=== PATIENT | male | born 1950 | race Caucasian/White ===

== ENCOUNTER 2017-06-30 12:10 | Inpatient (IN) ==
[2017-07-06 06:16] VITALS: BMI 37.2
[2017-07-06] MEDS: LR 1,000 ML IV SCH ×3 (06:20→11:07)
[2017-07-06] MEDS: FLEET PHOSPHO - SODA ENEMA 133ml PR PRN ×2 (06:50→07:03)
[2017-07-06] MEDS ORDERED: FentaNYL 250 MCG/5 ML INJECTION ONE ×2 (07:12→11:00)
[2017-07-06] MEDS ORDERED: PROPOFOL 20 ML ONE ×2 (07:12→07:13)
[2017-07-06] MEDS ORDERED: LACRI-LUBE EYE OINT 3.5gm ONE (07:12)
[2017-07-06] MEDS ORDERED: ONDANSETRON 4 MG/2 ML INJECTION ONE ×2 (07:12→07:54)
[2017-07-06] MEDS ORDERED: SUCCINYLCHOLINE 20mg/mL 10mL INJECTION ONE (07:13)
[2017-07-06] MEDS ORDERED: ROCURONIUM 50 MG/5 ML INJECTION IVP ONE ×2 (07:13→11:46)
[2017-07-06] MEDS ORDERED: SCOPOLAMINE 1mg/3 days PATCH TD ONE ×2 (07:14→07:22)
[2017-07-06] MEDS: ESMOLOL IV ONE ×3 (07:45→10:43)
[2017-07-06] MEDS: KETAMINE IV ONE ×3 (07:45→10:43)
[2017-07-06] MEDS: DEXMEDETOMIDINE IV ONE ×2 (07:45→10:43)
[2017-07-06] MEDS: [UNRECOGNIZED DRUG - OTHER] IV ONE ×2 (07:45→10:43)
[2017-07-06] MEDS: LIDOCAINE 2% IV ONE (07:45)
[2017-07-06] MEDS: [UNRECOGNIZED DRUG - OTHER] IV ONE (07:45)
[2017-07-06] MEDS: PROPOFOL IV ONE ×3 (07:45→10:43)
[2017-07-06] MEDS ORDERED: METOCLOPRAMIDE 10mg/2ml INJECTION ONE (07:54)
[2017-07-06] MEDS ORDERED: DEXAMETHASONE 4 MG/ML INJECTION ONE (07:54)
[2017-07-06] MEDS ORDERED: MIDAZOLAM 2mg/2ml INJECTION ONE ×3 (08:26→12:37)
[2017-07-06] MEDS ORDERED: SALINE FLUSH *Sterile* 10 ML SYRINGE ONE (08:50)
[2017-07-06] MEDS ORDERED: PHENYLEPHRINE INJ 10 MG/ML VIAL IV ONE (08:50)
[2017-07-06] MEDS ORDERED: NS 1,000 ML IV SCH ×2 (10:14→14:17)
[2017-07-06] MEDS ORDERED: DEXMEDETOMIDINE IV ONE (10:15)
[2017-07-06] MEDS ORDERED: PROPOFOL IV ONE (10:15)
[2017-07-06] MEDS ORDERED: ESMOLOL IV ONE (10:15)
[2017-07-06] MEDS ORDERED: KETAMINE IV ONE (10:15)
[2017-07-06] MEDS ORDERED: [UNRECOGNIZED DRUG - OTHER] IV ONE (10:15)
[2017-07-06] MEDS ORDERED: FUROSEMIDE 40 MG/4 ML INJECTION ONE (10:56)
[2017-07-06] MEDS ORDERED: METOPROLOL 5mg/5ml INJECTION IVP ONE (11:01)
[2017-07-06] MEDS ORDERED: NS IV PRN ×2 (12:03→12:34)
[2017-07-06] MEDS ORDERED: PHENYLEPHRINE IV PRN (12:03)
[2017-07-06] MEDS ORDERED: VASOPRESSIN 20unit/ml INJECTION ONE (12:10)
[2017-07-06] MEDS ORDERED: NOREPINEPHRINE DRIP IV PRN (12:34)
--- NOTE | 2017-07-06 13:42 | General Surgery Procedure Note ---
Date of Procedure: 07/06/17 Surgeon: Albina Porras (Sharita) [employer] Operations Vice President: Bob Pete APRN Postoperative Diagnosis: Colon cancer at 20 cm from anal verge, Right kidney mass Procedure: 1.Open Low Anterior Resection with Primary anastomosis , 2. Partial right nephrectomy. Estimated Blood Loss: See Anesthesia Record.
[2017-07-06] MEDS ORDERED: ONDANSETRON 4 MG/2 ML INJECTION IVP PRN (14:17)
[2017-07-06] MEDS ORDERED: MORPHINE PCA 30 MG/30 ML SYRINGE IV PRN (14:17)
[2017-07-06] MEDS ORDERED: MIDAZOLAM 5mg/5ml INJECTION IV PRN (14:17)
[2017-07-06] MEDS ORDERED: METOCLOPRAMIDE 10mg/2ml INJECTION IVP PRN (14:17)
[2017-07-06] MEDS ORDERED: FentaNYL 100 MCG/2 ML INJECTION IVP PRN (14:17)
[2017-07-06] MEDS ORDERED: LIDOCAINE 1% (10mg/ml) 2mL INJ PF SDV ID ONE (14:35)
[2017-07-06] MEDS ORDERED: HEPARIN SUB-Q 5,000units/0.5ml INJECTION SQ ONE (14:44)
[2017-07-06] MEDS ORDERED: MetroNIDAZOLE PB 500 MG/100 ML BAG IV SCH (14:45)
[2017-07-06] MEDS ORDERED: LEVOFLOXACIN PB 750 MG/150 ML BAG IV SCH (14:45)
[2017-07-06] MEDS ORDERED: THROMBIN 5000 UNIT OPSITE ONE ×2 (15:30→15:33)
--- NOTE | 2017-07-06 15:38 | History & Physical Report ---
History of Present Illness Date: 07/06/17 Chief complaint: Colon Adenocarcinoma, S/P resection HPI: Shaun is a 67 yr old male who has been under the memory care as Dr. Mejia. Patient underwent a colonoscopy on 06/20/17 that unfortunately revealed invasive moderate differential colonic adenocarcinoma. Also, upon further radiologic studies. Patient was found to have a mass in the right kidney which was of high suspicion for renal cell carcinoma. CT scan also revealed no on sigmoid colon with increase in number of lymph nodes in the sigmoid mesentery and retroperitoneal adenopathy with increased concern for metastatic disease. Patient was scheduled for a open sigmoid resection and lower anterior resection along with urologic involvement by Dr. Sheriff. He presented for this planned procedure of open low anterior resection of primary asked most cysts along with partial right nephrectomy today on 07/06/17. It is reported that during this procedure patient did lose a significant amount of blood and received a total of 8 units of packed irradiated, Leuko-reduced red blood cells, Along with FFP and Cryo infusion. Patient was intubated and placed on Robbin-Synephrine Drip as well as Propofol/Ketamine drip intraoperative. He was admitted to the ICU and the hospitalist services were consulted for ongoing medical management. At time of examination he has just returned from OR and is in ICU. Robbin- Synephrine drip was weaned down in half at time of transfer to ICU and breath. Blood pressures remain 150-165 systolic. He remains in atrial fibrillation, rapid ventricular rate 120s to 130s, patient does have a known history of atrial fibrillation preoperatively. Review of Systems ROS unobtainable: due to mental status Review of systems: Able to obtain review of systems, currently on ventilator Past Medical History Patient Stated Medical History Chronic atrial fibrillation Coronary artery disease Type II diabetes Hypertension History of iron deficiency anemia Osteoarthritis Obesity Surgical History: Low anterior resection-07/06/17- [facility]. Partial right nephrectomy-07/06/17- Dr. Sheriff. Cholecystectomy 2012- [facility]. Cardiac catheterization EF 60%, diatal LAD 90% stenosis Jose J. Colonoscopy adenocarcinoma rectum 06/20/2017 Family History Updates: Mother , age 83. Diabetes. HTN ( hypertension). Heart attack. Brother. Diabetes. HTN (hypertension). Heart attack. Stroke. Sister. Diabetes. Heart attack. HTN (hypertension). Stroke - Social History Smoking status: Former smoker (, quit 44 years ago) Substance use type: does not use Alcohol intake frequency: does not drink Housing: house Household members: spouse Current occupational status: retired Current residence: Apartment/Private Home Social history: Primary care provider-Dr. Mejia Order Caller-Dr. Lux Medications Home Medications Medication Instructions Recorded Confirmed Type Aspirin [Aspirin EC] 325 mg PO DAILY #0 07/06/08 07/05/17 History Atenolol 100 mg PO DAILY #0 07/06/08 07/06/17 History lisinopril 20 mg tablet 20 mg PO DAILY 01/03/17 07/06/17 History Multivitamin [Chewable-Kamlesh] 2 tab PO DAILY 04/12/17 07/06/17 History Atorvastatin [Lipitor] 40 mg PO HS 04/27/17 07/06/17 History Glucophage (metformin) 500 mg 500 mg PO BID #2 tab 05/27/17 07/06/17 History tablet Naproxen sodium 220 mg tablet 220 mg PO Q12H PRN 06/07/17 07/06/17 History Allergies Allergy/AdvReac Type Severity Reaction Status Date / Time Penicillins Allergy Unknown unknown Verified 07/06/17 06:06 Exam Vital Signs: Temperature 97.8 F 07/06/17 06:15 Pulse Rate 117 H 07/06/17 14:10 Respiratory Rate 13 07/06/17 14:10 Blood Pressure 122/68 07/06/17 06:15 Pulse Oximetry 92 07/06/17 14:10 Telemetry Rhythm: A-fib with RVR Height/Weight/BMI: Height 1.83 m Weight 124.5 kg Body Mass Index 37.2 - Constitutional Present: no acute distress, morbidly obese, somnolent - Routine HEENT Exam ENT: Present: mucous membranes moist - Routine Respiratory Exam Present: CTA bilaterally Comments: On ventilator - Routine Cardiovascular Exam Present: RRR, S1, S2 - Routine Abdominal Exam Present: soft Comments: Large post-op dressing intact. No evidence of bleeding through Dressing - Routine Extremities Exam Present: pulses intact - Routine Skin Exam Present: intact, dry, warm - Routine Neurological Exam Present: altered mental status - Routine Psychiatric Exam Present: unable to assess Results - Labs CBC & Chem 7: 07/06/17 14:05 07/06/17 12:55 - ABG Interpretation ABG results: 07/06/17 12:55 ABG pH 7.280 L ABG pCO2 38 ABG pO2 316 H ABG HCO3 17.9 L ABG Total CO2 19.1 L ABG O2 Saturation 100.0 H ABG Base Excess -8.2 L Assessment and Plan (1) Hypotension Current visit: Yes Status: Acute (2) Adenocarcinoma Current visit: Yes Status: Acute (3) S/P colon resection Current visit: Yes Status: Acute (4) Renal mass Current visit: Yes Status: Acute Assessment and Plan: Impression Hypotension, intraoperative-RLL 07/06/17 Significant Intraoperative blood loss S/P Sigmoid Resection S/P- right partial nephrectomy related to renal mass Adenocarcinoma of the colon Coronary artery disease Atrial fibrillation-chronic Hypertension Diabetes History of iron deficiency anemia Obesity Plan Patient seen post-op in ICU. Medical consultation to hospitalist services for medical management of existing comorbidities. At this time, patient is in serious condition, however, stable on the ventilator. Artline is zeroed and blood pressures are evaluated at the bedside. Systolic blood pressures remain 150-165 systolic. Will stop norepinephrine drip and monitor carefully. He continues to be on normal saline, will finish current liter and then switched to D5 half-normal saline. He is at significant risk for fluid overload given the amount of IV fluids and blood products he received in the operating room. It does appear intraoperatively he did receive a one-time dose of 40 milligrams of IV Lasix. He may require further diuresis later on. Toradol and Lovenox are both contraindication at this time, given the need for renal preservation and recent bleeding Will continue to follow serial blood counts.CBC and Renal panel at 1800 today. Recheck ABG at this time. Check CBC, BMP, mg, ABG and Chest Xray tomorrow morning Monitor Accuchecks SCDs to bilateral lower extremity for DVT prophylaxis Will discuss further orders and plan of care with attending, Dr. Goel. Admit discharge medical care will return to primary care provider, Dr. Mejia DVT Prophylaxis: SCD's GI Prophylaxis: Protonix Resuscitation Status: Full Code - Time spent with patient Time with patient PN: 50 minutes Coordination of Care: >50% of visit spent providing counseling/coordination of care - Physician Narrative Physician: Daxa Goel MD Narrative: Date: 07/06/17 Time: 1820 I have independently evaluated and examined this patient. I reviewed the chart, the patient's history, and the LAB INSTRUCTOR/PA's documented findings as above. We discussed and formulated the assessment and plan as above with additions as below: I was called urgently to see Mr. Jones with surgical team a surgery was completed due to intraoperative hypotension and large volume blood loss. He transferred to the ICU on the ventilator and with Robbin-Synephrine infusing to maintain systolic blood pressure. He received 8 units of blood in the operating room in addition to cryo, FFP, and platelets or recent platelets. Blood pressure was about 140 systolic on arrival to ICU with Robbin-Synephrine infusing. Patient was sedated on arrival to the ICU and has subsequently had a fentanyl drip initiated for pain control. Robbin-Synephrine has been titrated off and FiO2 decreased progressively to 30% with stable oxygenation. Patient was unresponsive when evaluated earlier shortly after arrival in the ICU , breath sounds were clear anteriorly and cardiac rhythm slightly irregular. On reassessment at 1730 the patient was moving all extremities to command, gaze was conjugate, and he was nodding yes/no to indicate presence of pain and having seen his earlier. Anterior breath sounds are minimally coarse on reassessment, cardiac rhythm is irregular with low-grade tachycardia, and abdomen is distended without bowel sounds present. ABG at 4:30: 7.38/33/228/19.5 with FiO2 50%-discussed with respiratory therapy and patient subsequently titrated FiO2 30%. Discussed with Dr. Sheriff and Dr. Porras; patient breathing spontaneously when reevaluated with good tidal volumes. Plan to proceed with extubation this evening. Chest x-ray reviewed by myself demonstrating well-placed ET tube earlier today and slight increased vascular markings. Repeat chest x-ray in a.m. Patient has had significant volume replacement today with borderline urine output-may require diuresis tonight, do not believe additional fluid boluses will be needed for decreased urine output. Corrective scale insulin ordered, Accu-Cheks every 6 hours. Blood pressure has remained stable off Robbin-Synephrine for several hours. Hemoglobin 14.4 earlier this afternoon, repeat counts pending. Continue to monitor closely, at risk for complications of large volume blood transfusion. Hospital Course Summary Disclaimer: The visit summary below is not to be considered part of the above Progress Note. Hospital Course: Impression Significant Intraoperative blood loss S/P Sigmoid Resection S/P- right partial nephrectomy related to renal Mass Adenocarcinoma Coronary artery disease Atrial fibrillation-chronic Hypertension Diabetes History of iron deficiency anemia Obesity Plan Patient seen post-op in ICU. Medical consultation to hospitalist services for medical management of existing comorbidities. At this time, patient is in serious condition, however, stable on the ventilator. Artline is zeroed and blood pressures are evaluated at the bedside. Systolic blood pressures remain 150-165 systolic. Will stop norepinephrine drip and monitor carefully. He continues to be on normal saline, will finish current liter and then switched to D5 half-normal saline. He is at significant risk for fluid overload given the amount of IV fluids and blood products he received in the operating room. It does appear intraoperatively he did receive a one-time dose of 40 milligrams of IV Lasix. He may require further diuresis later on. Toradol and Lovenox are both contraindication at this time, given the need for renal preservation and recent bleeding Will continue to follow serial blood counts.CBC and Renal panel at 1800 today. Recheck ABG at this time. Check CBC, BMP, mg, ABG and Chest Xray tomorrow morning Monitor Accuchecks SCDs to bilateral lower extremity for DVT prophylaxis Will discuss further orders and plan of care with attending, Dr. Barriga. Admit discharge medical care will return to primary care provider, Dr. Mejia
--- NOTE | 2017-07-06 15:55 | XRay Report ---
Indication: post procedure PROCEDURE: XR chest post-procedure 1V: Encounter: Initial Comparison: None Findings: Endotracheal tube in place with the tip projecting 2 cm above the [place]. Nasogastric tube with the tip and side port projecting over the body of the stomach. Right PICC line with the tip projecting over the lower SVC. No pneumothorax. Left upper lobe possible atelectasis. No definite pleural effusion on this supine view. Heart size and mediastinal contours are within normal limits. Impression: Tubes and lines as above. .
[2017-07-06] MEDS: FentaNYL 1,000 MCG in NS 80 ML IV PRN (16:12)
--- NOTE | 2017-07-06 17:58 | Anesthesia Postoperative Note ---
- Date and Time Date: 07/06/17 Time: 17:57 - Status Patient Participated in Evaluation: Patient Intubated Vital Signs: Temperature 97.8 F 07/06/17 06:15 Pulse Rate 108 H 07/06/17 16:42 Respiratory Rate 18 07/06/17 16:42 Blood Pressure 122/68 07/06/17 06:15 Pulse Oximetry 100 07/06/17 16:42 Respiratory Function: Intubated Cardiovascular Function: Regular Pulse EKG: Sinus Rhythm Mental Status: Alert and Oriented (sedated on ventilator) Pain Intensity: 0 (FLACC) Unable to Assess Pain Due to: Medicated/Sleeping Hydration: IV Infusing Complications During Recover: None Apparent - Follow-Up Instructions Instructions: Per Surgeon
[2017-07-06] MEDS: D5-1/2NS with KCL 20mEq 1,000 ML IV SCH (18:51)
[2017-07-06] MEDS: PANTOPRAZOLE 40 MG INJECTION IVP SCH (19:54)
[2017-07-06] MEDS: NS FLUSH BAG 500ml IV PRN (19:57)
[2017-07-06] MEDS: INSULIN ASPART 100unit/ml INJECTION SQ PRN (23:26)
[2017-07-07] MEDS: FentaNYL 1,000 MCG in NS 80 ML IV PRN ×2 (02:45→18:51)
[2017-07-07] MEDS: D5-1/2NS with KCL 20mEq 1,000 ML IV SCH ×2 (02:45→10:25)
[2017-07-07] MEDS: INSULIN ASPART 100unit/ml INJECTION SQ PRN (04:31)
--- NOTE | 2017-07-07 08:26 | Operative Note ---
DATE OF SERVICE 07/06/2017 SURGEON Saulo Porras MD ASSISTANTS GLORIA Murphy MD PROCEDURE Low anterior resection, enterotomy with excision of apparent metastatic implant/ nodule involving terminal ileum with primary closure. ANESTHESIA General endotracheal. EBL AND FLUIDS Please see chart. BRIEF HISTORY/INDICATIONS Mr. Jones is a 69-year-old gentleman who recently was sent to my office as a result of the finding of anemia upon laboratory evaluation. The patient subsequently underwent endoscopic evaluation and, unfortunately, was found to have a near obstructing colon cancer at 20 cm from the anal verge. The patient did undergo metastatic workup preoperatively including a CT scan of the chest, abdomen and pelvis. Unfortunately, the CT scan of his abdomen did reveal an exophytic mass involving the lower pole of the right kidney. The patient was sent on to Urology who recommended the patient undergo a partial nephrectomy at the time of his colonic resection. The patient presents today to undergo these procedures. Partial nephrectomy portion of the procedure will be dictated by Dr. Tommy Sheriff. As a result of this invasive adenocarcinoma involving the sigmoid colon, it was recommended to the patient that he undergo surgical intervention. The patient presents today to undergo a sigmoid resection/low anterior resection. Again, for completeness, please refer to notes in the patient's chart. FINDINGS Upon laparotomy the liver edge was smooth without nodularities. The small bowel was run from the ligament of Treitz to the terminal ileum. Unfortunately, there was a portion of the small bowel that was adhered to the cancer within the pelvis. Although the mass was described at 20 cm from the anal verge, the mass itself was actually deep within the pelvis and was, unfortunately, adhered to the lateral pelvic abdominal wall. The ascending colon, transverse colon, descending colon otherwise was without palpable abnormalities. Stomach was without visible abnormalities. The right kidney description will be dictated by Dr. Sheriff. During mobilization of the mass from the left lateral pelvic wall one could see that it appeared that colon cancer had already perforated and had sealed itself often and was contained along the left lateral pelvic wall. One could see several enlarged lymph nodes adjacent to the mass involving the rectosigmoid junction. When the small bowel was able be freed from the mass and delivered back up into the abdominal cavity, one could see there was a whitish nodule/implant involving the terminal ileum. This apparent metastatic nodule/ implant was only about 8 cm from the ileocecal valve region. I elected therefore not to proceed with a segmental small bowel resection given its close proximity to the ileocecal valve region. A full-thickness excision of this nodule was performed with subsequent closure of the enterotomy. The tumor itself was able to be resected in its entirety and a primary anastomosis/ coloproctostomy was performed. Dissection was carried down below the peritoneal reflection. DESCRIPTION OF PROCEDURE After informed consent was obtained, the patient was brought to the operative suite and placed on the table in a supine fashion. The abdomen was then prepped and draped in sterile fashion. A formal time-out was then completed. A large midline incision was then made from the xiphoid process down to the suprapubic region. Underlying subcutaneous tissues, fascia and peritoneum was then opened to the extent of the incision. Abdominal cavity was explored. Findings were as noted above. Following a formal abdominal exploration, attention was focused to the pelvis. The small bowel that was adhered to the tumor itself was able to be dissected away sharply as well as bluntly. One could then see that there was an apparent metastatic nodule/implant involving the terminal ileum as discussed above. The apparent metastatic implant/nodule was about 8 cm from the ileocecal valve as discussed above. Attention was then focused back to the left colon. The white line of Toldt was incised upon the mid descending colon. The left colon was reflected medially. Initially dissection was carried up towards the splenic flexure. I elected to go ahead and mobilize the splenic flexure. Splenocolic and renocolic ligaments were divided under direct visualization and the splenic flexure was completely mobilized. Distal portion of the gastrocolic ligament was also divided until the splenic flexure had been completely mobilized. Attention was then focused towards the pelvis. As stated above, there was a large mass perhaps about 8 cm in diameter involving the rectosigmoid junction. The mass was densely adhered to the lateral pelvic wall. Mass was began to be dissected away from the pelvic wall and one then began to see roro stool-like material. One could see that it appeared that the colon perhaps had already perforated and walled itself off along the lateral pelvic wall. Upon palpation one could feel that the mass had extended into the lateral pelvic wall. At this time I focused my attention back towards identification of the left ureter. Left ureter was identified above the level of the iliacs. Left ureter was then carefully dissected out in a [id number] fashion. One could then see that the ureter itself was adjacent to this large mass involving the left lateral pelvic wall. The ureter itself was then continued to be carefully and meticulously dissected away from the tumor itself. Once the ureter had been completely freed away from the tumor, attention was then directed towards the portion of the tumor that had become contiguous with the left lateral pelvic wall. This portion of the left lateral pelvic wall was excised grossly in its entirety and submitted for pathologic evaluation. A point about 8-10 cm proximal to the visible mass was then obtained upon the descending colon. A small opening was then created within mesentery at this location. A GI-75 stapler was placed across the colon at this location and fired. The mesentery at this level was then sequentially divided down to the sacral promontory sequentially between right angle clamps. As one reached the root of the mesentery, one could see multiple enlarged lymph nodes. These enlarged lymph nodes were resected in continuity with the specimen. Dissection was carried out beyond the visible enlarged lymph nodes down to the origin of the vessels. Now dissection had been carried down to the sacral promontory. Presacral space was then entered and the mesorectum was then dissected off the sacrum in the presacral space under direct visualization. A lighted [employer]. Michel's retractor was utilized to provide exposure. As stated above the tumor itself was lower than I had anticipated and was within the pelvis. The lateral mesorectum was excised and dissection was carried down below the peritoneal reflection. Dissection was carried out until approximately 6-8 cm had been dissected out beyond the tumor itself. Rectum at this level was then dissected out circumferentially. A contour stapler was then placed across the rectum at this location and fired. The remaining mesorectum was then sequentially divided between right angle clamps and ligated with a combination of 0 Vicryl and 3-0 Vicryl ties. At this time the rectum, mass and distal descending colon was then passed off the table as a surgical specimen. The proximal staple line was then brought forth into the pelvis without any undue tension. Attention was then directed towards performing the anastomosis. The left ureter was again identified and remained to be intact in its entirety. Prior areas of dissection were inspected and found to be hemostatic in nature. Two Allis clamps were then placed upon the proximal staple line and the staple line itself was then transected. Three Allis clamps were then placed upon the transected end of the colon. Up to a 31 mm EEA sizer was then placed within the transected end of the colon without difficulty. A pursestring suture with 2-0 Prolene was then placed circumferentially around the transected end of the colon. A 33-mm EEA stapler was then brought forth the operative field. The anvil portion of the stapler was placed within the pursestring suture and the pursestring suture was then tied securely resulting in nice imbrication of the transected colon adjacent to the anvil portion of the stapler. Next, I had my assistant activities director then "go below." My assistant activities director performed a 3-4 finger anal dilatation. 33-mm EEA stapler was then placed into the anal verge and advanced up to the staple line upon the rectum. I then had my assistant activities director advance the trocar portion of stapler outward. Trocar portion of the stapler was allowed to exit just anterior to the staple line upon the rectum. Anvil portion of stapler was then attached to the trocar portion of the stapler and tightened to the appropriate tension and fired. Stapler was then loosened and withdrawn from the anal verge. Two complete doughnuts of tissue were obtained within the stapler. Saline was then placed within the pelvis until the anastomosis was beneath water. I then grasped the descending colon proximal to the anastomosis. I then had my assistant activities director place a rigid proctoscope into the anal verge/anal canal and insufflate the rectum and anastomosis. With the anastomosis fairly taut with air and air passing out adjacent to the rigid proctoscope at the anus, one could not see any evidence for extravasation of air bubbles coming forth through the saline, i.e., the anastomosis was airtight. Saline was then suctioned. Anastomosis was without any evidence for vascular compromise. There was no tension on the anastomosis. Left ureter was again identified and remained to be intact. Prior areas of dissection were again inspected and found to be hemostatic in nature. At this time attention focused towards the partial nephrectomy portion. This portion of the procedure will be dictated by Dr. Sheriff. I did help provide exposure to the right kidney. The white line of Toldt along the right pericolic gutter was incised. The hepatic flexure was mobilized. The patient had undergone a prior cholecystectomy and there was some omentum adhered to the gallbladder fossa which was divided with electrocautery. Hepatic flexure was completely mobilized and reflected medially and caudally. The duodenum was also Kocherized and reflected medially. Complete exposure of the right kidney and right pedicle at this time had been obtained. The remaining portion of the partial nephrectomy will be dictated by Dr. Sheriff. Following completion of the partial nephrectomy, attention was directed towards closure. Instrument, sponge and needle counts were performed and found to be correct. Fascia was closed in running fashion with #1 PDS suture. A 19-Swedish drain was placed and allowed to exit within the right upper quadrant. The drain was placed along the right pericolic gutter in case the patient would develop a postoperative urinary leak from the partial nephrectomy. Attention was then directed towards closure of the subcutaneous tissues once the fascia had been closed. Given the patient's obesity, I elected to place a 19-Swedish drain within the subcutaneous tissues. The subcutaneous tissues were irrigated with Betadine solution. A 19- Swedish drain was then placed adjacent to the fascia. The subcutaneous tissue was then closed in layers with 0 Vicryl. Skin edges were then imbricated utilizing viv. Drains were secured to the anterior abdominal wall with 2- 0 Prolene. The patient was in critical condition as a result of the blood loss that occurred during the partial nephrectomy. He was sent to the ICU in critical condition following completion of the procedure. Additionally, it should be noted that Bob Pete APRN, was present throughout the entire case and played a pivotal role in providing assistance and exposure during the course of the procedure. ANIRUDH
--- NOTE | 2017-07-07 08:30 | XRay Report ---
Indication: respiratory failure PROCEDURE: XR chest 1V: Encounter: Initial Comparison: July 06, 2017 Findings: Prior endotracheal tube has been removed. Nasogastric tube remains in place along with a right PICC line. Lungs are hypoinflated with linear atelectasis in both lungs. No focal lobar consolidation. No pneumothorax. Cardiomediastinal contours are stable. Impression: Extubation with bilateral areas of atelectasis. .
[2017-07-07] MEDS: PANTOPRAZOLE 40 MG INJECTION IVP SCH (08:49)
--- NOTE | 2017-07-07 09:17 | Operative Note ---
DATE OF THE PROCEDURE July 06, 2017 PREOPERATIVE DIAGNOSES 1. Right renal mass. 2. Colon cancer. POSTOPERATIVE DIAGNOSES 1. Right renal mass. 2. Colon cancer. PROCEDURE PERFORMED 1. Right open partial nephrectomy. 2. Intraoperative use of ultrasound. PRIMARY SURGERY Tommy Sheriff MD BLOOD LOSS 1000 mL of blood. FLUIDS 8 units of packed red blood cells. 1 PFC t. 1 cryo precipitate. INDICATION FOR THE PROCEDURE This is a 67-year-old male with a history of colon cancer who was found to have also a 4 cm right renal mass on staging. Dr. oPrras is taking the patient today for an open colectomy and after discussion of his options that patient also elects to undergo a concomitant right open partial nephrectomy in the same setting. The risks and benefits of the procedure were discussed with him and his and he agreed to proceed. DESCRIPTION OF THE PROCEDURE By the time I got to the OR the patient was already positioned in place and Dr. Porras had already started his portion of the procedure. The patient was supine on the table and he had a midline incision. Once Dr. Porras had completed his portion of the procedure, I took over to perform the right open partial nephrectomy. Please refer to Dr. Porras's dictation for the first part of the procedure. I began by reflecting the right colon off Gerota's fascia. I then kocherized the duodenum medially which exposed the IVC. I then identified the psoas muscle and the right ureter. I then marched up until I reached the renal hilum. I identified the right renal vein and it was dissected and a vessel loop was placed around it. I then dissected the renal artery and also placed a vessel loop around it. Of note, the renal artery had early bifurcation and so I placed two vessel loops, one around each branch. Once I had the hilum dissected, I turned my attention to defatting of the kidney. The Gerota's fascia was opened on top of the kidney. The kidney was defatted almost completely and I exposed the tumor which was localized in the posterior midpoint of the kidney. The posterior aspect of the kidney and upper pole * were completely mobilized in order to gain maximal mobility. I then used the drop-in ultrasound probe to visualize the tumor and carrie the margin of the tumor with a Bovie. I then clamped the renal arteries and vein and confirmed absence of flow with the Doppler. The kidney was also placed on ice during clamping. After about 10 minutes of icing, I began by performing the partial nephrectomy using Metzenbaum scissors. The tumor was excised completely with a margin of healthy tissue. During excision, I noted some significant bleeding from a major venous branch in the bed of the partial nephrectomy. I attempted to control the bleeding by [id number] 3-0 PDS; however, this was not successful. At this point I decided to apply pressure on the kidney in order to control the bleeding that was significant and allow the patient to get blood transfusion meanwhile. I then placed a larger clamp at the base of the renal artery and it seemed that that slowed down the bleeding quite a bit. Once this was done I placed renorrhaphy sutures using 0 Vicryl with Hem-o-za clips on the tail. Using the sliding clip technique, I then approximated the edge of the defect in the kidney. I also placed thrombin and Surgicel in the bed of the partial nephrectomy. At this point it appeared that the bleeding was well controlled. We had about 1000 mL of blood loss and the patient received multiple units of blood; however, he was stable. I then unclamped the renal vein and the two branches of the renal artery along with the additional clamp that I placed at the base of the renal artery next to the aorta. There was good reperfusion of the kidney and there was no significant bleeding noted from the partial nephrectomy bed. Total cold ischemia time was 54 minutes. I then observed the kidney for another 5 minutes and, again, there was no bleeding noted. A drain was then placed in the retroperitoneum behind the kidney. This was completed my portion of the case and then the care of the patient was turned back to Dr. Porras to complete his procedure. DISPOSITION The patient will be admitted to the Intensive Care Unit postoperatively. I will along with General Surgery to monitor for bleeding or any urine leak. ANIRUDH
[2017-07-07] MEDS: MAGNESIUM SULFATE 1gm PREMIX 1 GM/100 ML BAG IV SCH ×2 (10:24→11:37)
--- NOTE | 2017-07-07 15:30 | Progress Note ---
DATE OF SERVICE 07/07/2017 FINDINGS Mr. Jones, surprisingly looks quite well today despite the magnitude of surgery that he had undergone yesterday. He denied much in the way of severe abdominal pain. EXAM VITAL SIGNS: Afebrile, normotensive. Remains slightly tachycardic. CHEST: Clear to auscultation bilaterally. HEART: Regular rate and rhythm. Normal S1 and S2 without gallops, murmurs or clicks. ABDOMEN: Palpation of the abdomen reveals it to be soft with incisional tenderness present. His ANTONIO drains were serosanguineous but there was a minimal amount of a material within the drains. LABORATORY/RADIOGRAPHIC EVALUATION The patient had a CBC today and his hemoglobin is 12.1. White count is 10.7. BMP obtained and found to be without marked abnormalities. Glucose is slightly elevated to 39. ASSESSMENT 67-year-old gentleman status post low anterior resection, right partial nephrectomy, patient doing well from a clinical standpoint. PLAN Will go ahead and DC NG. The patient is on clear liquids. Will continue otherwise with current care. I appreciate hospitalists' care in this patient. ANIRUDH
[2017-07-07] MEDS: 1/2 NS with KCL 20mEq 1,000 ML IV SCH (16:41)
[2017-07-07] MEDS ORDERED: FUROSEMIDE 20 MG/2 ML INJECTION IVP ONE (18:17)
--- NOTE | 2017-07-07 18:18 | Progress Note ---
- Date 07/07/17 Subjective: Mr. Jones reports that his abdomen is uncomfortable but is having no nausea or vomiting. He denied dyspnea but has some cough and sputum production- abdominal pain increases with cough. He denied fevers or chills. He's not been out of bed but bed was repositioned into chair configuration allowing him to "sit" earlier today. He denies sore throat and is tolerating ice chips and sips of water. He is not aware of any flatus thus far. Objective Vital signs: Temperature 97.8 F 07/07/17 16:00 Pulse Rate 111 H 07/07/17 17:00 Respiratory Rate 25 H 07/07/17 17:00 Blood Pressure 123/68 07/07/17 17:00 Pulse Oximetry 95 -2 L 07/07/17 17:00 I/O 6229/1461 yesterday NAD, alert EOMI, conjunctiva clear, pupils equal, sclera anicteric, oropharynx clear Respirations nonlabored, good airflow, breast sounds clear anteriorly Regular rhythm, S1-S2 Abdomen is soft with mild generalized tenderness, no bowel sounds are appreciated Lower extremities without edema MAEW, sensation intact 4 extremities Rhythm: Atrial Fibrillation with RVR (Rate 110-120) Height/Weight/BMI: Height 1.83 m Weight 129.4 kg Body Mass Index 37.2 Results - Labs CBC & Chem 7: 07/07/17 04:16 07/07/17 04:16 Labs: S89 B6 L3 M2 Magnesium 1.4 - ABG Interpretation ABG results: 07/06/17 07/06/17 12:55 16:30 ABG pH 7.280 L 7.380 ABG pCO2 38 33 L ABG pO2 316 H 228 H ABG HCO3 17.9 L 19.5 L ABG Total CO2 19.1 L 20.5 L ABG O2 Saturation 100.0 H 100.0 H ABG Base Excess -8.2 L -4.8 L - Imaging and Cardiology Chest x-ray Status: image reviewed by me (poor inspiratory effort with basilar atelectasis, no focal infiltrate) Assessment and Plan (1) Hypotension Current visit: Yes Status: Acute Assessment and Plan: Impression Hypotension, resolved High-volume blood transfusion; intraoperative blood loss-8 u PRBC 07/06/17 S/P Sigmoid Resection for adenocarcinoma of the colon S/P- right partial nephrectomy related to renal mass, probable renal cell carcinoma Hypomagnesemia-07/07/17 Coronary artery disease Atrial fibrillation-chronic Hypertension Diabetes History of iron deficiency anemia Obesity Plan Extubated yesterday evening and has subsequently done well with oxygen titrated down to 2 L. Bumex given once due to poor urine output last night, responded well and renal function is well-preserved following partial nephrectomy yesterday. Fluid balance very positive however and will give additional Lasix tonight and assess response. Artline removed earlier today. Blood pressure has been stable following initial instability in the operating room and immediately after surgery. Robbin-Synephrine was titrated off immediately after he arrived in the ICU and there's been no further hypotension. Toradol and Lovenox are both contraindication at this time given the need for renal preservation and recent bleeding Will continue to follow serial blood counts.CBC and Renal panel at 1800 today. Blood sugars moderately elevated due to surgical stress and administration of D5 with IV fluids. Fluids modified, continue corrective insulin. Magnesium corrected IV earlier today. Calcium stable despite multiple blood transfusions yesterday. Heart rate slightly elevated, chronic atrial fibrillation. We will resume half dose atenolol with sip of water tonight, usual dose in a.m. Pathology pending for bowel resection and renal mass. Discussed with Dr. Porras and nursing. DVT Prophylaxis: SCD's GI Prophylaxis: Protonix Resuscitation Status: Full Code - Physician Narrative Narrative: Date: 07/07/17 Time: 1814 Hospital Course Summary Disclaimer: The visit summary below is not to be considered part of the above Progress Note. Hospital Course: Impression Significant Intraoperative blood loss S/P Sigmoid Resection S/P- right partial nephrectomy related to renal Mass Adenocarcinoma Coronary artery disease Atrial fibrillation-chronic Hypertension Diabetes History of iron deficiency anemia Obesity Plan-07/06/17 Patient seen post-op in ICU. Medical consultation to hospitalist services for medical management of existing comorbidities. At this time, patient is in serious condition, however, stable on the ventilator. Artline is zeroed and blood pressures are evaluated at the bedside. Systolic blood pressures remain 150-165 systolic. Will stop norepinephrine drip and monitor carefully. He continues to be on normal saline, will finish current liter and then switched to D5 half-normal saline. He is at significant risk for fluid overload given the amount of IV fluids and blood products he received in the operating room. It does appear intraoperatively he did receive a one-time dose of 40 milligrams of IV Lasix. He may require further diuresis later on. Toradol and Lovenox are both contraindication at this time, given the need for renal preservation and recent bleeding Will continue to follow serial blood counts.CBC and Renal panel at 1800 today. Recheck ABG at this time. Check CBC, BMP, mg, ABG and Chest Xray tomorrow morning Monitor Accuchecks SCDs to bilateral lower extremity for DVT prophylaxis RLL-extubated in the evening, Bumex given for poor urine output. 07/07/17 Doing well, tolerating ice chips. No further respiratory distress or hypertension. Blood sugars modestly elevated-D5 discontinued, continue 1/2NS with KCl. Magnesium replaced IV earlier today. Heart rate slightly elevated-half dose atenolol resumed tonight with plans to resume normal dose in the morning.
[2017-07-07] MEDS ORDERED: ATENOLOL 50 MG TABLET PO ONE (18:30)
[2017-07-08] MEDS: 1/2 NS with KCL 20mEq 1,000 ML IV SCH ×3 (02:41→22:55)
[2017-07-08] MEDS: NS FLUSH BAG 500ml IV PRN (04:31)
[2017-07-08] MEDS ORDERED: SALINE FLUSH 10ml SYRINGE IV PRN (04:32)
[2017-07-08] MEDS: PANTOPRAZOLE 40 MG INJECTION IVP SCH (09:09)
[2017-07-08] MEDS: ATENOLOL 100 MG TABLET PO SCH (09:09)
[2017-07-08] MEDS: FentaNYL 1,000 MCG in NS 80 ML IV PRN (10:20)
--- NOTE | 2017-07-08 16:24 | Progress Note ---
- Date 07/08/17 Subjective: Mr. Jones was resting in bed when seen. He reports ongoing pain when he coughs but otherwise denied dyspnea. He had minimal sputum production this morning but otherwise denies respiratory symptoms. He said no nausea or vomiting and has not yet had a bowel movement or flatus. He is not lightheaded when he is up and has had no fever or chills. He is tolerating ice chips and water and reports having some Jell-O earlier without difficulty. Pain control is good. Objective Vital signs: Temperature 98.3 F 07/08/17 08:05 Pulse Rate 108 H 07/08/17 12:00 Respiratory Rate 23 07/08/17 12:00 Blood Pressure 118/62 07/08/17 12:00 Pulse Oximetry 96 -1 L 07/08/17 12:00 I/O 3382/2258 NAD, alert Conjugate gaze, EOMI, conjunctiva clear, oropharynx clear Respirations nonlabored, diminished air flow throughout but breath sounds are clear Slightly irregular rhythm, S1-S2, low-grade tachycardia with seen Abdomen is soft, nontender to light palpation, no bowel sounds present Without edema, MAEW Rhythm: Atrial Fibrillation with RVR (Rate 110-120) Height/Weight/BMI: Height 1.83 m Weight 129.6 kg Body Mass Index 37.2 Results - Labs CBC & Chem 7: 07/08/17 04:17 07/08/17 04:17 Labs: S85 B4 L8 M3 - ABG Interpretation ABG results: 07/06/17 16:30 ABG pH 7.380 ABG pCO2 33 L ABG pO2 228 H ABG HCO3 19.5 L ABG Total CO2 20.5 L ABG O2 Saturation 100.0 H ABG Base Excess -4.8 L Assessment and Plan (1) Hypotension Current visit: Yes Status: Acute Assessment and Plan: Impression Hypotension, resolved High-volume blood transfusion; intraoperative blood loss-8 u PRBC 07/06/17 S/P Sigmoid Resection for adenocarcinoma of the colon S/P- right partial nephrectomy related to renal mass, probable renal cell carcinoma Hypomagnesemia-07/07/17 Coronary artery disease Atrial fibrillation-chronic Hypertension Diabetes History of iron deficiency anemia Obesity Plan Blood pressure stable, urine output good. Requiring minimal supplemental oxygen. Awaiting recovery of bowel function. Toradol and Lovenox are both contraindication at this time given the need for renal preservation and recent blood loss. Renal function doing well, creatinine 1.0. Blood sugars improved, metformin remains on hold. Magnesium replaced yesterday and level stable. Hemoglobin dropping slowly after large-volume transfusion during surgery. Heart rate slightly elevated-atenolol resumed yesterday. Pathology reported out this afternoon confirming adenocarcinoma of the colon- moderately differentiated, 08/11 lymph nodes positive; clear cell carcinoma of the right kidney. - Physician Narrative Narrative: Date: 07/08/17 Time: 1618 Hospital Course Summary Disclaimer: The visit summary below is not to be considered part of the above Progress Note. Hospital Course: Impression Significant Intraoperative blood loss S/P Sigmoid Resection S/P- right partial nephrectomy related to renal Mass Adenocarcinoma Coronary artery disease Atrial fibrillation-chronic Hypertension Diabetes History of iron deficiency anemia Obesity Plan-07/06/17 Patient seen post-op in ICU. Medical consultation to hospitalist services for medical management of existing comorbidities. At this time, patient is in serious condition, however, stable on the ventilator. Artline is zeroed and blood pressures are evaluated at the bedside. Systolic blood pressures remain 150-165 systolic. Will stop norepinephrine drip and monitor carefully. He continues to be on normal saline, will finish current liter and then switched to D5 half-normal saline. He is at significant risk for fluid overload given the amount of IV fluids and blood products he received in the operating room. It does appear intraoperatively he did receive a one-time dose of 40 milligrams of IV Lasix. He may require further diuresis later on. Toradol and Lovenox are both contraindication at this time, given the need for renal preservation and recent bleeding Will continue to follow serial blood counts.CBC and Renal panel at 1800 today. Recheck ABG at this time. Check CBC, BMP, mg, ABG and Chest Xray tomorrow morning Monitor Accuchecks SCDs to bilateral lower extremity for DVT prophylaxis RLL-extubated in the evening, Bumex given for poor urine output. 07/07/17 Doing well, tolerating ice chips. No further respiratory distress or hypertension. Blood sugars modestly elevated-D5 discontinued, continue 1/2NS with KCl. Magnesium replaced IV earlier today. Heart rate slightly elevated-half dose atenolol resumed tonight with plans to resume normal dose in the morning.
[2017-07-08] MEDS ORDERED: HYDROCODONE/APAP 5mg/325mg TABLET PO PRN (18:36)
--- NOTE | 2017-07-08 20:08 | Progress Note ---
DATE OF SERVICE 07/08/2017 FINDINGS The patient was seen earlier this evening on rounds. He was sitting upright in the bed and was without complaints. States his pain was well-controlled. Denied any nausea or vomiting. EXAM VITAL SIGNS: Afebrile, normotensive. Please refer to EMR. CHEST: Clear to auscultation bilaterally. HEART: Regular rate and rhythm. Normal S1 and S2 without gallops, murmurs or clicks. ABDOMEN: Abdomen soft. Minimal incisional tenderness. ANTONIO drains contain some minimal serosanguineous material. LABORATORY/RADIOGRAPHIC EVALUATION Hemoglobin has drifted down slightly to 10.3. This is not unexpected. BMP was obtained and found to be essentially within normal limits. Creatinine was 1.0. BUN 14.0. ASSESSMENT 67-year-old gentleman status post low anterior resection secondary to invasive adenocarcinoma and partial nephrectomy. Overall, patient doing well. PLAN Will go ahead advance to a full liquid diet. Will continue to keep in the ICU to monitor closely. I have spoken with have spoken with Dr. Stauffer who will be assuming care of this patient during my absence. Overall pleased with the patient's progress. I did review pathology report today that did reveal adenocarcinoma involving the colon. Tumor was 4.5 cm. Margins were free. There was a component of perforation noted intraoperatively. The patient was found to have 3 out of 22 lymph nodes positive. Nodule on bowel which was resected returned revealing metastatic mildly differentiated adenocarcinoma. The kidney lesion returned as that of a clear cell renal cell carcinoma. Margins were free. [facility]
[2017-07-08] MEDS: MORPHINE PCA 30 MG/30 ML SYRINGE IV PRN (21:50)
[2017-07-09] MEDS: ATENOLOL 100 MG TABLET PO SCH ×2 (07:56→15:30)
[2017-07-09] MEDS: PANTOPRAZOLE 40 MG INJECTION IVP SCH (08:05)
[2017-07-09] MEDS: 1/2 NS with KCL 20mEq 1,000 ML IV SCH ×2 (09:40→19:53)
--- NOTE | 2017-07-09 13:12 | Progress Note ---
DATE 07/09/2017 POSTOP DAY #3 HISTORY The patient is in the intensive care unit at this time. The patient has been ambulating in the intensive care unit. The patient is tolerating a full liquid diet. He has no nausea or vomiting. He has not passed any flatus or had a bowel movement yet. The patient has good pain control. PHYSICAL EXAMINATION VITAL SIGNS: Pulse is 103. Respiratory rate is 16. Blood pressure is 135/68. Oxygen saturation is 93%. ABDOMEN: The abdomen is soft. Dressings are in place over the abdominal incision. The patient has a couple of Peyman-Baum closed-suction drains in place. There is serosanguineous fluid in each of the Peyman-Baum drain bulbs. LABORATORY DATA White blood cell count is 8300 with no bands. Hemoglobin is 9.9. Hematocrit is 30.6. Serum electrolytes are normal. Serum creatinine is 0.9. IMPRESSION Doing well following low anterior colon resection and partial nephrectomy on . PLAN 1. Continue a full liquid diet for now. 2. Discontinue Wesley catheter. 3. Consider transferring patient from the intensive care unit out to the floor. 4. Continue sequential compression devices for deep venous thrombosis prophylaxis. [facility]
--- NOTE | 2017-07-09 13:26 | Progress Note ---
- Date 07/09/17 Subjective: Mr. Jones reports they generally feels well this morning. He denied dyspnea, nausea, fever, or chest pain. He's been ambulating. He continues to have abdominal pain and has not yet passed any gas or had a bowel movement. Barnett catheter remains in, hematuria has cleared, and urine output is good. Objective Vital signs: Temperature 98.9 F 07/09/17 13:12 Pulse Rate 103 H 07/09/17 12:15 Respiratory Rate 43 H 07/09/17 12:15 Blood Pressure 135/68 07/09/17 12:00 Pulse Oximetry 92 -1 L 07/09/17 12:15 I/O 3009/2605 NAD, alert, fluent speech EOMI, conjunctiva clear, sclera anicteric, oropharynx clear Respirations nonlabored, decreased airflow throughout sounds clear, splints with deep inspiration irreg rhythm, S1-S2 Abdomen soft, sparse bowel sounds present, multiple dressings over the abdomen, drain right flank with bloody drainage Extremities without edema, ambulates without difficulty MAEW, calm, cooperative Rhythm: Atrial Fibrillation with RVR (Rate 110-120) Height/Weight/BMI: Height 1.83 m Weight 130.6 kg Body Mass Index 37.2 Results - Labs CBC & Chem 7: 07/09/17 04:04 07/09/17 04:04 Assessment and Plan (1) Hypotension Current visit: Yes Status: Acute Assessment and Plan: Impression Hypotension, resolved High-volume blood transfusion; intraoperative blood loss-8 u PRBC 07/06/17 S/P Sigmoid Resection for adenocarcinoma of the colon S/P- right partial nephrectomy related to renal mass, probable renal cell carcinoma Hypomagnesemia-07/07/17 Coronary artery disease Atrial fibrillation-chronic Hypertension Diabetes History of iron deficiency anemia Obesity Plan Blood pressure stable, urine output good. Requiring minimal supplemental oxygen. Awaiting recovery of bowel function. Toradol and Lovenox are both contraindication at this time given the need for renal preservation and recent blood loss. Renal function doing well, creatinine 0.9. Blood sugars improved, metformin remains on hold. Magnesium stable. Hemoglobin dropping slowly after large-volume transfusion during surgery. PPI changed to po administration, resume statin. Pathology confirmed adenocarcinoma of the colon-moderately differentiated, / lymph nodes positive; clear cell carcinoma of the right kidney. d/c barnett, transfer to surgical unit. d/w Dr. Stauffer. DVT Prophylaxis: SCD's GI Prophylaxis: Protonix Resuscitation Status: Full Code - Physician Narrative Narrative: Date: 07/09/17 Time: 1322 Hospital Course Summary Disclaimer: The visit summary below is not to be considered part of the above Progress Note. Hospital Course: Impression Significant Intraoperative blood loss S/P Sigmoid Resection S/P- right partial nephrectomy related to renal Mass Adenocarcinoma Coronary artery disease Atrial fibrillation-chronic Hypertension Diabetes History of iron deficiency anemia Obesity Plan-07/06/17 Patient seen post-op in ICU. Medical consultation to hospitalist services for medical management of existing comorbidities. At this time, patient is in serious condition, however, stable on the ventilator. Artline is zeroed and blood pressures are evaluated at the bedside. Systolic blood pressures remain 150-165 systolic. Will stop norepinephrine drip and monitor carefully. He continues to be on normal saline, will finish current liter and then switched to D5 half-normal saline. He is at significant risk for fluid overload given the amount of IV fluids and blood products he received in the operating room. It does appear intraoperatively he did receive a one-time dose of 40 milligrams of IV Lasix. He may require further diuresis later on. Toradol and Lovenox are both contraindication at this time, given the need for renal preservation and recent bleeding Will continue to follow serial blood counts.CBC and Renal panel at 1800 today. Recheck ABG at this time. Check CBC, BMP, mg, ABG and Chest Xray tomorrow morning Monitor Accuchecks SCDs to bilateral lower extremity for DVT prophylaxis RLL-extubated in the evening, Bumex given for poor urine output. 07/07/17 Doing well, tolerating ice chips. No further respiratory distress or hypertension. Blood sugars modestly elevated-D5 discontinued, continue 1/2NS with KCl. Magnesium replaced IV earlier today. Heart rate slightly elevated-half dose atenolol resumed tonight with plans to resume normal dose in the morning.
[2017-07-09] MEDS: KETAMINE IV ONE (15:31)
[2017-07-09] MEDS: LIDOCAINE 2% IV ONE (15:31)
[2017-07-09] MEDS: ESMOLOL IV ONE (15:31)
[2017-07-09] MEDS: [UNRECOGNIZED DRUG - OTHER] IV ONE (15:31)
[2017-07-09] MEDS: PROPOFOL IV ONE (15:31)
[2017-07-09] MEDS: ATORVASTATIN 40 MG TABLET PO SCH (22:28)
[2017-07-10] MEDS: PANTOPRAZOLE 40 MG TABLET PO SCH (06:11)
[2017-07-10] MEDS: 1/2 NS with KCL 20mEq 1,000 ML IV SCH ×2 (06:11→17:12)
[2017-07-10] MEDS: MORPHINE PCA 30 MG/30 ML SYRINGE IV PRN (07:06)
[2017-07-10] MEDS: ATENOLOL 100 MG TABLET PO SCH (08:09)
--- NOTE | 2017-07-10 12:43 | Progress Note ---
- Date 07/10/17 Subjective: Shaun is seen today in follow up. Reports feeling fairly well. States pain is controlled. Not passing gas yet. Has been up walking in the halls. Chart is reviewed. Objective Vital signs: Temperature 97.1 F 07/10/17 12:00 Pulse Rate 112 H 07/10/17 12:00 Respiratory Rate 16 07/10/17 12:00 Blood Pressure 113/65 07/10/17 12:00 Pulse Oximetry 93 07/10/17 12:00 Rhythm: Atrial Fibrillation with RVR (Rate 110-120) Height/Weight/BMI: Height 1.83 m Weight 132.5 kg Body Mass Index 37.2 - Constitutional Present: no acute distress, obese, cooperative - Routine HEENT Exam Head: Present: normocephalic, atraumatic Eye: Present: EOMI, PERRL ENT: Present: mucous membranes moist. Absent: dentition normal (Patient demonstrates repetative jaw and mouth movements. ) - Routine Respiratory Exam Present: decreased breath sounds, CTA bilaterally. Absent: dyspnea, rales, rhonchi, crackles - Routine Cardiovascular Exam Present: S1, S2, irregular rhythm - Routine Abdominal Exam Present: soft, tenderness, distended (Tympanic). Absent: normoactive bowel sounds (Minimal BS. Abd is soft, but distended. ) - Routine Extremities Exam Present: no edema, non tender Comments: Rash c/w fungal infection to posterior heels and to feet. No open areas or areas of blanching or changes c/w pressure wound. - Routine Musculoskeletal Exam Musculoskeletal: Present: limited range of motion - Routine Skin Exam Present: intact, dry, warm, rash - Routine Neurological Exam Present: alert, oriented X3, moving all extremities - Routine Psychiatric Exam Present: cooperative. Absent: depressed, anxious Results - Labs CBC & Chem 7: 07/10/17 03:52 07/10/17 09:38 Assessment and Plan (1) Hypotension Current visit: Yes Status: Acute Assessment and Plan: Impression Hypotension, resolved High-volume blood transfusion; intraoperative blood loss-8 u PRBC 07/06/17 S/P Sigmoid Resection for adenocarcinoma of the colon S/P- right partial nephrectomy related to renal mass, probable renal cell carcinoma Hypomagnesemia-07/07/17 Coronary artery disease Atrial fibrillation-chronic Hypertension Diabetes History of iron deficiency anemia Obesity Fungal dermatitis Plan 07/10/17 Blood pressure stable, urine output trending down. Weight is up 3kg. He is a bit tachycardic. Will give one low-dose round of Lasix. Requiring minimal supplemental oxygen. Encourage activity. Check CXR in AM for stability. Awaiting recovery of bowel function. May need KUB for assessment. Toradol and Lovenox are both contraindication at this time given the need for renal preservation and recent blood loss. Renal function doing well, creatinine 0.9. Blood sugars improved, metformin remains on hold. Magnesium stable- repeat in am Hemoglobin dropping slowly after large-volume transfusion during surgery. Likely some hemodilution as well. Gentle diuresis today, repeat labs in AM. PPI changed to po administration, resume statin. Pathology confirmed adenocarcinoma of the colon-moderately differentiated, 08/11 lymph nodes positive; clear cell carcinoma of the right kidney. Wesley out. Voiding adequately. He does have repetitive mouth movements- unclear if this is baseline. I am going to DC the PRN reglan, though I don't see that he has gotten any of it. No other psychoactive meds on board that I appreciate. Monitor. Quite a few areas of fungal skin changes. Continue nystatin. DVT Prophylaxis: SCD's GI Prophylaxis: Protonix Resuscitation Status: Full Code - Physician Narrative Physician: Daxa Goel MD Narrative: Date: 07/10/17 Time: 1529 I have independently evaluated and examined this patient. I reviewed the chart, the patient's history, and the ENDBANDER/PA's documented findings as above. We discussed and formulated the assessment and plan as above with additions as below: Mr. Jones was seen with his at bedside. He reports that he is breathing more comfortably today and denies nausea, abdominal pain/cramping, or return of bowel function. He denies flatus however nursing reports that he passes gas every time he stands up or moves about. He is tolerating full liquid diet and has taken over 1000 mL in orally today. NAD, alert Respirations nonlabored, improved air flow and taking deeper breaths than he did prior days, breath sounds clear Slightly irregular rhythm with borderline tachycardia Abdomen moderately distended but soft, midline incision clean and dry with viv intact Fungal skin changes abdominal pannus with superficial excoriations, fungal skin changes medial thighs. Given good oral intake will decrease rate of IV fluid administration, nursing reports bowel function improving although patient does not recognize it. Continue ambulation. Pathology briefly reviewed with patient and his at their request and we discussed anticipated referral to oncology but I advised them that nothing will happen until his abdominal incision is well-healed so there is no caba to see oncology and this can be discussed with Dr. Porras when he returns. Coffee filters will be added to dry skin folds. Discussed with Dr. Stauffer earlier today. Hospital Course Summary Disclaimer: The visit summary below is not to be considered part of the above Progress Note. Hospital Course: Impression Significant Intraoperative blood loss S/P Sigmoid Resection S/P- right partial nephrectomy related to renal Mass Adenocarcinoma Coronary artery disease Atrial fibrillation-chronic Hypertension Diabetes History of iron deficiency anemia Obesity Plan-07/06/17 Patient seen post-op in ICU. Medical consultation to hospitalist services for medical management of existing comorbidities. At this time, patient is in serious condition, however, stable on the ventilator. Artline is zeroed and blood pressures are evaluated at the bedside. Systolic blood pressures remain 150-165 systolic. Will stop norepinephrine drip and monitor carefully. He continues to be on normal saline, will finish current liter and then switched to D5 half-normal saline. He is at significant risk for fluid overload given the amount of IV fluids and blood products he received in the operating room. It does appear intraoperatively he did receive a one-time dose of 40 milligrams of IV Lasix. He may require further diuresis later on. Toradol and Lovenox are both contraindication at this time, given the need for renal preservation and recent bleeding Will continue to follow serial blood counts.CBC and Renal panel at 1800 today. Recheck ABG at this time. Check CBC, BMP, mg, ABG and Chest Xray tomorrow morning Monitor Accuchecks SCDs to bilateral lower extremity for DVT prophylaxis RLL-extubated in the evening, Bumex given for poor urine output. 07/07/17 Doing well, tolerating ice chips. No further respiratory distress or hypertension. Blood sugars modestly elevated-D5 discontinued, continue 1/2NS with KCl. Magnesium replaced IV earlier today. Heart rate slightly elevated-half dose atenolol resumed tonight with plans to resume normal dose in the morning. 07/10/17 Blood pressure stable, urine output trending down. Weight is up 3kg. He is a bit tachycardic. Will give one low-dose round of Lasix. Requiring minimal supplemental oxygen. Encourage activity. Check CXR in AM for stability. Awaiting recovery of bowel function. May need KUB for assessment. Toradol and Lovenox are both contraindication at this time given the need for renal preservation and recent blood loss. Renal function doing well, creatinine 0.9. Blood sugars improved, metformin remains on hold. Magnesium stable- repeat in am Hemoglobin dropping slowly after large-volume transfusion during surgery. Likely some hemodilution as well. Gentle diuresis today, repeat labs in AM. PPI changed to po administration, resume statin. Pathology confirmed adenocarcinoma of the colon-moderately differentiated, 08/11 lymph nodes positive; clear cell carcinoma of the right kidney. Wesley out. Voiding adequately. He does have repetitive mouth movements- unclear if this is baseline. I am going to DC the PRN reglan, though I don't see that he has gotten any of it. No other psychoactive meds on board that I appreciate. Monitor. Quite a few areas of fungal skin changes. Continue nystatin.
[2017-07-10] MEDS ORDERED: FUROSEMIDE 20 MG/2 ML INJECTION IVP ONE (12:48)
[2017-07-10] MEDS: Oxycodone *IR* 5 MG TABLET PO PRN ×3 (13:06→21:16)
[2017-07-10] MEDS ORDERED: DiphenhydrAMINE 25 MG CAPSULE PO PRN (15:30)
[2017-07-10] MEDS: ATORVASTATIN 40 MG TABLET PO SCH (21:17)
--- NOTE | 2017-07-11 07:30 | XRay Report ---
EXAM: XR chest 1V LOCATION OF DICTATION: [facility] HISTORY: Atelectasis COMPARISON: July 07, 2017 FINDINGS: The heart size is normal. The mediastinal configuration is within normal limits. There are no consolidating opacities or pleural effusions. There is no pneumothorax. The osseous structures are within normal limits for the patient's age. IMPRESSION: No acute cardiopulmonary abnormalities demonstrated. .
[2017-07-11] MEDS: PANTOPRAZOLE 40 MG TABLET PO SCH (07:41)
[2017-07-11] MEDS: ATENOLOL 100 MG TABLET PO SCH (07:59)
--- NOTE | 2017-07-11 08:47 | Progress Note ---
DATE: 07/10/2017 POSTOP DAY #4 HISTORY The patient was transferred from the intensive care unit out to the surgical unit yesterday. The patient is ambulating in the halls. The patient is urinating without difficulty after removal of the Wesley catheter yesterday. The patient is tolerating a full liquid diet. He has no nausea or vomiting. He states he has not passed any flatus yet since the operation or had a bowel movement. PHYSICAL EXAMINATION VITAL SIGNS: Temperature is 96.8 degrees Fahrenheit temporal. Pulse is 100. Respiratory rate is 16. Blood pressure is 124/66. Oxygen saturation is 95% on room air. ABDOMEN: The abdominal incision looks good. The Peyman-Baum drain sites look good. There is serous fluid in the Peyman-Baum drain bulbs. LABORATORY DATA White blood cell count is 6700 with no bands. Hemoglobin is 9.5. Hematocrit is 29.4. Electrolytes are normal. Serum creatinine is 0.8. IMPRESSION Doing well following low anterior colon resection and partial nephrectomy on . PLAN 1. Continue full liquid diet for now. 2. Continue to advance activity as tolerated. 3. Continue sequential compression devices for deep venous thrombosis prophylaxis. [facility]
--- NOTE | 2017-07-11 09:56 | General Surgery Progress Note ---
Subjective Patient reports: feels better (has not used [facility] for about 24 hours, pain will controlled with oxycodone), tolerating liquids well (fulls, will advance to regular), voiding w/o difficulty, bowel movement, afebrile - Vital Signs Last Vital Signs Temp 96.0 F L 07/11/17 03:55 Pulse 104 H 07/11/17 03:55 Resp 18 07/11/17 03:55 BP 127/72 07/11/17 03:55 Pulse Ox 94 07/11/17 03:55 - Laboratory Result Diagrams: 07/11/17 04:19 07/11/17 04:19 - Abnormal Exam Skin: Yeasty rash in Panus area - Normal Exam General: awake, alert, oriented, no acute distress Cardiovascular: regular rhythm, regular rate Respiratory: equal bilaterally, no labored breathing Abdominal: soft, appropriately tender (midline), incision(s) (CDE, viv in tact, no erythema along incision but yeasty rash in panus area) Psychiatric: normal affect Assessment and Plan (1) Adenocarcinoma of sigmoid colon Current Visit: Yes Status: Acute (2) Renal cell carcinoma Current Visit: Yes Status: Acute (3) H/O partial nephrectomy Current Visit: Yes Status: Acute (4) S/P colon resection Current Visit: Yes Status: Acute (5) Hypertension Current Visit: No Status: Acute (6) Obesity, morbid, BMI 40.0-49.9 Current Visit: No Status: Acute (7) Primary osteoarthritis of right hip Current Visit: No Status: Acute Plan: He is doing well, had a 2 BM's and tolerating full liquids, will advance to regular diet. Pathology discussed with and she is requesting appointment with Dr. Richardson , appointment made for 07/14 at 12:30 (there was a cancellation which made this time available, otherwise the next available would be mid July.) Will DC IVF, [facility] [employer]IST, Binder. Advance to regular diet. If he does well today, anticipate discharge tomorrow. Hospital Course Summary Disclaimer: The visit summary below is not to be considered part of the above Progress Note. Hospital Course: Impression Significant Intraoperative blood loss S/P Sigmoid Resection S/P- right partial nephrectomy related to renal Mass Adenocarcinoma Coronary artery disease Atrial fibrillation-chronic Hypertension Diabetes History of iron deficiency anemia Obesity Plan-07/06/17 Patient seen post-op in ICU. Medical consultation to hospitalist services for medical management of existing comorbidities. At this time, patient is in serious condition, however, stable on the ventilator. Artline is zeroed and blood pressures are evaluated at the bedside. Systolic blood pressures remain 150-165 systolic. Will stop norepinephrine drip and monitor carefully. He continues to be on normal saline, will finish current liter and then switched to D5 half-normal saline. He is at significant risk for fluid overload given the amount of IV fluids and blood products he received in the operating room. It does appear intraoperatively he did receive a one-time dose of 40 milligrams of IV Lasix. He may require further diuresis later on. Toradol and Lovenox are both contraindication at this time, given the need for renal preservation and recent bleeding Will continue to follow serial blood counts.CBC and Renal panel at 1800 today. Recheck ABG at this time. Check CBC, BMP, mg, ABG and Chest Xray tomorrow morning Monitor Accuchecks SCDs to bilateral lower extremity for DVT prophylaxis RLL-extubated in the evening, Bumex given for poor urine output. 07/07/17 Doing well, tolerating ice chips. No further respiratory distress or hypertension. Blood sugars modestly elevated-D5 discontinued, continue 1/2NS with KCl. Magnesium replaced IV earlier today. Heart rate slightly elevated-half dose atenolol resumed tonight with plans to resume normal dose in the morning. 07/10/17 Blood pressure stable, urine output trending down. Weight is up 3kg. He is a bit tachycardic. Will give one low-dose round of Lasix. Requiring minimal supplemental oxygen. Encourage activity. Check CXR in AM for stability. Awaiting recovery of bowel function. May need KUB for assessment. Toradol and Lovenox are both contraindication at this time given the need for renal preservation and recent blood loss. Renal function doing well, creatinine 0.9. Blood sugars improved, metformin remains on hold. Magnesium stable- repeat in am Hemoglobin dropping slowly after large-volume transfusion during surgery. Likely some hemodilution as well. Gentle diuresis today, repeat labs in AM. PPI changed to po administration, resume statin. Pathology confirmed adenocarcinoma of the colon-moderately differentiated, 08/11 lymph nodes positive; clear cell carcinoma of the right kidney. Wesley out. Voiding adequately. He does have repetitive mouth movements- unclear if this is baseline. I am going to DC the PRN reglan, though I don't see that he has gotten any of it. No other psychoactive meds on board that I appreciate. Monitor. Quite a few areas of fungal skin changes. Continue nystatin.
[2017-07-11] MEDS ORDERED: NEOMYCIN/POLYMYXIN/BACITRACIN OINT PACKET TP ONE (10:11)
[2017-07-11] MEDS: MAGNESIUM SULFATE 1gm PREMIX 1 GM/100 ML BAG IV SCH ×2 (11:55→13:04)
[2017-07-11] MEDS: NS FLUSH BAG 500ml IV PRN (11:56)
[2017-07-11] MEDS: 1/2 NS with KCL 20mEq 1,000 ML IV SCH (13:04)
--- NOTE | 2017-07-11 16:08 | Progress Note ---
- Date 07/11/17 Subjective: Mr. Jones had 2 bowel movements overnight. Diet was advanced and he tolerated regular food without nausea at lunchtime. He denies dyspnea and reports he's taking deeper breaths with less discomfort. He is ambulating without lightheadedness. He denied palpitations. He is voiding without difficulty and reports pain control is good. His advised me that they've tentatively been set up for follow-up appointment with Dr. Richardson later this week. Objective Vital signs: Temperature 96.2 F L 07/11/17 09:00 Pulse Rate 107 H 07/11/17 09:00 Respiratory Rate 16 07/11/17 09:00 Blood Pressure 118/67 07/11/17 09:00 Pulse Oximetry 95 07/11/17 09:00 NAD, alert Respirations nonlabored, good airflow, breath sounds clear anteriorly/ posteriorly Irregular rhythm, S1-S2, low-grade tachycardia Abdomen soft, nontender to light palpation, active bowel sounds Extremities without edema Rhythm: Atrial Fibrillation with RVR (Rate 100-110) Height/Weight/BMI: Height 1.83 m Weight 132.5 kg Body Mass Index 37.2 Results - Labs CBC & Chem 7: 07/11/17 04:19 07/11/17 04:19 Labs: Magnesium 1.5 Assessment and Plan (1) Hypotension Current visit: Yes Status: Acute Assessment and Plan: Impression Hypotension, resolved High-volume blood transfusion; intraoperative blood loss-8 u PRBC 07/06/17 S/P Sigmoid Resection for adenocarcinoma of the colon S/P- right partial nephrectomy related to renal mass, probable renal cell carcinoma Hypomagnesemia-07/07/17 Coronary artery disease Atrial fibrillation-chronic Hypertension Diabetes History of iron deficiency anemia Obesity Fungal dermatitis Plan Blood pressure stable, low-grade tachycardia on home dose atenolol area discussed briefly with Dr. Lux-will not adjust at this time but have patient follow-up as an outpatient. Urine output improved after single dose Lasix yesterday. Continue to monitor. IV fluids discontinued and diet advanced earlier today. Magnesium 1.5-supplemented IV earlier today. Do not anticipate ongoing problems with magnesium following discontinuation of fluids and diuretics. Microcytic anemia, reassess iron stores on blood in lab-anticipate discharging on oral iron supplement. Metformin remains on hold, blood sugars consistently under 200. Toradol and Lovenox are both contraindication at this time given the need for renal preservation and recent blood loss. Discussed with surgery-hope to discharge tomorrow. DVT Prophylaxis: SCD's GI Prophylaxis: Protonix Resuscitation Status: Full Code - Physician Narrative Narrative: Date: 07/11/17 Time: 1605 Hospital Course Summary Disclaimer: The visit summary below is not to be considered part of the above Progress Note. Hospital Course: Impression Significant Intraoperative blood loss S/P Sigmoid Resection S/P- right partial nephrectomy related to renal Mass Adenocarcinoma Coronary artery disease Atrial fibrillation-chronic Hypertension Diabetes History of iron deficiency anemia Obesity Plan-07/06/17 Patient seen post-op in ICU. Medical consultation to hospitalist services for medical management of existing comorbidities. At this time, patient is in serious condition, however, stable on the ventilator. Artline is zeroed and blood pressures are evaluated at the bedside. Systolic blood pressures remain 150-165 systolic. Will stop norepinephrine drip and monitor carefully. He continues to be on normal saline, will finish current liter and then switched to D5 half-normal saline. He is at significant risk for fluid overload given the amount of IV fluids and blood products he received in the operating room. It does appear intraoperatively he did receive a one-time dose of 40 milligrams of IV Lasix. He may require further diuresis later on. Toradol and Lovenox are both contraindication at this time, given the need for renal preservation and recent bleeding Will continue to follow serial blood counts.CBC and Renal panel at 1800 today. Recheck ABG at this time. Check CBC, BMP, mg, ABG and Chest Xray tomorrow morning Monitor Accuchecks SCDs to bilateral lower extremity for DVT prophylaxis RLL-extubated in the evening, Bumex given for poor urine output. 07/07/17 Doing well, tolerating ice chips. No further respiratory distress or hypertension. Blood sugars modestly elevated-D5 discontinued, continue 1/2NS with KCl. Magnesium replaced IV earlier today. Heart rate slightly elevated-half dose atenolol resumed tonight with plans to resume normal dose in the morning. 07/10/17 Blood pressure stable, urine output trending down. Weight is up 3kg. He is a bit tachycardic. Will give one low-dose round of Lasix. Requiring minimal supplemental oxygen. Encourage activity. Check CXR in AM for stability. Awaiting recovery of bowel function. May need KUB for assessment. Toradol and Lovenox are both contraindication at this time given the need for renal preservation and recent blood loss. Renal function doing well, creatinine 0.9. Blood sugars improved, metformin remains on hold. Magnesium stable- repeat in am Hemoglobin dropping slowly after large-volume transfusion during surgery. Likely some hemodilution as well. Gentle diuresis today, repeat labs in AM. PPI changed to po administration, resume statin. Pathology confirmed adenocarcinoma of the colon-moderately differentiated, 08/11 lymph nodes positive; clear cell carcinoma of the right kidney. Wesley out. Voiding adequately. He does have repetitive mouth movements- unclear if this is baseline. I am going to DC the PRN reglan, though I don't see that he has gotten any of it. No other psychoactive meds on board that I appreciate. Monitor. Quite a few areas of fungal skin changes. Continue nystatin.
[2017-07-11] MEDS: ATORVASTATIN 40 MG TABLET PO SCH (20:46)
[2017-07-12] MEDS: Oxycodone *IR* 5 MG TABLET PO PRN (00:32)
[2017-07-12] MEDS: PANTOPRAZOLE 40 MG TABLET PO SCH (05:38)
--- NOTE | 2017-07-12 07:08 | Progress Note ---
DATE 07/11/2017 POSTOP DAY #5 HISTORY The patient is out on the surgical unit. The patient is ambulating in the halls. The patient is tolerating a full liquid diet. The patient began having bowel movements in the last 24 hours. Diet has now been advanced up to a regular diet. PHYSICAL EXAMINATION VITAL SIGNS: Temperature is 96.2 degrees Fahrenheit oral. Pulse is 107. Respiratory rate is 16. Blood pressure is 118/67. Oxygen saturation is 95% on room air. ABDOMEN: The abdominal incision looks good. The Peyman-Baum drain sites at the abdomen look good. LABORATORY DATA White blood cell count is 7,700 with no bands. Hemoglobin is 10.9. Hematocrit is 33.2. Serum electrolytes are normal. Serum magnesium is 1.5 which is low. A creatinine level has been ordered for drainage from the Peyman-Baum drain from the peritoneal cavity, but results are still pending at this time. IMPRESSION Doing well following low anterior colon resection and partial nephrectomy on . PLAN 1. I agree with advancement of the diet to a regular diet at this time. 2. Continue to advance activity as tolerated. 3. Continue sequential compression devices for deep venous thrombosis prophylaxis. 4. Await creatinine level on output from Peyman-Baum drain to peritoneal cavity to help determine when it is safe to remove this Peyman-Baum drain to the peritoneal cavity. [facility]
[2017-07-12] MEDS: ATENOLOL 100 MG TABLET PO SCH (08:31)
[2017-07-12] MEDS ORDERED: METFORMIN 500 MG TABLET PO SCH (09:00)
--- NOTE | 2017-07-12 09:11 | General Surgery Progress Note ---
Subjective Patient reports: feels better, pain is less (minmal discomfort, ), tolerating a regular diet, voiding w/o difficulty, flatus, bowel movement, other (ambulating with walker and states he has a walker at home.) Narrative: He feels that he would do ok at home, but would like to wait for discharge till the roads clear a little more. 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 He is aware of the Jul [address] Richardson, a niece will accompany them to that appointment. Creatinine from abdominal ANTONIO was normal at 0.8. - Vital Signs Last Vital Signs Temp 97.9 F 07/12/17 08:00 Pulse 103 H 07/12/17 08:00 Resp 16 07/12/17 08:00 BP 129/66 07/12/17 08:00 Pulse Ox 96 07/12/17 08:00 - Laboratory Result Diagrams: 07/12/17 04:02 07/12/17 04:02 Laboratory Tests 07/08/17 07/09/17 07/10/17 04:17 04:04 03:52 Hgb 10.3 L D 9.9 L 9.5 L 07/11/17 07/12/17 04:19 04:02 Hgb 10.9 L D 10.6 L Laboratory Tests 07/11/17 12:13 Fluid Creatinine 0.8 - Pathology Sigmoid colon: Grade 2 moderately differentiated adenocarcinoma, with 3 of 22 positive regional lymph nodes. Small bowel nodule:metastatic modeately differentiated adenocarcinoma with features consistent with colon origin. 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 Staging : pT1a - Normal Exam General: awake, alert, oriented, no acute distress Cardiovascular: regular rhythm, regular rate Respiratory: clear bilaterally, no labored breathing Abdominal: soft, appropriately tender (midline), non-tender (with lateral palpation), incision(s) (CDI< viv in tact, still has dry eczema type rash on panus which is chronic), other (JPs with serosanginous fluid, the abdominal ANTONIO DC'd today, the ANTONIO in the subQ will remain till next week follow up appointment.) Psychiatric: normal affect Assessment and Plan (1) Adenocarcinoma of sigmoid colon Current Visit: Yes Status: Acute (2) Renal cell carcinoma Current Visit: Yes Status: Acute (3) H/O partial nephrectomy Current Visit: Yes Status: Acute (4) S/P colon resection Current Visit: Yes Status: Acute (5) Hypertension Current Visit: No Status: Acute (6) Obesity, morbid, BMI 40.0-49.9 Current Visit: No Status: Acute (7) Primary osteoarthritis of right hip Current Visit: No Status: Acute Plan: Pathology: Sigmoid colon: Grade 2 moderately differentiated adenocarcinoma, with 3 of 22 positive regional lymph nodes. Small bowel nodule:metastatic modeately differentiated adenocarcinoma with features consistent with colon origin. 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 Staging : pT1a Appointment set for Jul 14 with Dylan. He is eating regular diet, voiding without difficulty, Having small BM's, denies abd pain. Ambulating and getting in and out of bed without assistance. BGM's remain below 200 Metformin has not been restarted. VS and labs stable. Abdominal ANTONIO with normal level of creatinine, and DC'd this morning. SubQ Jlp remains in place to prevent seroma and plan on "pulling" that at next weeks follow up appointment. Plan on leaving viv in about 3 weeks due to morbid obesity. I visited with Dr. Lux this afternoon, he will see him 1-2 weeks post discharge for cardiac management and will coordinate with Dr. Sheriff if/when he can placed on anticoagulant therapy. Also visited with Dr. Mendoza and we both agree it would not hurt to have one more day of regular diet, and if no problems arise discharged tomorrow. Hospital Course Summary Disclaimer: The visit summary below is not to be considered part of the above Progress Note. Hospital Course: Impression Significant Intraoperative blood loss S/P Sigmoid Resection S/P- right partial nephrectomy related to renal Mass Adenocarcinoma Coronary artery disease Atrial fibrillation-chronic Hypertension Diabetes History of iron deficiency anemia Obesity Plan-07/06/17 Patient seen post-op in ICU. Medical consultation to hospitalist services for medical management of existing comorbidities. At this time, patient is in serious condition, however, stable on the ventilator. Artline is zeroed and blood pressures are evaluated at the bedside. Systolic blood pressures remain 150-165 systolic. Will stop norepinephrine drip and monitor carefully. He continues to be on normal saline, will finish current liter and then switched to D5 half-normal saline. He is at significant risk for fluid overload given the amount of IV fluids and blood products he received in the operating room. It does appear intraoperatively he did receive a one-time dose of 40 milligrams of IV Lasix. He may require further diuresis later on. Toradol and Lovenox are both contraindication at this time, given the need for renal preservation and recent bleeding Will continue to follow serial blood counts.CBC and Renal panel at 1800 today. Recheck ABG at this time. Check CBC, BMP, mg, ABG and Chest Xray tomorrow morning Monitor Accuchecks SCDs to bilateral lower extremity for DVT prophylaxis RLL-extubated in the evening, Bumex given for poor urine output. 07/07/17 Doing well, tolerating ice chips. No further respiratory distress or hypertension. Blood sugars modestly elevated-D5 discontinued, continue 1/2NS with KCl. Magnesium replaced IV earlier today. Heart rate slightly elevated-half dose atenolol resumed tonight with plans to resume normal dose in the morning. 07/10/17 Blood pressure stable, urine output trending down. Weight is up 3kg. He is a bit tachycardic. Will give one low-dose round of Lasix. Requiring minimal supplemental oxygen. Encourage activity. Check CXR in AM for stability. Awaiting recovery of bowel function. May need KUB for assessment. Toradol and Lovenox are both contraindication at this time given the need for renal preservation and recent blood loss. Renal function doing well, creatinine 0.9. Blood sugars improved, metformin remains on hold. Magnesium stable- repeat in am Hemoglobin dropping slowly after large-volume transfusion during surgery. Likely some hemodilution as well. Gentle diuresis today, repeat labs in AM. PPI changed to po administration, resume statin. Pathology confirmed adenocarcinoma of the colon-moderately differentiated, 08/11 lymph nodes positive; clear cell carcinoma of the right kidney. Wesley out. Voiding adequately. He does have repetitive mouth movements- unclear if this is baseline. I am going to DC the PRN reglan, though I don't see that he has gotten any of it. No other psychoactive meds on board that I appreciate. Monitor. Quite a few areas of fungal skin changes. Continue nystatin. 07/11 Hospitalist note: Blood pressure stable, low-grade tachycardia on home dose atenolol area discussed briefly with Dr. Lux-will not adjust at this time but have patient follow-up as an outpatient. Urine output improved after single dose Lasix yesterday. Continue to monitor. IV fluids discontinued and diet advanced earlier today. Magnesium 1.5-supplemented IV earlier today. Do not anticipate ongoing problems with magnesium following discontinuation of fluids and diuretics. Microcytic anemia, reassess iron stores on blood in lab-anticipate discharging on oral iron supplement. Metformin remains on hold, blood sugars consistently under 200. Toradol and Lovenox are both contraindication at this time given the need for renal preservation and recent blood loss. Discussed with surgery-hope to discharge tomorrow. Pathology: Sigmoid colon: Grade 2 moderately differentiated adenocarcinoma, with 3 of 22 positive regional lymph nodes. Small bowel nodule:metastatic modeately differentiated adenocarcinoma with features consistent with colon origin. 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 Staging : pT1a 07/12 Appointment set for Jul 14 with Dylan. He is eating regular diet, voiding without difficulty, Having small BM's, denies abd pain. Ambulating and getting in and out of bed without assistance. BGM's remain below 200 Metformin has not been restarted. VS and labs stable. Abdominal ANTONIO with normal level of creatinine, and DC'd this morning. SubQ Jlp remains in place to prevent seroma and plan on "pulling" that at next weeks follow up appointment. Plan on leaving [facility] in about 3 weeks due to morbid obesity. I visited with Dr. Lux this afternoon, he will see him 1-2 weeks post discharge for cardiac management and will coordinate with Dr. Sheriff if/when he can placed on anticoagulant therapy. Also visited with Dr. Mendoza and we both agree it would not hurt to have one more day of regular diet, and if no problems arise discharged tomorrow.
--- NOTE | 2017-07-12 10:58 | Progress Note ---
- Date 07/12/17 Subjective: Patient is seen today sitting up in his room. He reports he feels well. He is eating a regular diet and has had a bowel movement and is passing flatus. He has been up walking. He feels ready to go home today. Minimal pain. Objective Vital signs: Temperature 97.9 F 07/12/17 08:00 Pulse Rate 103 H 07/12/17 08:00 Respiratory Rate 16 07/12/17 08:00 Blood Pressure 129/66 07/12/17 08:00 Pulse Oximetry 96 07/12/17 08:00 Rhythm: Atrial Fibrillation with RVR (Rate 100-110) Height/Weight/BMI: Height 1.83 m Weight 129.2 kg Body Mass Index 37.2 - Constitutional Present: no acute distress, well nourished, well developed - Routine HEENT Exam Head: Present: normocephalic, atraumatic - Routine Respiratory Exam Present: CTA bilaterally. Absent: wheezes - Routine Cardiovascular Exam Present: RRR, irregularly irregular - Routine Abdominal Exam Present: soft, non distended. Absent: guarding, firm Comments: 2 drains intact, draining slightly bloody, serosanguineous fluid. [place] intact with no sign of infection incision. - Routine Extremities Exam Present: no edema, normal capillary refill - Routine Skin Exam Present: dry, warm - Routine Neurological Exam Present: alert, oriented X3 - Routine Lymphatic Exam Lymphatic: Absent: adenopathy - Routine Psychiatric Exam Present: normal affect, cooperative Results - Labs CBC & Chem 7: 07/12/17 04:02 07/12/17 04:02 Assessment and Plan (1) Hypotension Current visit: Yes Status: Acute Assessment and Plan: Impression Hypotension, resolved High-volume blood transfusion; intraoperative blood loss-8 u PRBC 07/06/17 S/P Sigmoid Resection for adenocarcinoma of the colon S/P- right partial nephrectomy related to renal mass, probable renal cell carcinoma Hypomagnesemia-07/07/17 Coronary artery disease Atrial fibrillation-chronic Hypertension Diabetes History of iron deficiency anemia Obesity Fungal dermatitis Plan Blood pressure stable, low-grade tachycardia on home dose atenolol. Dr. Goel discussed with Dr. Lux-will not adjust at this time but have patient follow-up as an outpatient. Microcytic anemia, iron studies are pending. This can be followed up on an outpatient basis with PCP. Metformin remains on hold, blood sugars consistently under 200. He may resume this on discharge assuming he returns to his normal diet at home. Stable for discharge from a medical standpoint. - Physician Narrative Physician: other (Dr. Jones) Narrative: Date: 07/12/17 Time: 11:20 I have independently evaluated and examined this patient. I reviewed the chart, the patient's history, and the GUT DROPPER/PA's documented findings as above. We discussed and formulated the assessment and plan as above with additions as below: Patient is feeling well today. No significant events overnight. He would like to go home today but is concerned about his driving in the ice. He has been up walking, using the restroom without difficulty. Denies any complaints. GEN-NAD, pleasant ABD-soft, +BS EXT- no edema, moves all Plan: Patient is planning on discharge today pending the weather and his 's ability to pick him up. Iron studies to be run 07/13. Plans for follow up with Dr. Richardson at the end of the week. Hospital Course Summary Disclaimer: The visit summary below is not to be considered part of the above Progress Note. Hospital Course: Impression Significant Intraoperative blood loss S/P Sigmoid Resection S/P- right partial nephrectomy related to renal Mass Adenocarcinoma Coronary artery disease Atrial fibrillation-chronic Hypertension Diabetes History of iron deficiency anemia Obesity Plan-07/06/17 Patient seen post-op in ICU. Medical consultation to hospitalist services for medical management of existing comorbidities. At this time, patient is in serious condition, however, stable on the ventilator. Artline is zeroed and blood pressures are evaluated at the bedside. Systolic blood pressures remain 150-165 systolic. Will stop norepinephrine drip and monitor carefully. He continues to be on normal saline, will finish current liter and then switched to D5 half-normal saline. He is at significant risk for fluid overload given the amount of IV fluids and blood products he received in the operating room. It does appear intraoperatively he did receive a one-time dose of 40 milligrams of IV Lasix. He may require further diuresis later on. Toradol and Lovenox are both contraindication at this time, given the need for renal preservation and recent bleeding Will continue to follow serial blood counts.CBC and Renal panel at 1800 today. Recheck ABG at this time. Check CBC, BMP, mg, ABG and Chest Xray tomorrow morning Monitor Accuchecks SCDs to bilateral lower extremity for DVT prophylaxis RLL-extubated in the evening, Bumex given for poor urine output. 07/07/17 Doing well, tolerating ice chips. No further respiratory distress or hypertension. Blood sugars modestly elevated-D5 discontinued, continue 1/2NS with KCl. Magnesium replaced IV earlier today. Heart rate slightly elevated-half dose atenolol resumed tonight with plans to resume normal dose in the morning. 07/10/17 Blood pressure stable, urine output trending down. Weight is up 3kg. He is a bit tachycardic. Will give one low-dose round of Lasix. Requiring minimal supplemental oxygen. Encourage activity. Check CXR in AM for stability. Awaiting recovery of bowel function. May need KUB for assessment. Toradol and Lovenox are both contraindication at this time given the need for renal preservation and recent blood loss. Renal function doing well, creatinine 0.9. Blood sugars improved, metformin remains on hold. Magnesium stable- repeat in am Hemoglobin dropping slowly after large-volume transfusion during surgery. Likely some hemodilution as well. Gentle diuresis today, repeat labs in AM. PPI changed to po administration, resume statin. Pathology confirmed adenocarcinoma of the colon-moderately differentiated, 08/11 lymph nodes positive; clear cell carcinoma of the right kidney. Wesley out. Voiding adequately. He does have repetitive mouth movements- unclear if this is baseline. I am going to DC the PRN reglan, though I don't see that he has gotten any of it. No other psychoactive meds on board that I appreciate. Monitor. Quite a few areas of fungal skin changes. Continue nystatin. 07/11 Hospitalist note: Blood pressure stable, low-grade tachycardia on home dose atenolol area discussed briefly with Dr. Lux-will not adjust at this time but have patient follow-up as an outpatient. Urine output improved after single dose Lasix yesterday. Continue to monitor. IV fluids discontinued and diet advanced earlier today. Magnesium 1.5-supplemented IV earlier today. Do not anticipate ongoing problems with magnesium following discontinuation of fluids and diuretics. Microcytic anemia, reassess iron stores on blood in lab-anticipate discharging on oral iron supplement. Metformin remains on hold, blood sugars consistently under 200. Toradol and Lovenox are both contraindication at this time given the need for renal preservation and recent blood loss. Discussed with surgery-hope to discharge tomorrow. Pathology: Sigmoid colon: Grade 2 moderately differentiated adenocarcinoma, with 3 of 22 positive regional lymph nodes. Small bowel nodule:metastatic modeately differentiated adenocarcinoma with features consistent with colon origin. 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 Staging : pT1a 07/12 surgical note Appointment set for Jul 14 with Dylan. He is eating regular diet, voiding without difficulty, Having small BM's, denies abd pain. Ambulating and getting in and out of bed without assistance. BGM's remain below 200 Metformin has not been restarted. VS and labs stable. Abdominal ANTONIO with normal level of creatinine, and DC'd this morning. SubQ Jlp remains in place to prevent seroma and plan on "pulling" that at next weeks follow up appointment. Plan on leaving [facility] in about 3 weeks due to morbid obesity. 07/12/17-hospitalist note: Blood pressure stable, low-grade tachycardia on home dose atenolol. Dr. Goel discussed with Dr. Lux-will not adjust at this time but have patient follow-up as an outpatient. Microcytic anemia, iron studies are pending. This can be followed up on an outpatient basis with PCP. Metformin remains on hold, blood sugars consistently under 200. He may resume this on discharge assuming he returns to his normal diet at home. Stable for discharge from a medical standpoint.
--- NOTE | 2017-07-12 14:41 | Progress Note ---
DATE: 07/12/2017 POSTOP DAY #6 HISTORY The patient is tolerating a regular diet. The patient had two bowel movements so far today. He is ambulating in the halls. The fluid creatinine level on fluid in the Peyman-Baum drain to the peritoneal cavity was 0.8 yesterday. Bob Pete APRN, did remove the Peyman-Baum drain to the peritoneal cavity today. PHYSICAL EXAMINATION VITAL SIGNS: Temperature is 98 degrees Fahrenheit oral. Pulse is 101. Respiratory rate is 20. Blood pressure is 110/67. Oxygen saturation is 95% on room air. ABDOMEN: The abdominal incision looks good. The remaining Peyman-Baum drain site looks good.. LABORATORY DATA White blood cell count is 6700 with no bands. Hemoglobin is 10.6. Hematocrit is 32.1. Serum sodium is 140. Serum potassium is 4.2. Serum creatinine is 0.9. IMPRESSION Doing well following low anterior colon resection and partial nephrectomy on . PLAN 1. Continue to advance activity as tolerated. 2. Continue sequential compression devices for deep venous thrombosis prophylaxis. [facility]
[2017-07-12 19:46] VITALS: RESP 18
[2017-07-12] MEDS: ATORVASTATIN 40 MG TABLET PO SCH (21:08)
[2017-07-13] MEDS: PANTOPRAZOLE 40 MG TABLET PO SCH (06:28)
--- NOTE | 2017-07-13 09:13 | General Surgery Progress Note ---
Subjective Patient reports: no new complaints, tolerating a regular diet, voiding w/o difficulty, bowel movement, afebrile Narrative: ambulating without difficulty. Denies chest pain, SOA. He would like to get home this morning. Appointments with Dr. Sheriff and Dr. Lux and Dr. Anderson are pending, nursing will call for those dates and times. He has appointment with Dr. Richardson tomorrow at 12:30 and nh on July 22 for drain removal, and July [address] Porras for post op cancer visit. Discharge instructions and care discussed with patient and , questions answered. He will continue all his home meds for now, except 1/2 the Metformin dose since fasting glucose has been in the 120's. He has a glucometer at home and does take his BGM and will increase to his pre surgery dose if BGM's go up. Rx for oxidocone IR written, although he has not been needing much of this. Miralax for constipation. - Vital Signs Last Vital Signs Temp 97.6 F 07/13/17 07:26 Pulse 104 H 07/13/17 07:26 Resp 18 07/13/17 07:26 BP 118/69 07/13/17 07:26 Pulse Ox 96 07/13/17 07:26 - Laboratory Result Diagrams: 07/13/17 04:16 07/13/17 04:16 - Normal Exam General: awake, alert, oriented, no acute distress Cardiovascular: regular rhythm, regular rate Respiratory: clear bilaterally, no labored breathing Abdominal: soft, non-tender, incision(s) (CDI, the chronic dry rash on the panus is unchanged) Assessment and Plan (1) Adenocarcinoma of sigmoid colon Current Visit: Yes Status: Acute (2) Renal cell carcinoma Current Visit: Yes Status: Acute (3) H/O partial nephrectomy Current Visit: Yes Status: Acute (4) S/P colon resection Current Visit: Yes Status: Acute (5) Hypertension Current Visit: No Status: Acute (6) Obesity, morbid, BMI 40.0-49.9 Current Visit: No Status: Acute (7) Primary osteoarthritis of right hip Current Visit: No Status: Acute Plan: He is doing well surgically, eating, having BMs', ambulating and voiding without difficulty. We discussed appointments and discharge activity. DC to home today. See discharge orders Hospital Course Summary Disclaimer: The visit summary below is not to be considered part of the above Progress Note. Hospital Course: Impression Significant Intraoperative blood loss S/P Sigmoid Resection S/P- right partial nephrectomy related to renal Mass Adenocarcinoma Coronary artery disease Atrial fibrillation-chronic Hypertension Diabetes History of iron deficiency anemia Obesity Plan-07/06/17 Patient seen post-op in ICU. Medical consultation to hospitalist services for medical management of existing comorbidities. At this time, patient is in serious condition, however, stable on the ventilator. Artline is zeroed and blood pressures are evaluated at the bedside. Systolic blood pressures remain 150-165 systolic. Will stop norepinephrine drip and monitor carefully. He continues to be on normal saline, will finish current liter and then switched to D5 half-normal saline. He is at significant risk for fluid overload given the amount of IV fluids and blood products he received in the operating room. It does appear intraoperatively he did receive a one-time dose of 40 milligrams of IV Lasix. He may require further diuresis later on. Toradol and Lovenox are both contraindication at this time, given the need for renal preservation and recent bleeding Will continue to follow serial blood counts.CBC and Renal panel at 1800 today. Recheck ABG at this time. Check CBC, BMP, mg, ABG and Chest Xray tomorrow morning Monitor Accuchecks SCDs to bilateral lower extremity for DVT prophylaxis RLL-extubated in the evening, Bumex given for poor urine output. 07/07/17 Doing well, tolerating ice chips. No further respiratory distress or hypertension. Blood sugars modestly elevated-D5 discontinued, continue 1/2NS with KCl. Magnesium replaced IV earlier today. Heart rate slightly elevated-half dose atenolol resumed tonight with plans to resume normal dose in the morning. 07/10/17 Blood pressure stable, urine output trending down. Weight is up 3kg. He is a bit tachycardic. Will give one low-dose round of Lasix. Requiring minimal supplemental oxygen. Encourage activity. Check CXR in AM for stability. Awaiting recovery of bowel function. May need KUB for assessment. Toradol and Lovenox are both contraindication at this time given the need for renal preservation and recent blood loss. Renal function doing well, creatinine 0.9. Blood sugars improved, metformin remains on hold. Magnesium stable- repeat in am Hemoglobin dropping slowly after large-volume transfusion during surgery. Likely some hemodilution as well. Gentle diuresis today, repeat labs in AM. PPI changed to po administration, resume statin. Pathology confirmed adenocarcinoma of the colon-moderately differentiated, 3/22 lymph nodes positive; clear cell carcinoma of the right kidney. Wesley out. Voiding adequately. He does have repetitive mouth movements- unclear if this is baseline. I am going to DC the PRN reglan, though I don't see that he has gotten any of it. No other psychoactive meds on board that I appreciate. Monitor. Quite a few areas of fungal skin changes. Continue nystatin. 07/11 Hospitalist note: Blood pressure stable, low-grade tachycardia on home dose atenolol area discussed briefly with Dr. Lux-will not adjust at this time but have patient follow-up as an outpatient. Urine output improved after single dose Lasix yesterday. Continue to monitor. IV fluids discontinued and diet advanced earlier today. Magnesium 1.5-supplemented IV earlier today. Do not anticipate ongoing problems with magnesium following discontinuation of fluids and diuretics. Microcytic anemia, reassess iron stores on blood in lab-anticipate discharging on oral iron supplement. Metformin remains on hold, blood sugars consistently under 200. Toradol and Lovenox are both contraindication at this time given the need for renal preservation and recent blood loss. Discussed with surgery-hope to discharge tomorrow. Pathology: Sigmoid colon: Grade 2 moderately differentiated adenocarcinoma, with 3 of 22 positive regional lymph nodes. Small bowel nodule:metastatic modeately differentiated adenocarcinoma with features consistent with colon origin. 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 Staging : pT1a 07/12 Appointment set for Jul 14 with Dylan. He is eating regular diet, voiding without difficulty, Having small BM's, denies abd pain. Ambulating and getting in and out of bed without assistance. BGM's remain below 200 Metformin has not been restarted. VS and labs stable. Abdominal ANTONIO with normal level of creatinine, and DC'd this morning. SubQ Jlp remains in place to prevent seroma and plan on "pulling" that at next weeks follow up appointment. Plan on leaving [facility] in about 3 weeks due to morbid obesity. I visited with Dr. Lux this afternoon, he will see him 1-2 weeks post discharge for cardiac management and will coordinate with Dr. Sheriff if/when he can placed on anticoagulant therapy. Also visited with Dr. Mendoza and we both agree it would not hurt to have one more day of regular diet, and if no problems arise discharged tomorrow. 07/13 He is doing well surgically, eating, having BMs', ambulating and voiding without difficulty. We discussed appointments and discharge activity. DC to home today. See discharge orders
[2017-07-13] MEDS: ATENOLOL 100 MG TABLET PO SCH (09:42)
[2017-07-13 12:24] VITALS: BP 123/66; PULSE 94; TEMP 96.9; O2SAT 98
== END 2017-07-13 13:32 | disposition home or self-care (01) | DRG 330 ==
LOC: NMC.PERIOP 07-06 05:52 → CCU 07-06 13:49 → SRG 07-09 15:28
PROVIDERS: ADMIT Surgery; ATTEND Surgery

== ENCOUNTER 2017-09-08 08:52 | Observation (INO) ==
[2017-09-08] MEDS: SALINE FLUSH 10ml SYRINGE IVF PRN ×2 (09:46→11:42)
--- NOTE | 2017-09-08 10:10 | Emergency Department Report ---
Skin/Abscess/FB HPI - General Chief complaint: Skin/Abscess/Foreign Body Stated complaint: sores on both feet Time Seen by Provider: 09/08/17 09:23 - History of Present Illness HPI narrative: 67-year-old male presents with blistering on right first toe. He is currently undergoing chemotherapy for colon cancer. Is on his second cycle of Folfox. He was started on both clindamycin and a Medrol Dosepak on 09/06 due to a rash and lateral feet and lower back. He feels like the rash has progressed. He does have mild pain in the foot with blistering. Contacted his oncologist and was told to come to ED for evaluation. Denies any fever this time. No nausea or vomiting. No shortness of breath. - Related Data Home Medications Medication Instructions Recorded Confirmed Atorvastatin [Lipitor] 40 mg PO HS 04/27/17 09/08/17 Aspirin 325 mg PO DAILY 08/10/17 09/08/17 Atenolol [Tenormin] 100 mg PO DAILY 08/10/17 09/08/17 Acetaminophen [Tylenol] 500 mg PO Q5H PRN 09/08/17 09/08/17 Clindamycin [Cleocin] 300 mg PO TID 09/08/17 09/08/17 Doxycycline [Vibramycin] 100 mg PO BID 09/08/17 09/08/17 Lisinopril [Prinivil] 20 mg PO DAILY 09/08/17 09/08/17 Oxycodone/Acetaminophen 5/325 1 tab PO TID PRN 09/08/17 09/08/17 [Percocet 5/325] methylPREDNISolone 4 mg PO . DIRECTED 09/08/17 09/08/17 [Methylprednisolone] Allergies Allergy/AdvReac Type Severity Reaction Status Date / Time Penicillins Allergy Unknown unknown Verified 09/08/17 09:03 Review of Systems All systems: reviewed and negative except as stated PFSH Patient Stated Medical History Cardiac Arrhythmia Yes: AFIB PER H&P Coronary Artery Disease Yes: PER H&P LAD 90% stenosis EF 60% Hypertension Yes Hypotension Yes Myocardial Infarction No Pneumonia Yes: Hx Sleep Apnea Yes Diabetes Mellitus Type 1 No Diabetes Mellitus Type 2 Yes Other GI Yes: COLON CANCER Hx Renal Disease Yes: RENAL CELL CARCINOMA Other Yes: hx renal cancer Anemia Yes: Hx- 'lightly' per pt Osteoarthritis Yes Other Musculoskeletal Yes: Hip discomfort-right/right knee discomfort Other Yes: POWER PORT PLACEMENT [facility] Medical History (Last Reviewed 08/03/17 @ 14:49 by DAYANA Sanchez) Colon cancer (Acute Medical 06/20/17) Obesity (Acute Medical) CAD in [place] artery (Chronic Medical) Diabetes (Chronic Medical) HTN (hypertension) (Chronic Medical) Surgical History: Colonoscopy adenocarcinoma rectum 06/20/2017. Low anterior resection-07/06/17- [facility]. Partial right nephrectomy-07/06/17- Dr. Sheriff. Power Port -08/11/2017. Cholecystectomy 2012- [facility]. Cardiac catheterization EF 60%, diatal LAD 90% stenosis Jose J Family History: Family History (Last Reviewed 08/03/17 @ 14:49 by DAYANA Sanchez) Mother , age 83 Diabetes High blood pressure Heart attack Brother Diabetes High blood pressure Heart attack Stroke Sister Diabetes Heart attack High blood pressure Stroke Family History Updates: Mother , age 83. Diabetes. HTN ( hypertension). Heart attack. Brother. Diabetes. HTN (hypertension). Heart attack. Stroke. Sister. Diabetes. Heart attack. HTN (hypertension). Stroke - Social History Smoking status: Former smoker second hand exposure: No Substance use type: does not use Alcohol intake frequency: does not drink Housing: house Household members: spouse Current occupational status: retired Does patient use chewing tobacco?: No Current residence: Apartment/Private Home Physical Exam - Limitations Limitations: no limitations - General General appearance: alert - Normal Exams: Head:: Normocephalic without trauma Chest/Respirations:: Clear all [place], with good airflow, and symmetry bilaterally Cardiovascular:: Regular rate and rhythm, without murmur or gallop, Pulses 2+ all extremities, capillary refill, <2 seconds all extremities Abdomen:: Bowel sounds positive Neurological:: Patient is alert, and oriented, cranial nerves, motor/sensory/ cerebellar, exams w/o gross deficits, to observation Psychiatric:: Patient exhibits, appropriate attention, emotion and affect - Expanded Lower Extremity Exam right Foot/toe exam: Present: other (right first toe shows multiple small clear fluid- filled vesicles/blisters. Skin itself is red with very angry rash extending along dorsum of foot and onto lower calf. Rashes present on both feet.) Course Vital Signs Temperature 97.6 F 09/08/17 09:03 Pulse Rate 111 H 09/08/17 09:03 Respiratory Rate 19 09/08/17 09:03 Blood Pressure 159/94 H 09/08/17 09:03 Pulse Oximetry 96 09/08/17 09:03 Temperature 97.6 F 09/08/17 09:03 Pulse Rate 111 H 09/08/17 09:03 Respiratory Rate 19 09/08/17 09:03 Blood Pressure 159/94 H 09/08/17 09:03 Pulse Oximetry 96 09/08/17 09:03 Skin/Abscess/Foreign Body - Lab Data Result diagrams: 09/08/17 09:41 09/08/17 09:45 Lab Results 09/08/17 09/08/17 Range/Units 09:41 09:45 WBC 4.5 (4.5-11.0) T/MM3 RBC 4.42 L (4.50-5.90) M/MM3 Hgb 11.3 L (13.5-17.5) GM/DL Hct 34.4 L (41-53) % MCV 77.8 L (80-100) UM3 MCH 25.6 L (26-34) UUG MCHC 32.8 (31-37) GM/DL RDW Std Deviation 41.4 (36.9-50.2) FL Plt Count 179 (130-400) T/MM3 MPV 9.5 (9.4-12.4) UM3 Immature Gran % (Auto) 0.0 (0.0-0.5) % Neut % (Auto) 70.6 H (33-66) % Lymph % (Auto) 21.5 L (23-45) % Rice % (Auto) 7.3 (0-9.0) % Eos % (Auto) 0.4 (0-4) % Baso % (Auto) 0.2 (0-2) % Neut # (Auto) 3.2 (1.8-7.7) T/MM3 Lymph # (Auto) 1.0 (1-4.8) T/MM3 Rice # (Auto) 0.3 (0-0.8) T/MM3 Eos # (Auto) 0.0 (0-0.5) T/MM3 Baso # (Auto) 0.0 (0-0.2) T/MM3 Abs Immat Gran (auto) 0.00 (0.00-0.03) T/MM3 Turbidity < 20 (0-20) Sodium 145 H (134-144) MEQ/L Potassium 4.2 (3.6-5) MEQ/L Chloride 106 (98-107) MEQ/L Carbon Dioxide 26 (22-30) MEQ/L Anion Gap 13 (5-15) meq/L BUN 18.0 (9-20) MG/DL Creatinine 0.6 L (0.8-1.5) mg/dL GFR Calculation 135 BUN/Creatinine Ratio 30 H (6-26) RATIO Glucose 168 H (75-110) MG/DL Calculated Osmolality 285 H (261-280) MOSM/KG Calcium 9.3 (8.4-10.2) MG/DL Total Bilirubin 0.40 (0.20-1.30) MG/DL Conjugated Bilirubin 0.00 (0.00-0.30) mg/dL Unconjugated Bilirubin 0.10 (0.00-1.1) mg/dL Icterus Index < 2 (0-7) AST 18 (17-59) U/L ALT 18 (1-50) U/L Alkaline Phosphatase 93 (38-126) U/L Total Protein 6.5 (6.3-8.2) g/dL Albumin 3.8 (3.5-5.0) g/dL Globulin 2.7 (2.4-3.6) G/DL Albumin/Globulin Ratio 1.4 (1.1-2.2) RATIO Plasma Lactate 2.6 H (0.6-2.2) MMOL/L Specimen Hemolysis < 15 (0-25) Disposition Prescriptions: No Action Atorvastatin [Lipitor] 40 mg PO HS Aspirin 325 mg PO DAILY Acetaminophen [Tylenol] 500 mg PO Q5H PRN PRN Reason: Pain Oxycodone/Acetaminophen 5/325 [Percocet 5/325] 1 tab PO TID PRN PRN Reason: Pain methylPREDNISolone [Methylprednisolone] 4 mg PO . DIRECTED Lisinopril [Prinivil] 20 mg PO DAILY Doxycycline [Vibramycin] 100 mg PO BID Clindamycin [Cleocin] 300 mg PO TID Atenolol [Tenormin] 100 mg PO DAILY Referrals: Brandon Mejia MD [Primary Care Provider] -
[2017-09-08] MEDS ORDERED: SALINE FLUSH 10ml SYRINGE IVF PRN (11:22)
[2017-09-08] MEDS ORDERED: NS 1,000 ML IV SCH (11:30)
[2017-09-08 12:19] VITALS: TEMP 97.7
[2017-09-08] MEDS ORDERED: ACETAMINOPHEN 325 MG TABLET PO PRN (12:54)
[2017-09-08] MEDS ORDERED: ONDANSETRON 4 MG/2 ML INJECTION IVP PRN (12:54)
[2017-09-08] MEDS ORDERED: HYDROCODONE/APAP 5mg/325mg TABLET PO PRN (12:54)
[2017-09-08] MEDS ORDERED: SENNA + DOCUSATE TABLET PO PRN (12:54)
[2017-09-08] MEDS ORDERED: Oxycodone/Acetaminophen 5/325 1 TAB PO PRN (12:57)
--- NOTE | 2017-09-08 13:35 | History & Physical Report ---
History of Present Illness Date: 09/08/17 Chief complaint: Drug reaction to skin/feet HPI: Shaun Jones is a 67 -year-old male who has been under the primary care of Dr. Mejia. He underwent a screening colonoscopy due to Hemoccult positive stools on 06/20/17 that unfortunately revealed invasive moderate differential colonic adenocarcinoma. Upon further radiologic studies at that time, he was found to also have a mass in the right kidney which was found to be clear cell renal cell carcinoma as well as numerous lymph nodes in the sigmoid mesentery and retroperitoneal adenopathy with increased concern for metastatic disease. He underwent open sigmoid resection and lower anterior resection by Dr. Porras along with right open partial nephrectomy by Dr. Sheriff on 07/06/17. Postoperatively, he required a total of 8 units of packed irradiated, leuko- reduced red blood cells along with FFP and cryo-infusion due to acute blood loss. His was discharged home on 08/10. He established care with Dr. Richardson, oncology, on 08/11/17 and had a power port placed that same day. He underwent his first treatment on 08/17/17 including Flofox (oxaliplatin wiht 5FU and folinic acid). He reports that that evening after his treatment, he developed chest pain and was seen in the ED at [facility] [place]. Evaluation including labs, EKG and imaging at that time were unremarkable and his chest pain had resolved without treatment. He was discharged home without further incident. He has known CAD with recent heart cath on 03/2017 revealing 90% stenosis at the distal LAD and 80-90% at the first diagonal branch with the proximal LAD exhibited 30-40% stenosis. At that time, he was in a-fib with normal LV function with an EF of 60%. It was determined that he would best be treated medically without anticoagulation given his iron deficiency anemia and previously Hemoccult positive stools which ultimately revealed colon cancer. On 08/30/17, he underwent his 2nd round of chemotherapy including the Flofox with the new addition of Vectibix. On 09/02/17, he noticed a "rash" with erythema and pain to the soles of his feet and was started on Doxycycline per Dr. Richardson. On 09/03/17 his feet began to burn with increasing pain and new formation of blisters on the toes and lateral side of the foot. He also reported blistering in a circular formation at the top of his sacrum and spreading erythema along this back and trunk. Dr. Richardson recommended continuation of the Doxycycline with the addition of clindamycin on 09/06/17. Due to the progression of the rash and increasing in discomfort, Dr. Richardson recommended evaluation in the ED. Other than the rash and the pain from the rash, Shaun denies any fevers, chills, cough, congestion, chest pain, shortness of breath, abdominal pain, nausea, vomiting or dysuria. His appetite has been stable and bowels are moving well without noted blood. Upon arrival to the ED, labs were obtained and relatively unremarkable with the exception of stable anemia (Hgb 11.3), mild hypernatremia (Na 145) and hyperglycemia (Glu 168 ). Lactate was noted to be elevated at 2.[address] Giraldo was consulted and he was accepted to observation status for further evaluation and treatment due to concern for possible cellulitis and outpatient therapy failure. His length of stay is no expected to exceed more than 2 over nights. Review of Systems All systems PM: 10-point ROS was reviewed, no additional remarkable complaints except - Constitutional Constitutional: Absent: chills, fatigue, fever(s), lethargy, malaise, weakness - EENMT Eyes: Absent: change in vision, loss of vision, photophobia Ears: Absent: ear pain Balance: Absent: falling to one side Nose: Absent: nosebleeds Mouth/Throat: Absent: sore throat, changes in swallowing, dry mouth EENMT Comments: Missing teeth. - Cardiovascular Cardiovascular: Absent: chest pain, palpitations, syncope, dyspnea on exertion, orthopnea, edema Rhythm: Present: regular rhythm Vascular: Absent: pallor of an extermity, pedal edema - Respiratory Respiratory: Absent: cough, dyspnea, hemoptysis, dyspnea on exertion, wheezing, pain on inspiration - Gastrointestinal Gastrointestinal: Absent: abdominal pain, constipation, diarrhea, dysphagia, hematochezia, melena, nausea, vomiting - Genitourinary Genitourinary: Absent: difficulty urinating, dysuria, flank pain, hematuria - Musculoskeletal Musculoskeletal: Absent: deformity, limited range of motion, muscle weakness - Integumentary/Breasts Integumentary: Present: erythema, lesions, rash (trunk, feet) - Neurological Neurological: Absent: abnormal gait, abnormal speech, confusion, dizziness, focal weakness, weakness - Psychiatric Psychiatric: Absent: anxiety, depression - Endocrine Endocrine: Absent: heat intolerance, palpitations - Hematologic/Lymphatic Hematologic/Lymphatic: Absent: easy bruising - Allergic/Immunologic Allergic/Immunologic: Absent: seasonal rhinorrhea Past Medical History Medical History Updates: CAD. A-fib. Diabetes mellitus, type 2. Hypertension. Hyperlipidemia. Obesity - BMI 37. Chronic anemia. 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 Surgical History: Colonoscopy adenocarcinoma rectum - 06/20/2017, Dr. Porras. Low anterior colon resection - 07/06/17; Partial right nephrectomy - 07/06/17; Dr. Sheriff. Power Port placement -08/11/2017. Cholecystectomy - 2012; Cardiac catheterization (EF 60%, diatal LAD 90% stenosis) - 03/2017; Dr. Lux. Family History: Family History Mother , age 83 Diabetes High blood pressure Heart attack Brother Diabetes High blood pressure Heart attack Stroke Sister Diabetes Heart attack High blood pressure Stroke Family History: As Above - Social History Smoking status: Former smoker (quit ~1974) Substance use type: does not use Alcohol intake frequency: does not drink Housing: house Household members: spouse Current occupational status: retired Does patient use chewing tobacco?: No Current residence: Apartment/Private Home Social history: PCP - Dr. Garcia. Cardio - Dr. Lux. Onc - Dr. Richardson. Medications Home Medications Medication Instructions Recorded Confirmed Type Atorvastatin [Lipitor] 40 mg PO HS 04/27/17 09/08/17 History Aspirin 325 mg PO DAILY 08/10/17 09/08/17 History Atenolol [Tenormin] 100 mg PO DAILY 08/10/17 09/08/17 History Acetaminophen [Tylenol] 500 mg PO Q5H PRN 09/08/17 09/08/17 History Clindamycin [Cleocin] 300 mg PO TID 09/08/17 09/08/17 History Doxycycline [Vibramycin] 100 mg PO BID 09/08/17 09/08/17 History Lisinopril [Prinivil] 20 mg PO DAILY 09/08/17 09/08/17 History Oxycodone/Acetaminophen 5/325 1 tab PO TID PRN 09/08/17 09/08/17 History [Percocet 5/325] methylPREDNISolone 4 mg PO . DIRECTED 09/08/17 09/08/17 History [Methylprednisolone] Allergies Allergy/AdvReac Type Severity Reaction Status Date / Time Penicillins Allergy Unknown unknown Verified 09/08/17 09:03 Exam Vital Signs: Temperature 97.7 F 09/08/17 12:16 Pulse Rate 100 09/08/17 12:16 Respiratory Rate 20 09/08/17 12:16 Blood Pressure 152/89 H 09/08/17 12:16 Pulse Oximetry 95 09/08/17 12:16 Comments: Patient is seen in ED #5 with at the bedside, who contributes to the history. - Constitutional Present: no acute distress, well nourished, well developed, morbidly obese, cooperative - Routine HEENT Exam Head: Present: normocephalic, atraumatic Eye: Present: PERRL. Absent: conjunctival icterus ENT: Present: mucous membranes moist, oropharynx clear Comments: Poor dentition with missing teeth. - Routine Neck Exam Present: supple, full ROM, trachea midline - Routine Chest/Breast/Axilla Exam Chest wall: Absent: tenderness, pacemaker - Routine Respiratory Exam Present: CTA bilaterally. Absent: rales, respiratory distress, rhonchi, stridor , wheezes, crackles - Routine Cardiovascular Exam Present: RRR, S1, S2 - Routine Abdominal Exam Present: soft, normoactive bowel sounds, non distended, non tender Comments: Healed surgical incision without erythema, discharge or ecchymosis. - Routine Extremities Exam Present: no edema, full ROM, pulses intact. Absent: calf tenderness - Routine Back/Spine/Pelvis Exam Back/Spine: Present: full ROM. Absent: vertebral tenderness - Routine Skin Exam Present: dry, warm Comments: Afebrile; erythema to bilateral soles of the feet which blanches with pressure; vesicles/lesions noted to toes on right foot and along lateral aspect of right foot without discharge, bleeding or pus; generalized erythematous papular rash along trunk without red streaking or discharge; multiple lesions in circular formation at mid lower back approximately at the sacrum with necrotic centers; no discharge or bleeding. - Routine Neurological Exam Present: alert, oriented X3, moving all extremities, normal tone, hearing grossly intact, normal speech - Routine Psychiatric Exam Present: normal affect, cooperative Results - Labs CBC & Chem 7: 09/08/17 09:41 09/08/17 09:45 Assessment and Plan Assessment and Plan: Assessment: Drug reaction vs. cellulitis, acute - present on admission. Current immunosuppression with chemotherapy. Hypernatremia (Na 145), present on admission. Elevated lactate (2.6), present on admission. S/P sigmoid resection for adenocarcinoma of the colon - 07/06/17. S/P right partial nephrectomy for clear cell renal carcinoma - 07/06/17. CAD. A-fib, chronic. Hypertension. Diabetes mellitus, type II. Anemia, chronic. Morbid obesity - BMI 37.1. Plan - 09/08/17: Admit to observation status under the care of Dr. Giraldo. Continue NS 100cc/hr for hydration given hypernatremia as well as elevated lactate. Procalcitonin 0.07 on admission. Repeat lactate trending down - 1.4 at 1330. Patient started on Doxycycline on 09/02/17 with the addition of clindamycin on for suspected cellulitis. Currently no signs of infection (WBC 4.5, vital signs stable, afebrile). Blood cultures obtained and results pending. Will hold clindamycin at this time. Recommend continuation of doxycycline based on recommendations below. Clinica exam more consistent with drug reaction from Vectibix which is known to frequently cause acneiform eruptions and/or hand-foot skin reactions as it inhibits the epidermal growth factor receptor. *Patient is known to be at increased risk of development of EGFR inhibitor- related acneiform rash as he is a male, < 70 years old and given his history of metastatic colorectal cancer. Treatment recommendations for acneiform eruptions per Up To Date include: - prophylactic therapy with doxycycline 100mg BID with low potency topical steroid BID for the first 6 weeks of therapy. - Mild (Grade 1) - Hydrocortisone 2.5% cream AND clindamycin 1% gel topically to affected areas. - Moderate (Grade 2) - Hydrocortisone 2.5%, desonide, alclometasone 0.05% creams to the face and neck OR fluocinonide 0.05% cream to the chest and back AND doxycycline 100mg BID *continue above treatment and reassess after 2 weeks. - Severe (Grade 3) - Hydrocortisone 2.5%, desonide, alclometasone 0.05% creams to the face and neck OR fluocinonide 0.05% cream to the chest and back AND doxycycline 100mg BID AND prednisone 0.5mg/kg x 7 days *consider low doses of isotretinoin (20-30 mg/day) as well. *continue above treatment and reassess after 2 weeks. If reaction worsens or does not improve, dose interruption or discontinuation of chemo may be needed. Treatment recommendations for Hand-Foot Skin Reaction per Up To Date include: - topical clobetasol 0.05% BID to affected areas. - 2% lidocaine topical as needed for pain relief to affected areas. - Emollients; avoid hot water. - Consider topical urea 20-40% or salicylic acid 6-10%. Increased risk for skin infections - monitor closely. Patient's to bring home medications to be reconciled. Patient able to take home medications once available. Will recheck labs in AM to monitor blood counts, electrolytes and renal function. Upon discharge, patient's care will be returned to his PCP. Resuscitation Status: Full Code - Time spent with patient Time with patient PN: other (85 minutes) - Physician Narrative Physician: Margarita Giraldo MD Narrative: Date: 09/08/17 Time: 4:50 PM-I reviewed this chart, the patient history, and the CASE MANAGEMENT RN's/PA's documented findings as above. We discussed and formulated the assessment and plan as above with the additions below.-Dr. Giraldo I saw the patient earlier this afternoon accompanied by his . He describes starting a new chemotherapy vectibix last week, and a couple of days later he developed a pruritic rash on his legs, feet, abdomen, back and below his axilla. His right foot especially has been painful to walk. He has developed some bullae on his right foot. He has black discoloration which be skin necrosis on his right lateral thigh as well as some similar black discoloration , possible necrosis on the sacrum. His areas are tender. He has had no systemic symptoms and otherwise feels well other than areas of painful rash and some itching. He denies any oral lesions other than in the corner of his lips on the right. He has had no fevers, chills or sweats. No fatigue or malaise. He has been eating and drinking well. No nausea vomiting or constipation. He has some mild occasional diarrhea. No urinary difficulties. He has never had problems with rash before. He does have chronic dry skin especially on his feet and in his abdomen under his pannus. He has recovered well from his surgery for colon cancer and a kidney tumor. On exam he is alert and in no acute distress. Chest is clear to auscultation. Cardio vascular reveals a regular rate and rhythm with occasional ectopic beat. Abdomen is soft, nontender and nondistended. Abdomen is obese. There is a well- healed midline scar on his abdomen. Bowel sounds are normoactive. Extremities reveal no edema. As very dry skin on his feet with small bullae forming on the right foot. He has an acneiform type rash on his legs and back. He has several small discrete areas of black discoloration which is possible skin necrosis on the right upper lateral thigh and sacral area. Due to his unusual rash and concerns for necrotic areas of skin, I did call and talk with Dr. Richardson and we decided the patient would likely benefit from transfer to [facility] where infectious disease specialists are available on a daily basis as well as access to the burn surgeons who evaluate and help take care of extensive wounds. I did they were agreeable to transfer. I did call and speak with the hospitalist at [facility] and the patient was accepted in transfer. He will be transferred by ambulance. He does appear medically stable at this time. Hospital Course Summary Disclaimer: The visit summary below is not to be considered part of the above Progress Note. Hospital Course: Plan - 09/08/17: Admit to observation status under the care of Dr. Giraldo. Continue NS 100cc/hr for hydration given hypernatremia as well as elevated lactate. Procalcitonin 0.07 on admission. Repeat lactate trending down - 1.4 at 1330. Patient started on Doxycycline on 09/02/17 with the addition of clindamycin on for suspected cellulitis. Currently no signs of infection (WBC 4.5, vital signs stable, afebrile). Blood cultures obtained and results pending. Will hold clindamycin at this time. Recommend continuation of doxycycline based on recommendations below. Clinica exam more consistent with drug reaction from Vectibix which is known to frequently cause acneiform eruptions and/or hand-foot skin reactions as it inhibits the epidermal growth factor receptor. *Patient is known to be at increased risk of development of EGFR inhibitor- related acneiform rash as he is a male, < 70 years old and given his history of metastatic colorectal cancer. Treatment recommendations for acneiform eruptions per Up To Date include: - prophylactic therapy with doxycycline 100mg BID with low potency topical steroid BID for the first 6 weeks of therapy. - Mild (Grade 1) - Hydrocortisone 2.5% cream AND clindamycin 1% gel topically to affected areas. - Moderate (Grade 2) - Hydrocortisone 2.5%, desonide, alclometasone 0.05% creams to the face and neck OR fluocinonide 0.05% cream to the chest and back AND doxycycline 100mg BID *continue above treatment and reassess after 2 weeks. - Severe (Grade 3) - Hydrocortisone 2.5%, desonide, alclometasone 0.05% creams to the face and neck OR fluocinonide 0.05% cream to the chest and back AND doxycycline 100mg BID AND prednisone 0.5mg/kg x 7 days *consider low doses of isotretinoin (20-30 mg/day) as well. *continue above treatment and reassess after 2 weeks. If reaction worsens or does not improve, dose interruption or discontinuation of chemo may be needed. Treatment recommendations for Hand-Foot Skin Reaction per Up To Date include: - topical clobetasol 0.05% BID to affected areas. - 2% lidocaine topical as needed for pain relief to affected areas. - Emollients; avoid hot water. - Consider topical urea 20-40% or salicylic acid 6-10%. Increased risk for skin infections - monitor closely. Patient's to bring home medications to be reconciled. Patient able to take home medications once available. Will recheck labs in AM to monitor blood counts, electrolytes and renal function. Upon discharge, patient's care will be returned to his PCP.
--- NOTE | 2017-09-08 16:32 | Discharge Summary ---
Discharge Information Date of admission: 09/08/17 11:45 Anticipated date of discharge: 09/08/17 Attending Physician: Margarita Giraldo MD Primary care physician: Brandon Mejia MD Drug reaction vs. cellulitis, acute - present on admission. Current immunosuppression with chemotherapy. Hypernatremia (Na 145), present on admission. Slight Elevated lactate (2.6), present on admission-re check had normalized S/P sigmoid resection for adenocarcinoma of the colon - 07/06/17. S/P right partial nephrectomy for clear cell renal carcinoma - 07/06/17. CAD. A-fib, chronic. Hypertension. Diabetes mellitus, type II. Anemia, chronic. Morbid obesity - BMI 37.1. - Laboratory Labs: Laboratory Tests 09/08/17 09/08/17 09/08/17 09:41 09:45 09:45 WBC 4.5 RBC 4.42 L Hgb 11.3 L Hct 34.4 L MCV 77.8 L MCH 25.6 L MCHC 32.8 RDW Std Deviation 41.4 Plt Count 179 MPV 9.5 Immature Gran % (Auto) 0.0 Neut % (Auto) 70.6 H Lymph % (Auto) 21.5 L [place] % (Auto) 7.3 Eos % (Auto) 0.4 Baso % (Auto) 0.2 Neut # (Auto) 3.2 Lymph # (Auto) 1.0 [place] # (Auto) 0.3 Eos # (Auto) 0.0 Baso # (Auto) 0.0 Abs Immat Gran (auto) 0.00 Turbidity < 20 Sodium 145 H Potassium 4.2 Chloride 106 Carbon Dioxide 26 Anion Gap 13 BUN 18.0 Creatinine 0.6 L GFR Calculation 135 BUN/Creatinine Ratio 30 H Glucose 168 H Calculated Osmolality 285 H Calcium 9.3 Total Bilirubin 0.40 Conjugated Bilirubin 0.00 Unconjugated Bilirubin 0.10 Icterus Index < 2 AST 18 Alkaline Phosphatase 93 Total Protein 6.5 Albumin 3.8 Globulin 2.7 Albumin/Globulin Ratio 1.4 Plasma Lactate 2.6 H Procalcitonin 0.07 Specimen Hemolysis < 15 09/08/17 09/08/17 13:32 15:56 WBC RBC Hgb Hct MCV MCH MCHC RDW Std Deviation Plt Count MPV Immature Gran % (Auto) Neut % (Auto) Lymph % (Auto) [place] % (Auto) Eos % (Auto) Baso % (Auto) Neut # (Auto) Lymph # (Auto) [place] # (Auto) Eos # (Auto) Baso # (Auto) Abs Immat Gran (auto) Turbidity Sodium Potassium Chloride Carbon Dioxide Anion Gap BUN Creatinine GFR Calculation BUN/Creatinine Ratio Glucose Calculated Osmolality Calcium Total Bilirubin Conjugated Bilirubin Unconjugated Bilirubin Icterus Index AST Alkaline Phosphatase Total Protein Albumin Globulin Albumin/Globulin Ratio Plasma Lactate 1.4 1.7 Procalcitonin Specimen Hemolysis History of Present Illness HPI: Shaun Jones is a 67 -year-old male who has been under the primary care of Dr. Mejia. He underwent a screening colonoscopy due to Hemoccult positive stools on 06/20/17 that unfortunately revealed invasive moderate differential colonic adenocarcinoma. Upon further radiologic studies at that time, he was found to also have a mass in the right kidney which was found to be clear cell renal cell carcinoma as well as numerous lymph nodes in the sigmoid mesentery and retroperitoneal adenopathy with increased concern for metastatic disease. He underwent open sigmoid resection and lower anterior resection by Dr. Porras along with right open partial nephrectomy by Dr. Sheriff on 07/06/17. Postoperatively, he required a total of 8 units of packed irradiated, leuko- reduced red blood cells along with FFP and cryo-infusion due to acute blood loss. His was discharged home on 08/10. He established care with Dr. Richardson, oncology, on 08/11/17 and had a power port placed that same day. He underwent his first treatment on 08/17/17 including Flofox (oxaliplatin wiht 5FU and folinic acid). He reports that that evening after his treatment, he developed chest pain and was seen in the [place] [facility] Evaluation including labs, EKG and imaging at that time were unremarkable and his chest pain had resolved without treatment. He was discharged home without further incident. He has known CAD with recent heart cath on 03/2017 revealing 90% stenosis at the distal LAD and 80-90% at the first diagonal branch with the proximal LAD exhibited 30-40% stenosis. At that time, he was in a-fib with normal LV function with an EF of 60%. It was determined that he would best be treated medically without anticoagulation given his iron deficiency anemia and previously Hemoccult positive stools which ultimately revealed colon cancer. On 08/30/17, he underwent his 2nd round of chemotherapy including the Flofox with the new addition of Vectibix. On 09/02/17, he noticed a "rash" with erythema and pain to the soles of his feet and was started on Doxycycline per Dr. Richardson. On 09/03/17 his feet began to burn with increasing pain and new formation of blisters on the toes and lateral side of the foot. He also reported blistering in a circular formation at the top of his sacrum and spreading erythema along this back and trunk. Dr. Richardson recommended continuation of the Doxycycline with the addition of clindamycin on 09/06/17. Due to the progression of the rash and increasing in discomfort, Dr. Richardson recommended evaluation in the ED. Other than the rash and the pain from the rash, Shaun denies any fevers, chills, cough, congestion, chest pain, shortness of breath, abdominal pain, nausea, vomiting or dysuria. His appetite has been stable and bowels are moving well without noted blood. Upon arrival to the ED, labs were obtained and relatively unremarkable with the exception of stable anemia (Hgb 11.3), mild hypernatremia (Na 145) and hyperglycemia (Glu 168 ). Lactate was noted to be elevated at 2.[address] Giraldo was consulted and he was accepted to observation status for further evaluation and treatment due to concern for possible cellulitis and outpatient therapy failure. His length of stay is no expected to exceed more than 2 over nights. Objective Vital signs: Temperature 97.7 F 09/08/17 12:16 Pulse Rate 102 H 09/08/17 13:43 Respiratory Rate 20 09/08/17 12:16 Blood Pressure 152/89 H 09/08/17 12:16 Pulse Oximetry 95 09/08/17 12:16 Hospital Course This is a general summary of the patient's hospital course. For more details refer to the complete medical record. Hospital course: Plan - 09/08/17: The patient was initially admitted today from the ER with concerns for cellulitis on his foot. On my evaluation, the patient has an extensive rash on his feet, legs, back, abdomen and axillary regions. He has a rash with bullae on the right foot. He has black discoloration/possible necrosis of his skin on his right lateral thigh and right posterior sacrum. I did discuss the patient's skin findings and symptoms with his oncologist Dr. Richardson and we decided on transfer to [facility] where he would have access to daily infectious disease specialist, broaching machine repairer if needed, and the burn surgeons who work with extensive wounds. The patient may have a drug reaction (EGFR inhibitor induced acneiform rash) to his chemotherapy vectibix. Fortunately, the patient has no complaints other than pain in his foot and some occasional pain in the sacrum area. He appears nontoxic at this time. He has some itching from other areas of his rash. He denies any fevers, chills or sweats. He denies any fatigue or malaise. His appetite has been good. His vital signs have been stable. Lab work is essentially normal other than a mildly elevated lactate on admission which had normalized. I did call and talk with the hospitalist with [facility] and the patient was accepted there. Discharge Plan - Discharge Disposition Disposition: 02 To [facility] Acute Care *Condition: Stable Reason For Visit (Visit label in EMR): drug rash, possible herpetic lesions - Discharge Medications *Discharge Medications: No Action Atorvastatin [Lipitor] 40 mg PO HS Aspirin 325 mg PO DAILY Acetaminophen [Tylenol] 500 mg PO Q5H PRN PRN Reason: Pain Oxycodone/Acetaminophen 5/325 [Percocet 5/325] 1 tab PO TID PRN PRN Reason: Pain methylPREDNISolone [Methylprednisolone] 4 mg PO . DIRECTED Lisinopril [Prinivil] 20 mg PO DAILY Doxycycline [Vibramycin] 100 mg PO BID Clindamycin [Cleocin] 300 mg PO TID Atenolol [Tenormin] 100 mg PO DAILY - Discharge Packet/Instructions *Diet: As tolerated *Activity: Per accepting physician *Pain Management/Treatment: Per accepting physician *Wound Care: Per accepting physician *Expected Signs/Symptoms: Not applicable *Notify Physician if: Not applicable *During Business Hours Contact: Not applicable *After Business Hours Contact: Not applicable *Pending Lab/Results: Follow up w/Provider - Referrals/Follow Up - Patient Handouts - Dismissal Complete Discharge Instructions are:: Complete Physician Narrative - Narrative Attestation Narrative: Date: 09/08/17 Time: 5906
[2017-09-08 16:38] VITALS: BP 137/95; PULSE 98; RESP 16; O2SAT 99
[2017-09-08] MEDS ORDERED: POM ATORVASTATIN 40 MG TABLET PO SCH (21:00)
[2017-09-09] MEDS ORDERED: ATENOLOL 100 MG PO SCH (09:00)
[2017-09-09] MEDS ORDERED: LISINOPRIL 20 MG PO SCH (09:00)
[2017-09-09] MEDS ORDERED: ASPIRIN 325 MG TABLET PO SCH (09:00)
[2017-09-09] MEDS ORDERED: POLYETHYL GLYCOL 3350 17gm PACKET PO SCH (09:00)
== END 2017-09-08 17:21 | disposition short-term general hospital (02) ==
LOC: ED 08:52 → MED 08:52
PROVIDERS: ADMIT Internal Medicine; ATTEND Internal Medicine

== ENCOUNTER 2017-11-21 13:16 | Inpatient (IN) ==
[2017-11-21] MEDS ORDERED: NS 1,000 ML IV SCH (14:15)
--- NOTE | 2017-11-21 14:18 | Emergency Department Report ---
General Adult HPI - General Chief complaint: Shortness of Breath/Dyspnea <Chirag Conway Q - 11/22/17 06:09 > Stated complaint: dehydration,n/v <Chirag Conway Q - 11/22/17 06:09> Time Seen by Provider: 11/21/17 14:06 <Chirag Conway - 11/22/17 06:09> Source: patient, family () <JavierIdalmis L - 11/22/17 02:45> - History of Present Illness HPI narrative: Patient came to ER to be evaluated after being seen in Dr Richardson's office earlier today. Pt is progressively becoming weak and over the past 2-[address] Richardson thought pt could be developing PNA. Pt hasn't noted much of a cough but does report a bad rash in the groin which is very painful and oozes despite using "butt balm." <Idalmis Herrera - 11/22/17 02:45> - Related Data Home Medications Medication Instructions Recorded Confirmed Atorvastatin [Lipitor] 40 mg PO HS 04/27/17 11/21/17 Aspirin 325 mg PO DAILY 08/10/17 11/21/17 Atenolol [Tenormin] 50 mg PO DAILY 08/10/17 11/21/17 Acetaminophen [Tylenol] 500 mg PO Q5H PRN 09/08/17 11/21/17 Lisinopril [Prinivil] 10 mg PO DAILY 09/08/17 11/21/17 Oxycodone/Acetaminophen 5/325 1 tab PO TID PRN 09/08/17 11/21/17 [Percocet 5/325] Acyclovir [Acyclovir] 400 mg PO BID 11/21/17 11/21/17 Magnesium Oxide [Magnesium] 400 mg PO BID 11/21/17 11/21/17 Metformin HCl [Metformin HCl] 1,000 mg PO BID 11/21/17 11/21/17 <Chirag Conway - 11/22/17 06:09> Allergies Allergy/AdvReac Type Severity Reaction Status Date / Time Penicillins Allergy Unknown unknown Verified 11/21/17 13:55 <Chirag Conway - 11/22/17 06:09> Review of Systems All systems: reviewed and negative except as stated (SOA, weak, skin changes under arms and in groin - painful in groin) <Idalmis Herrera - 11/22/17 02:45> [facility] Patient Stated Medical History Cardiac Arrhythmia Yes: AFIB PER H&P Coronary Artery Disease Yes: PER H&P LAD 90% stenosis EF 60% Hypertension Yes Hypotension Yes Myocardial Infarction No Pneumonia Yes: Hx Sleep Apnea Yes Diabetes Mellitus Type 1 No Diabetes Mellitus Type 2 Yes Other GI Yes: COLON CANCER Hx Renal Disease Yes: RENAL CELL CARCINOMA Other Yes: hx renal cancer Anemia Yes: Hx- 'lightly' per pt Osteoarthritis Yes Other Musculoskeletal Yes: Hip discomfort-right/right knee discomfort Other Yes: POWER PORT PLACEMENT <Chirag Conway - 11/22/17 06:09> Patient Stated Medical History Cardiac Arrhythmia Yes: AFIB PER H&P Coronary Artery Disease Yes: PER H&P LAD 90% stenosis EF 60% Hypertension Yes Hypotension Yes Myocardial Infarction No Pneumonia Yes: Hx Sleep Apnea Yes Diabetes Mellitus Type 1 No Diabetes Mellitus Type 2 Yes Other GI Yes: COLON CANCER Hx Renal Disease Yes: RENAL CELL CARCINOMA Other Yes: hx renal cancer Anemia Yes: Hx- 'lightly' per pt Osteoarthritis Yes Other Musculoskeletal Yes: Hip discomfort-right/right knee discomfort Other Yes: POWER PORT PLACEMENT <Idalmis Herrera - 11/21/17 14:24> Medical History Updates: CAD. A-fib. Diabetes mellitus, type 2. Hypertension. Hyperlipidemia. Obesity - BMI 37. Chronic anemia. 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 <Idalmis Herrera - 11/21/17 14:24> Surgical History: Colonoscopy adenocarcinoma rectum 06/20/2017. Low anterior resection-07/06/17- [facility]. Partial right nephrectomy-07/06/17- Dr. Sheriff. Power Port -08/11/2017. Cholecystectomy 2012- [facility]. Cardiac catheterization EF 60%, diatal LAD 90% stenosis Jose J <Idalmis Herrera - 14:24> Family History: Family History (Last Reviewed 08/03/17 @ 14:49 by DAYANA Sanchez) Mother , age 83 Diabetes High blood pressure Heart attack Brother Diabetes High blood pressure Heart attack Stroke Sister Diabetes Heart attack High blood pressure Stroke <ManKaren pateln Q - 11/22/17 06:09> Family History (Last Reviewed 08/03/17 @ 14:49 by Loreto Galdamez [facility]) Mother , age 83 Diabetes High blood pressure Heart attack Brother Diabetes High blood pressure Heart attack Stroke Sister Diabetes Heart attack High blood pressure Stroke <Abraham Herrerakg Campos 11/21/17 14:24> Family History Updates: Mother , age 83. Diabetes. HTN ( hypertension). Heart attack. Brother. Diabetes. HTN (hypertension). Heart attack. Stroke. Sister. Diabetes. Heart attack. HTN (hypertension). Stroke <Idalmis Herrera 11/21/17 14:24> - Social History Smoking status: Former smoker (quit 42 yrs ago) <Idalmis Herrera 11/21/17 14: 24> second hand exposure: No <Idalmis Herrera 11/21/17 14:24> Substance use type: does not use <Idalmis Herrera 11/21/17 14:24> Alcohol intake frequency: does not drink <Idalmis Herrera 11/21/17 14:24> Housing: house <Idalmis Herrera 11/21/17 14:24> Household members: spouse <Idalmis Herrera 11/21/17 14:24> Current occupational status: retired <Idalmis Herrera 11/21/17 14:24> Does patient use chewing tobacco?: No <Idalmis Herrera 11/21/17 14:24> Current residence: Apartment/Private Home <Idalmis Herrera 11/21/17 14:24> Social history: Dr Porras - surgeon Dr. Han - nephrology Dr. Mejia - PCP Dr. Richardson - onc <Idalmis Herrera 11/21/17 14:24> Physical Exam - Limitations Limitations: no limitations <Idalmis Herrera 11/21/17 14:24> - General General appearance: in no apparent distress <Idalmis Herrera 11/21/17 14:24> - Normal Exams: Head:: Normocephalic without trauma <Idalmis Herrera 11/21/17 14:24> Eyes:: Pupils are PERRLA w/ EOMI <Idalmis Herrera 11/21/17 14:24> Neck:: Full range of motion, without adenopathy <Idalmis Herrera 11/21/17 14: 24> Cardiovascular:: capillary refill <Idalmis Herrera 11/22/17 02:45> Abdomen:: soft, non-tender, non-distended <Idalmis Herrera 11/21/17 14:24> Neurological:: Patient is alert, and oriented, exams w/o gross deficits < Idalmis Herrera 11/21/17 14:24> Psychiatric:: Patient exhibits, appropriate attention <Idalmis Herrera 14:24> - ENT ENT exam: Present: other (scabbed/vesicular rash at angles of mouth, missing teeth) <Idalmis Herrera 11/22/17 02:45> - Respiratory Respiratory exam: Present: other (rhonchi/coarse R mid/lower lung on expiration) <Idalmis Herrera 11/22/17 02:45> - Cardiovascular Cardiovascular exam: Present: tachycardia, irregular rhythm <Idalmis Herrera 11/22/17 02:45> - exam: Present: other (erythema and excoriation with exudative drainage partially r/t topical meds but partially r/t suspected yeast and bacterial infection) <Idalmis Herrera 11/22/17 02:45> - Extremities Exam Extremities exam: Present: pedal edema <Idalmis Herrera 11/22/17 02:45> Course Vital Signs Temperature 98.0 F 11/21/17 13:31 Pulse Rate 124 H 11/21/17 13:31 Respiratory Rate 22 11/21/17 13:31 Blood Pressure 119/58 11/21/17 13:31 Pulse Oximetry 98 11/21/17 13:31 Temperature 98.0 F 11/22/17 00:00 Pulse Rate 98 11/22/17 04:00 Respiratory Rate 17 11/22/17 02:00 Blood Pressure 127/63 11/22/17 02:00 Pulse Oximetry 100 11/22/17 02:00 <Chirag Conway - 11/22/17 06:09> Vital Signs Temperature 98.0 F 11/21/17 13:31 Pulse Rate 124 H 11/21/17 13:31 Respiratory Rate 22 11/21/17 13:31 Blood Pressure 119/58 11/21/17 13:31 Pulse Oximetry 98 11/21/17 13:31 Temperature 98.0 F 11/21/17 13:31 Pulse Rate 124 H 11/21/17 13:31 Respiratory Rate 22 11/21/17 13:31 Blood Pressure 119/58 11/21/17 13:31 Pulse Oximetry 98 11/21/17 13:31 <Idalmis Herrera - 11/21/17 14:24> Medical Decision Making - MDM Narrative Medical decision making narrative: Septic shock based on Lactate >4, SIRS criteria and probably cellulitis as source. He was started on vanc, cefepime and levaquin and started on a bolus of 3450ml NS. Potassium replaced orally. Mg to be replaced after he receives fluid bolus. Will likely need diflucan in addition to atbx tx. He was given 10mg cardizem in ER as rates were 130's-140's. Pt chronically in afib. Dr Giraldo accepted pt for IP admission. <Idalmis Herrera - 11/22/17 02:45> - Lab Data Lab results reviewed: Yes: I reviewed the patient's lab results. <Idalmis Herrera - 11/22/17 02:45> Result diagrams: 11/22/17 04:40 11/22/17 04:40 <Chirag Conway Q - 11/22/17 06:09> Lab Results 11/21/17 11/21/17 11/21/17 Range/Units 14:12 14:12 14:12 WBC 16.1 H (4.5-11.0) T/MM3 RBC 3.86 L (4.50-5.90) M/MM3 Hgb 10.5 L (13.5-17.5) GM/DL Hct 31.3 L (41-53) % MCV 81.1 (80-100) UM3 MCH 27.2 (26-34) UUG MCHC 33.5 (31-37) GM/DL RDW Std Deviation 49.9 (36.9-50.2) FL Plt Count 119 L (130-400) T/MM3 MPV 10.4 (9.4-12.4) UM3 Immature Gran % (Auto) Not performed Neut % (Auto) Not performed Lymph % (Auto) Not performed [place] % (Auto) Not performed Eos % (Auto) Not performed Baso % (Auto) Not performed Neut # (Auto) Not performed Lymph # (Auto) Not performed [place] # (Auto) Not performed Eos # (Auto) Not performed Baso # (Auto) Not performed Abs Immat Gran (auto) Not performed Neutrophils % (Manual) 97.0 H (33-66) % Band Neutrophils % 1.0 (0-6) % Lymphocytes % (Manual) 2.0 L (23-45) % Neutrophils # (Manual) 15.6 H (1.8-7.7) T/MM3 Band Neutrophils # 0.2 T/MM3 Lymphocytes # (Manual) 0.3 L (1-4.8) T/MM3 Poikilocytosis 2+ Ovalocytes 2+ RBC Morph Comment Abnormal Turbidity < 20 (0-20) Sodium 139 (136-146) MEQ/L Potassium 3.1 L (3.6-5) MEQ/L Chloride 103 (98-107) MEQ/L Carbon Dioxide 19 L (22-30) MEQ/L Anion Gap 17 H (5-15) meq/L BUN 11.0 (9-20) MG/DL Creatinine 0.7 L (0.8-1.5) mg/dL GFR Calculation 113 BUN/Creatinine Ratio 16 (6-26) RATIO Glucose 188 H (75-110) MG/DL Calculated Osmolality 272 (261-280) MOSM/KG Calcium 7.1 L (8.4-10.2) MG/DL Magnesium 0.7 L (1.6-2.3) MG/DL Total Bilirubin 1.10 (0.20-1.30) MG/DL Icterus Index < 2 (0-7) AST 19 (17-59) U/L ALT 15 (1-50) U/L Alkaline Phosphatase 97 (38-126) U/L Troponin I < 0.012 (0-0.12) ng/ml Total Protein 5.7 L (6.3-8.2) g/dL Albumin 3.2 L (3.5-5.0) g/dL Globulin 2.5 (2.4-3.6) G/DL Albumin/Globulin Ratio 1.3 (1.1-2.2) RATIO Plasma Lactate 4.4 H* (0.6-2.2) MMOL/L Procalcitonin < 0.05 NG/ML Specimen Hemolysis < 15 (0-25) <Chirag Conway 11/22/17 06:09> - Radiology Data Radiology results reviewed: Yes: I reviewed the patient's radiology results. < Idalmis Herrera 11/22/17 02:45> CXR IMPRESSION: No acute cardiopulmonary disease. <Idalmis Herrera 11/22/17 02:45> - EKG Data EKG #1 EKG attestation: Yes: I reviewed and interpreted this EKG. <Chirag Conway 11/22/17 06:09> Rate: tachycardia <Chirag Conway 11/22/17 06:09> Rhythm: A.Fib <Chirag Conway 11/22/17 06:09> Meta/QRS: normal <Chirag Conway 11/22/17 06:09> Interpretation: no acute changes <Chirag Conway 11/22/17 06:09> Disposition Clinical Impression: Septic shock, Cellulitis of groin <Chirag Conway 11/22/17 06:09> Disposition: 02 To [facility] Acute Care <Chirag Conway 11/22/17 06:09> Condition: Stable <Chirag Conway 11/22/17 06:09> Instructions: <Chirag Conway 11/22/17 06:09> Prescriptions: No Action Atorvastatin [Lipitor] 40 mg PO HS Aspirin 325 mg PO DAILY Acetaminophen [Tylenol] 500 mg PO Q5H PRN PRN Reason: Pain Oxycodone/Acetaminophen 5/325 [Percocet 5/325] 1 tab PO TID PRN PRN Reason: Pain Lisinopril [Prinivil] 10 mg PO DAILY Magnesium Oxide [Magnesium] 400 mg PO BID Metformin HCl [Metformin HCl] 1,000 mg PO BID Acyclovir [Acyclovir] 400 mg PO BID Atenolol [Tenormin] 50 mg PO DAILY <Chirag Conway Q - 11/22/17 06:09> Referrals: Brandon Mejia MD [Primary Care Provider] - <Chirag Conway - 11/22/17 06:09> Forms: <Chirag Conway - 11/22/17 06:09> - Seen By: midlevel <Idalmis Herrera - 11/22/17 02:45>
[2017-11-21] MEDS ORDERED: NS 1,000 ML IV ONE ×3 (14:39→17:22)
--- NOTE | 2017-11-21 14:39 | XRay Report ---
INDICATION: weakness PROCEDURE: CHEST 2-VIEWS UPRIGHT (PA & LAT) Encounter: Initial COMPARISON: Chest x-ray dated August 17, [address] dated November 11, 2017 FINDINGS: The lungs are radiographically clear without evidence of focal abnormal airspace opacity. There is no pleural effusion or pneumothorax. Right IJ port catheter. The heart size, mediastinal contours and pulmonary vascularity are within normal limits. There is no significant skeletal abnormality. IMPRESSION: No acute cardiopulmonary disease. .
[2017-11-21] MEDS ORDERED: DiltiaZEM 25 MG/5 ML INJECTION IVP ONE (14:41)
[2017-11-21] MEDS: SALINE FLUSH 10ml SYRINGE IVF PRN (14:47)
--- OUTSIDE RECORDS SUMMARY | 2017-11-21 15:06 | External Medical Summary | Referral Summary ---
:1950 Author Organization [facility] [place] [phone] Care Team Providers Name Role Phone Brandon Mejia Primary Care Physician Encounter VC Date(s): 01/08/15 - 01/08/15 [facility] [address] [place] [phone] Discharge Disposition: 01-Home or Self Care Attending Physician: Brandon Mejia MD Admitting Physician: Brandon Mejia MD Vital Signs Most recent to oldest [Reference Range]: 1 Blood Pressure [90-140/60-90 mmHg] 170/90 mmHg *HI* (01/08/15 8:04 AM) Problem List Condition Effective Dates Status Health Status Informant Benign essential Active hypertension(Confirmed) Symptomatic cholelithiasis(Confirmed) 05/23/12 Active Controlled diabetes Active mellitus(Confirmed) Bustamante's lung(Confirmed) Active Obesity(Confirmed) Active Allergies, Adverse Reactions, Alerts Substance Reaction Severity Status penicillin Unknown Active Medications aspirin 325 mg, Daily, 0 Refill(s) Start Date: 11/30/13 Status: Orderedatenolol 100 mg oral tablet 100 mg 1 tabs, Oral, Daily, # 90 tabs, 1 Refill(s), Pharmacy: [facility], 1 tabs Oral Daily Start Date: 01/08/15 Status: OrderedmetFORMIN 500 mg oral tablet 1,000 mg 2 tabs, Oral, BID, # 360 tabs, 1 Refill(s), Pharmacy: [facility], 2tabs Oral BID,x90 days Start Date: 01/08/15 Stop Date: 07/07/15 Status: Orderedmultivitamin 1 tabs, Oral, Daily, 0 Refill(s) Start Date: 01/04/14 Status: Ordered Results Hematology Most recent to oldest [Reference Range]: 1 WBC [4.8-10.8 10*3/uL] 6.3 10*3/uL (01/08/15 8:25 AM) RBC [4.60-6.20 10*6/uL] 4.88 10*6/uL (01/08/15 8:25 AM) Hgb [14.0-18.0 gm/dL] 13.3 gm/dL *LOW* (01/08/15 8:25 AM) Hct [42.0-52.0 %] 39.4 % *LOW* (01/08/15 8:25 AM) MCV [82.0-99.0 fL] 80.7 fL *LOW* (01/08/15 8:25 AM) MCH [27.0-32.0 pg] 27.3 pg (01/08/15 8:25 AM) MCHC [32.0-36.0 gm/dL] 33.8 gm/dL (01/08/15 8:25 AM) RDW [11.5-14.5 %] 14.6 % *HI* (01/08/15 8:25 AM) Platelet [150-400 10*3/uL] 176 10*3/uL (01/08/15 8:25 AM) MPV [8.8-14.8 fL] 11.0 fL (01/08/15 8:25 AM) Immature Granulocytes [0.0-1.0 %] 0.3 % (01/08/15 8:25 AM) Neutrophils [51-75 %] 68 % (01/08/15 8:25 AM) Lymphocytes [20-46 %] 24 % (01/08/15 8:25 AM) Monocytes [4-11 %] 5 % (01/08/15 8:25 AM) Eosinophils [0-4 %] 3 % (01/08/15 8:25 AM) Basophils [0-2 %] 0 % (01/08/15 8:25 AM) Neutro Absolute [1.90-7.00 10*3] 4.29 10*3 (01/08/15 8:25 AM) Lymph Absolute [0.80-3.30 10*3] 1.49 10*3 (01/08/15 8:25 AM) [place] Absolute [0.30-1.00 10*3] 0.30 10*3 (01/08/15 8:25 AM) Eos Absolute [0.00-0.50 10*3] 0.20 10*3 (01/08/15 8:25 AM) Baso Absolute [0.00-0.20 10*3] 0.02 10*3 (01/08/15 8:25 AM) Chemistry Most recent to oldest [Reference Range]: 1 Sodium Lvl [135-144 mEq/L] 140 mEq/L (01/08/15 8:25 AM) Potassium Lvl [3.5-5.2 mEq/L] 4.9 mEq/L (01/08/15 8:25 AM) Chloride [99-111 mEq/L] 107 mEq/L (01/08/15 8:25 AM) CO2 [23-31 mEq/L] 26 mEq/L (01/08/15 8:25 AM) AGAP [3-20] 7 (01/08/15 8:25 AM) BUN [8-26 mg/dL] 12 mg/dL (01/08/15 8:25 AM) Glucose Lvl [70-99 mg/dL] 121 mg/dL *HI* (01/08/15 8:25 AM) Creatinine Lvl [0.72-1.25 mg/dL] 0.70 mg/dL *LOW* (01/08/15 8:25 AM) eGFR [>60 mL/min] >60 mL/min 1 (01/08/15 8:25 AM) Calcium Lvl [8.9-10.5 mg/dL] 9.3 mg/dL (01/08/15 8:25 AM) Albumin Lvl [3.4-4.8 gm/dL] 4.1 gm/dL (01/08/15 8:25 AM) Total Protein [6.2-8.1 gm/dL] 6.4 gm/dL (01/08/15 8:25 AM) Globulin [1.8-4.0 gm/dL] 2.3 gm/dL (01/08/15 8:25 AM) ALT [0-55 U/L] 14 U/L (01/08/15 8:25 AM) AST [5-34 U/L] 13 U/L (01/08/15 8:25 AM) Alk Phos [40-150 U/L] 98 U/L (01/08/15 8:25 AM) Bili Total [0.2-1.2 mg/dL] 0.7 mg/dL (01/08/15 8:25 AM) Chol [0-199 mg/dL] 173 mg/dL (01/08/15 8:25 AM) Trig [0-149 mg/dL] 105 mg/dL (01/08/15 8:25 AM) HDL [40-84 mg/dL] 33 mg/dL *LOW* (01/08/15 8:25 AM) LDL [0-130 mg/dL] 119 mg/dL (01/08/15 8:25 AM) VLDL Cholesterol [0-28 mg/dL] 21 mg/dL (01/08/15 8:25 AM) Cardiac Risk [0.0-5.7] 5.2 (01/08/15 8:25 AM) Hgb A1c [4.1-5.6 %] 6.0 % *HI* (01/08/15 8:25 AM) eAvg Glucose 125.5 mg/dL (01/08/15 8:25 AM) 1Result Comment: Multiply eGFR results by 1.21 for race.Urinalysis Most recent to oldest [Reference Range]: 1 UA Color Yellow (01/08/15 8:35 AM) UA Appear Clear (01/08/15 8:35 AM) UA pH [5.0-8.0] 6.0 (01/08/15 8:35 AM) UA Leuk Est [Negative] Negative (01/08/15 8:35 AM) UA Nitrite [Negative] Negative (01/08/15 8:35 AM) UA Protein [Negative] Negative (01/08/15 8:35 AM) UA Glucose [Negative] Negative (01/08/15 8:35 AM) UA Ketones [Negative] Negative (01/08/15 8:35 AM) UA Urobilinogen [<1.0 mg/dL] 0.2 mg/dL (01/08/15 8:35 AM) UA Bili [Negative] Negative (01/08/15 8:35 AM) UA Blood [Negative] Negative (01/08/15 8:35 AM) UA Spec Grav [1.003-1.030] 1.004 (01/08/15 8:35 AM) Type Voided (01/08/15 8:35 AM) Immunizations Vaccine Date Refusal Reason pneumococcal 23-polyvalent vaccine 10/08/02 tetanus-diphth toxoids (Td) adult/adol 10/08/02 Procedures Procedure Date Related Diagnosis Body Site Excision of benign lesion of skin of extremities1 11/30/13 Cholecystectomy 05/23/12 Bronch2 05/23/90 Lab mariela with IOC 1Neurofibroma left [id number]'s lung Social History Social History Type Response Smoking Status Former smoker Assessment and Plan Extracted from: Title: Ambulatory Patient Education Author: Brandon Mejia MD Date: Family Medicine Cholesterol Cholesterol is a protein. Your body needs a small amount of cholesterol. Cholesterol may build up in your blood vessels. This increases your chance of having a heart attack or stroke. You cannot feel your cholesterol levels. The only way to know your cholesterol level is high is with a blood test. Keep your test results. Work with your doctor to keep your cholesterol at a good level. WHAT DO THE TEST RESULTS MEAN? Total cholesterol is how much cholesterol is in your blood. LDL is bad cholesterol. This is the type that can build up. You want LDL to be low. HDL is good cholesterol. It cleans your blood vessels and carries LDL away. You want HDL to be high. Triglycerides are fat that the body can burn for energy or store. WHAT ARE GOOD LEVELS OF CHOLESTEROL? Total cholesterol below 200. LDL below 100 for people at risk. Below 70 for those at very high risk. HDL above 50 is good. Above 60 is best. Triglycerides below 150. HOW CAN I LOWER MY CHOLESTEROL? Diet. Follow your diet programs as told by your doctor. Choose fish, white meat chicken, roasted turkey, or baked turkey. Try not to eat red meat, fried foods, or processed meats such as sausage and lunch meats. Eat lots of fresh fruits and vegetables. Choose whole grains, beans, pasta, potatoes, and cereals. Use only small amounts of olive, corn, or canola oils. Try not to eat butter, mayonnaise, shortening, or palm kernel oils. Try not to eat foods with trans fats. Drink skim or nonfat milk. Eat low-fat or nonfat yogurt and cheeses. Try not to drink whole milk or cream. Try not to eat ice cream, egg yolks, and full- fat cheeses. Healthy desserts include eben food cake, viral snaps, animal crackers, hard candy, popsicles, and low-fat or nonfat frozen yogurt. Try not to eat pastries, cakes, pies, and cookies. Exercise. Follow your exercise programs as told by your doctor. Be more active. You can try gardening, walking, or taking the stairs. Ask your doctor about how you can be more active. Medicine. Take medicine as told by your doctor. Document Released: 08/05/2009 Document Revised: 05/14/2014 Document Reviewed: 02/20/2014 [facility] Patient Information 2015 [employer]. This information is not intended to replace advice given to you by your health care provider. Make sure you discuss any questions you have with your health care provider. No follow up information was provided. Extracted from: Title: Office Visit Note Author: Brandon Mejia MD Date: 01/08/15 Assessment/Plan Elevated cholesterol This issue is stable and appropriate refills, lab, and f /u have been discussed. Ordered: Lipid Panel Elevated glucose This issue is stable and appropriate refills, lab, and f/u have been discussed. Ordered: Hemoglobin A1c Bustamante's lung This issue is stable and appropriate refills, lab, and f/u have been discussed. Hypertension This issue is stable and appropriate refills, lab, and f/u have been discussed. He is to monitor his bp and call if persistently elevated. Ordered: CBC w/ Differential Comprehensive Metabolic Panel Urinalysis with Culture if Indicated Orders: atenolol, 100 mg 1 tabs, Oral, Daily, # 90 tabs, 1 Refill(s), Pharmacy: [facility], 1 tabs Oral Daily
--- OUTSIDE RECORDS SUMMARY | 2017-11-21 15:06 | External Medical Summary | Referral Summary ---
:1950 Author Organization [facility] [place] [address] Care Team Providers Name Role Phone Brandon Mejia Primary Care Physician Encounter [facility] Date(s): 01/08/15 - 01/08/15 [facility] [address] [place] [phone] [place] Discharge Disposition: [...] Daily, # 90 tabs, 1 Refill(s), Pharmacy: [email or web address], 1 tabs Oral Daily Start Date: 01/08/15 Status: OrderedmetFORMIN 500 mg oral tablet 1,000 mg 2 tabs, Oral, BID, # 360 tabs, 1 Refill(s), Pharmacy: [email or web address], 2tabs Oral BID,x90 days [...] [0.80-3.30 10*3] 1.49 10*3 (01/08/15 8:25 AM) [place] Absolute [0.30-1.00 10*3] 0.30 10*3 (01/08/15 8:25 [...] 05/23/90 Lab mariela with IOC 1Neurofibroma left [id number]'s lung Social History Social History Type Response [...] 08/05/2009 Document Revised: 05/14/2014 Document Reviewed: 02/20/2014 [facility] Patient Information 2015 [employer]. This information is not intended to replace [...] Daily, # 90 tabs, 1 Refill(s), Pharmacy: [facility], 1 tabs Oral Daily
--- OUTSIDE RECORDS SUMMARY | 2017-11-21 15:06 | External Medical Summary | Referral Summary ---
:1950 Author Organization [facility] [place] [phone] Care Team Providers Name Role Phone Brandon Mejia Primary Care Physician Encounter [facility] [id number] Date(s): 03/08/17 - 03/08/17 [facility] [place] [phone] [place] Discharge Diagnosis: Benign essential hypertension Discharge Diagnosis: Controlled diabetes mellitus Discharge Diagnosis: Atrial fibrillation Discharge Diagnosis: Hip pain, right Discharge Diagnosis: Obesity Discharge Diagnosis: Encounter for Hemoccult screening Discharge Diagnosis: Bustamante's lung Discharge Diagnosis: Preop examination Discharge Disposition: 01-Home or Self Care Attending Physician: Brandon Mejia MD Admitting Physician: Brandon Mejia MD Vital Signs Most recent to oldest [Reference Range]: 1 Blood Pressure [90-140/60-90 mmHg] 140/90 mmHg (03/08/17 8:15 AM) Problem List Condition Effective Dates Status Health Status Informant Atrial fibrillation(Confirmed) Active Benign essential Active hypertension(Confirmed) Symptomatic cholelithiasis(Confirmed) 05/23/12 Active Controlled diabetes Active mellitus(Confirmed) Bustamante's lung(Confirmed) Active Knee pain, right(Confirmed) Active Obesity(Confirmed) Active Allergies, Adverse Reactions, Alerts Substance Reaction Severity Status penicillin Unknown Active Medications accu-chek MJ PLUS test strips accu-chek MJ PLUS test strips, See Instructions, patient to use One Touch Ultra to check blood glucose once per day for E11.9, # 100 Each, 0 Refill(s), Pharmacy: [facility], patient to use One Touch Ultra to check blood glucose o... Start Date: 09/09/16 Status: OrderedACCU-CHEK MJ PLUS W/ DEVICE KIT ACCU-CHEK MJ PLUS W/ DEVICE KIT, See Instructions, DX:E11.9, # 1 Each, 0 Refill(s), Pharmacy: [facility], DX:E11.9 Start Date: 01/18/17 Status: OrderedAccu-chek softclix lancets Accu-chek softclix lancets, See Instructions, Patient to use one lancet daily to check blood glucosefor E11.9. Uses One Touch Ultra glucometer., # 100 Each, 0 Refill(s), Pharmacy: [facility], Patient to use one lancet daily to dominique... Start Date: 09/09/16 Status: Orderedaspirin 325 mg, Daily, 0 Refill(s) Start Date: 11/30/13 Status: Orderedatenolol 100 mg oral tablet 100 mg 1 tabs, Oral, Daily, # 90 tabs, 1 Refill(s), Pharmacy: [id number], 1 tabs Oral Daily Start Date: 01/03/17 Status: Orderedlisinopril 20 mg oral tablet See Instructions, TAKE 1 TABLET EVERY DAY (DOSE CHANGE), # 90 tabs, eRx: [facility] Start Date: 02/09/17 Status: OrderedmetFORMIN 500 mg oral tablet 1,000 mg 2 tabs, Oral, BID, # 360 tabs, 1 Refill(s), Pharmacy: [facility], 2 tabsOral BID,x90 days Start Date: 04/14/16 Stop Date: 10/11/16 Status: Orderedmultivitamin 1 tabs, Oral, Daily, 0 Refill(s) Start Date: 01/04/14 Status: Ordered Results Hematology Most recent to oldest [Reference Range]: 1 WBC [4.8-10.8 10*3/uL] 9.3 10*3/uL (03/08/17 9:06 AM) RBC [4.60-6.20] 4.87 (03/08/17 9:06 AM) Hgb [14.0-18.0 gm/dL] 11.5 gm/dL *LOW* (03/08/17 9:06 AM) Hct [42.0-52.0 %] 37.2 % *LOW* (03/08/17 9:06 AM) MCV [82.0-99.0 fL] 76.4 fL *LOW* (03/08/17 9:06 AM) MCH [27.0-32.0 pg] 23.6 pg *LOW* (03/08/17: AM) MCHC [32.0-36.0 gm/dL] 30.9 gm/dL *LOW* (03/08/17 9:06 AM) RDW [11.5-14.5 %] 17.4 % *HI* (03/08/17:06 AM) Platelet [150-400 10*3/uL] 292 10*3/uL (03/08/17 9:06 AM) MPV [8.8-14.8 fL] 10.3 fL (03/08/17:06 AM) Immature Granulocytes [0.0-1.0 %] 0.2 % (03/08/17: AM) Neutrophils [51-75 %] 73 % (03/08/17:06 AM) Lymphocytes [20-46 %] 19 % *LOW* (03/08/17:06 AM) Monocytes [4-11 %] 5 % (03/08/17 9:06 AM) Eosinophils [0-4 %] 2 % (03/08/17:06 AM) Basophils [0-2 %] 0 % (03/08/17:06 AM) Neutro Absolute [1.90-7.00] 6.75 (03/08/17 9:06 AM) Lymph Absolute [0.80-3.30] 1.80 (03/08/17 9:06 AM) [place] Absolute [0.30-1.00] 0.48 (03/08/17 9:06 AM) Eos Absolute [0.00-0.50] 0.21 (03/08/17 9:06 AM) Baso Absolute [0.00-0.20] 0.02 (03/08/17:06 AM) Chemistry Most recent to oldest [Reference Range]: 1 Sodium Lvl [135-144 mEq/L] 142 mEq/L (03/08/17 9:06 AM) Potassium Lvl [3.5-5.2 mEq/L] 4.4 mEq/L (03/08/17 9:06 AM) Chloride [99-111 mEq/L] 110 mEq/L (03/08/17 9:06 AM) CO2 [23-31 mEq/L] 24 mEq/L (03/08/17 9:06 AM) AGAP [3-20 mEq/L] 8 mEq/L (03/08/17 9:06 AM) BUN [8-26 mg/dL] 16 mg/dL (03/08/17 9:06 AM) Glucose Lvl [70-99 mg/dL] 102 mg/dL *HI* (03/08/17:06 AM) Creatinine Lvl [0.72-1.25 mg/dL] 0.68 mg/dL *LOW* (03/08/17:06 AM) eGFR [>60 mL/min] >60 mL/min 1 (03/08/17:06 AM) Calcium Lvl [8.4-10.2 mg/dL] 8.9 mg/dL (03/08/17 9:06 AM) Albumin Lvl [3.4-4.8 gm/dL] 4.1 gm/dL (03/08/17:06 AM) Total Protein [6.0-7.6 gm/dL] 6.3 gm/dL (03/08/17 9:06 AM) Globulin [1.8-4.0 gm/dL] 2.2 gm/dL (03/08/17 9:06 AM) ALT [0-55 U/L] 14 U/L (03/08/17 9:06 AM) AST [5-34 U/L] 12 U/L (03/08/17:06 AM) Alk Phos [40-150 U/L] 121 U/L (03/08/17 9:06 AM) Bili Total [0.2-1.2 mg/dL] 0.8 mg/dL (03/08/17 9:06 AM) TSH with Reflex Free T4 [0.35-4.94] 1.01 (03/08/17 9:06 AM) Hgb A1c [4.1-5.6 %] 6.1 % *HI* (03/08/17 9:06 AM) eAvg Glucose 128.4 mg/dL (03/08/17 9:06 AM) 1Result Comment: Multiply eGFR results by 1.21 for race.Urinalysis Most recent to oldest [Reference Range]: 1 UA Color DkYellow (03/08/17 9:13 AM) UA Appear Clear (03/08/17 9:13 AM) UA pH [5.0-8.0] 5.5 (03/08/17 9:13 AM) UA Leuk Est [Negative] Negative (03/08/17 9:13 AM) UA Nitrite [Negative] Negative (03/08/17 9:13 AM) UA Protein [Negative] Trace *ABN* (03/08/17 9:13 AM) UA Glucose [Negative] Negative (03/08/17 9:13 AM) UA Ketones [Negative] Negative (03/08/17 9:13 AM) UA Urobilinogen [<1.0 mg/dL] 1.0 mg/dL (03/08/17 9:13 AM) UA Bili [Negative] Negative (03/08/17 9:13 AM) UA Blood [Negative] Negative (03/08/17 9:13 AM) UA Spec Grav [1.003-1.030] 1.021 (03/08/17 9:13 AM) Type Voided (03/08/17 9:13 AM) Immunizations Given and Recorded Vaccine Date Status Refusal Reason tetanus-diphth toxoids (Td) adult/adol 10/08/02 Given pneumococcal 23-polyvalent vaccine 10/08/02 Recorded Procedures Procedure Date Related Diagnosis Body Site Excision of benign lesion of skin of extremities1 11/30/13 Cholecystectomy 05/23/12 Bronch2 05/23/90 Lab mariela with IOC 1Neurofibroma left [id number]'s lung Social History Social History Type Response Smoking Status Former smoker; Type: Cigarettes; Tobacco use per day: 1/2 pack or more; Number of years: 4; Date Last Use: 1975 quit; entered on: 03/31/16 Assessment and Plan Extracted from: Title: Ambulatory Patient Education Author: Brandon Mejia MD Date: 03/08 Orthopedics Arthritis Arthritis is a term that is commonly used to refer to joint pain or joint disease. There are more than 100 types of arthritis. CAUSES The most common cause of this condition is wear and tear of a joint. Other causes include: Gout. Inflammation of a joint. An infection of a joint. Sprains and other injuries near the joint. A drug reaction or allergic reaction. In some cases, the cause may not be known. SYMPTOMS The main symptom of this condition is pain in the joint with movement. Other symptoms include: Redness, swelling, or stiffness at a joint. Warmth coming from the joint. Fever. Overall feeling of illness. DIAGNOSIS This condition may be diagnosed with a physical exam and tests, including: Blood tests. Urine tests. Imaging tests, such as MRI, X-rays, or a CT scan. Sometimes, fluid is removed from a joint for testing. TREATMENT Treatment for this condition may involve: Treatment of the cause, if it is known. Rest. Raising (elevating) the joint. Applying cold or hot packs to the joint. Medicines to improve symptoms and reduce inflammation. Injections of a steroid such as cortisone into the joint to help reduce pain and inflammation. Depending on the cause of your arthritis, you may need to make lifestyle changes to reduce stress on your joint. These changes may include exercising more and losing weight. HOME CARE INSTRUCTIONS Medicines Take ujwz-rff-frzgzqj and prescription medicines only as told by your health care provider. Do not take aspirin to relieve pain if gout is suspected. Activities Rest your joint if told by your health care provider. Rest is important when your disease is active and your joint feels painful, swollen, or stiff. Avoid activities that make the pain worse. It is important to balance activity with rest. Exercise your joint regularly with dvcjg-uk-pjyjcl exercises as told by your health care provider. Try doing low-impact exercise, such as: Swimming. Water aerobics. Biking. Walking. Joint Care If your joint is swollen, keep it elevated if told by your health care provider. If your joint feels stiff in the morning, try taking a warm shower. If directed, apply heat to the joint. If you have diabetes, do not apply heat without permission from your health care provider. Put a towel between the joint and the hot pack or heating pad. Leave the heat on the area for 2030 minutes. If directed, apply ice to the joint: Put ice in a plastic bag. Place a towel between your skin and the bag. Leave the ice on for 20 minutes, 23 times per day. Keep all follow-up visits as told by your health care provider. This is important. SEEK MEDICAL CARE IF: The pain gets worse. You have a fever. SEEK IMMEDIATE MEDICAL CARE IF: You develop severe joint pain, swelling, or redness. Many joints become painful and swollen. You develop severe back pain. You develop severe weakness in your leg. You cannot control your bladder or bowels. This information is not intended to replace advice given to you by your health care provider. Make sure you discuss any questions you have with your health care provider. Document Released: 06/16/2005 Document Revised: 08/30/2016 Document Reviewed: 08/04/2015 [employer] Patient Education 2017 [employer] No follow up information was provided. Extracted from: Title: Office Visit Note Author: Brandon Mejia MD Date: 03/08/17 Atrial fibrillation Newly found on EKG. No symptoms. No soa/arriaga. No hx of palpitations. They want to see Dr. Emperatriz Lux and will make an appointment. Continue ASA 81mg po daily for now. Has metoprolol for rate control at this time. Lab pending. To [facility] for anything concerning. Benign essential hypertension This issue was reviewed, appears stable, and current therapy continued except as mentioned. Appropriate lab was reviewed from the most recent appropriate entry and lab was ordered if needed in the cp oe/nursing orders, and follow up recommended generally in 90 days and no later then six months. The patient reports their blood pressure has been stable at home and is not having any significant or related problems. There has been no chest pain, chest pressure, soa/arriaga. The patient had an elevated blood pressure reading and is to monitor their bp and call with a report if consistently > 140/90. Refill meds. Conclusions: The study is technically limited due to patient body habitus. The left ventricular chamber size is normal. The ejection fraction is calculated at 77%. The aortic valve appears trileaflet.the valve appears normal There is a trace of mitral regurgitation. There is a trace tricuspid regurgitation. The pulmonic arterial systolic pressure is estimated at 36 mmHg. [1] Ordered: CBC w/ Differential Comprehensive Metabolic Panel Urinalysis with Culture if Indicated XR Chest 2 Views Controlled diabetes mellitus The patient was notified for the need for regular quarterly f/u of their diabetes. Further any pertinent medication, supplies, etc were refilled. Additionally, they are to have annual eye exams, foot exams, and regular care. Lab pending. Ordered: Hemoglobin A1c Encounter for Hemoccult screening Hemoccult was positive. To Dr. LAW for colonoscopy/consultation. To [facility] if BRBPR occurs. Bustamante's lung This issue was reviewed, appears stable, and current therapy continued except as mentioned. Appropriate lab was reviewed from the most recent appropriate entry and lab was ordered if needed in the cp oe/nursing orders, and follow up recommended generally in 90 days and no later then six months. Overnight oximetry May 2016 was normal and there were NO desaturationsnoted on the report. Hip pain, right Seeing Dr. Velarde. Obesity Diet and exercise as tolerated and feasible. Consider medication when interested. The patient has family members present who are agreeable with today's plan and have no additional concerns or requests. here. Preop examination EKG shows new onset afib of undetermined length. No soa/arriaga. Heis NOT cleared for surgery. He needs to seeCardiology for evalutation. IMPRESSION: 1. There is no radiographic evidence of acute cardiopulmonary process. [2] Ordered: XR Chest 2 Views 60 minutes were utilized in care and coordination for this patient. Greater then 50% of the time was used for counseling and/or coordination of the patients care.
--- OUTSIDE RECORDS SUMMARY | 2017-11-21 15:06 | External Medical Summary | Referral Summary ---
:1950 Author Organization [facility] [place] [phone] Care Team Providers Name Role Phone Brandon Mejia Primary Care Physician Encounter VC Date(s): 12/07/16 - 12/07/16 [facility] [place] [phone] Discharge Diagnosis: Obesity Discharge Diagnosis: Benign essential hypertension Discharge Diagnosis: Chronic pain of right hip Discharge Diagnosis: Knee pain, right Discharge Diagnosis: Chronic pain of left knee Discharge Disposition: 01-Home or Self Care Attending Physician: Bryanna Hidalgo PA-C Admitting Physician: Bryanna Hidalgo PA-C Vital Signs Most recent to oldest [Reference Range]: 1 Temperature Tympanic [36.6-38.1 degC] 35.5 degC *LOW* (12/07/16 8:06 AM) Peripheral Pulse Rate [60-100 bpm] 78 bpm (12/07/16 8:06 AM) Blood Pressure [90-140/60-90 mmHg] 150/96 mmHg *HI* (12/07/16 8:06 AM) SpO2 96 % (12/07/16 8:06 AM) Problem List Condition Effective Dates Status [...] E11.9, # 100 Each, 0 Refill(s), Pharmacy: [facility], patient to use One Touch Ultra to check blood glucose o... Start Date: 09/09/16 Status: OrderedAccu-chek softclix lancets Accu-chek softclix lancets, See Instructions, Patient to use one lancet daily to check blood glucosefor E11.9. Uses One Touch Ultra glucometer., # 100 Each, 0 Refill(s), Pharmacy: [facility], Patient to use one lancet daily to dominique... Start Date: 09/09/16 Status: Orderedaspirin 325 mg, Daily, 0 Refill(s) Start Date: 11/30/13 Status: Orderedatenolol 100 mg oral tablet 100 mg 1 tabs, Oral, Daily, # 90 tabs, 1 Refill(s), Pharmacy: [facility], 1 tabs Oral Daily Start Date: 04/14/16 Status: Orderedlisinopril 20 mg oral tablet 20 mg 1 tabs, Oral, Daily, # 90 tabs, 0 Refill(s), Pharmacy: [facility] Start Date: 12/07/16 Status: OrderedmetFORMIN 500 mg oral tablet 1,000 mg 2 tabs, Oral, BID, # 360 tabs, 1 Refill(s), Pharmacy: [facility], 2 tabsOral BID,x90 days Start Date: 04/14/16 Stop Date: 10/11/16 Status: Orderedmultivitamin 1 tabs, Oral, Daily, 0 Refill(s) Start Date: 01/04/14 Status: Ordered Results No data available for this section Immunizations Given and Recorded Vaccine Date Status Refusal Reason pneumococcal 23-polyvalent vaccine 10/08/02 Recorded tetanus-diphth toxoids (Td) adult/adol 10/08/02 Given Procedures Procedure Date Related Diagnosis Body Site Excision of benign lesion of skin of extremities1 11/30/13 Cholecystectomy 05/23/12 Bronch2 05/23/90 Lab mariela with IOC 1Neurofibroma left [id number]'s lung Social History Social History Type Response Smoking Status Former smoker; Type: Cigarettes; Tobacco use per day: 1/2 pack or more; Number of years: 4; Date Last Use: 1975 quit Assessment and Plan Extracted from: Title: Office Visit Note- B knee inj, Author: Bryanna Hidalgo PA-C Date : 12/07/16 R hip pain, HTN Assessment/Plan Benign essential hypertension I advised pt to double his Lisinopril at this time, and monitor BP's at home. When I went to refill, I noticed that we have not filled some of his medications since March for 6 months. I suspect t hat he may not be taking his medications routinely. He has appt for med ck in Feb, and advised to f/u at that time. Sooner if BP's are consistently >140/ 90 at home. Ordered: lisinopril, 20 mg 1 tabs, Oral, Daily, # 90 tabs, 0 Refill(s), Pharmacy: [facility] Office Visit Level 4 Est 98787 Chronic pain of left knee L knee injection today. Will also get x-ray today. D/w pt that if no relief with injection, will need to get MRI and ortho consult. Ordered: Office Visit Level 4 Est 04225 XR Knee Complete Left Chronic pain of right hip May be more of trochanteric bursitis. Will get x-ray today. Will need referral if wanting any type of therapy/injection. Ordered: Office Visit Level 4 Est 24861 XR Hip w Pelvis when perform 2-3 vws RT Knee pain, right R knee injection today as well. I discussed with pt that if he is not getting relief with this injection, he will need to go to ortho. Discussed the potentially worsening of OA with repeated steroid injections. Ordered: Office Visit Level 4 Est 93493 Obesity Has lost some weight, butBMI still 41. Continue to work on weight loss. RTC if needing assistance with this. Ordered: Office Visit Level 4 Est 80496
--- OUTSIDE RECORDS SUMMARY | 2017-11-21 15:06 | External Medical Summary | Referral Summary ---
:1950 Author Organization [facility] [place] [phone] Care Team Providers Name Role Phone Brandon Mejia Primary Care Physician Encounter VC Date(s): 09/06/16 - 09/06/16 [facility] [place] [phone] [place] Discharge Diagnosis: Obesity Discharge Diagnosis: Bustamante's lung Discharge Diagnosis: Benign essential hypertension Discharge Diagnosis: Knee pain, right Discharge Diagnosis: Controlled diabetes mellitus Discharge Disposition: 01-Home or Self Care Attending Physician: Brandon Mejia MD Vital Signs Most recent to oldest [Reference Range]: 1 Blood Pressure [90-140/60-90 mmHg] 160/100 mmHg *HI* (09/06/16 9:48 AM) Problem List Condition Effective Dates Status [...] Daily, # 90 tabs, 1 Refill(s), Pharmacy: [facility], 1 tabs Oral Daily Start Date: 04/14/16 Status: OrderedLancets Lancets, See Instructions, Patient to use one lancet daily to check blood glucose for E11.9. Uses One Touch Ultra glucometer., # 100 Each, 0 Refill(s), Pharmacy: [facility], Patientto use one lancet daily to check blood glucose fo... Start Date: 09/06/16 Status: Orderedlisinopril 10 mg oral tablet 10 mg 1 tabs, Oral, Daily, # 90 tabs, 1 Refill(s), Pharmacy: [facility], 1 tabs Oral Daily Start Date: 04/14/16 Status: OrderedmetFORMIN 500 mg oral tablet 1,000 mg 2 tabs, Oral, BID, # 360 tabs, 1 Refill(s), Pharmacy: [facility], 2 tabsOral BID,x90 days Start Date: 04/14/16 Stop Date: 10/11/16 Status: Orderedmultivitamin 1 tabs, Oral, Daily, 0 Refill(s) Start Date: 01/04/14 Status: OrderedOneTouch Ultra Glucometer kit OneTouch Ultra Glucometer kit, See Instructions, Patient to check blood glucose once per day for E11.9, # 1 Each, 0 Refill(s), Pharmacy: [facility], Patient to check blood glucose once per day for E11.9 Start Date: 09/06/16 Status: Orderedtest strips test strips, See Instructions, patient to use One Touch Ultra to check blood glucose once per day for E11.9, # 100 Each, 0 Refill(s), Pharmacy: [facility], patient to use One Touch Ultra to check blood glucose once per day for E11.9 Start Date: 09/06/16 Status: Ordered Results Hematology Most recent to oldest [Reference Range]: 1 WBC [4.8-10.8 10*3/uL] 6.0 10*3/uL (09/06/16 10:20 AM) RBC [4.60-6.20] 4.69 (09/06/16 10:20 AM) Hgb [14.0-18.0 gm/dL] 11.2 gm/dL *LOW* (09/06/16 10:20 AM) Hct [42.0-52.0 %] 35.3 % *LOW* (09/06/16 10:20 AM) MCV [82.0-99.0 fL] 75.3 fL *LOW* (09/06/16 10:20 AM) MCH [27.0-32.0 pg] 23.9 pg *LOW* (09/06/16 10:20 AM) MCHC [32.0-36.0 gm/dL] 31.7 gm/dL *LOW* (09/06/16 10:20 AM) RDW [11.5-14.5 %] 14.9 % *HI* (09/06/16 10:20 AM) Platelet [150-400 10*3/uL] 222 10*3/uL (09/06/16 10:20 AM) MPV [8.8-14.8 fL] 10.7 fL (09/06/16 10:20 AM) Immature Granulocytes [0.0-1.0 %] 0.3 % (09/06/16 10:20 AM) Neutrophils [51-75 %] 68 % (09/06/16 10:20 AM) Lymphocytes [20-46 %] 22 % (09/06/16 10:20 AM) Monocytes [4-11 %] 6 % (09/06/16:20 AM) Eosinophils [0-4 %] 4 % (09/06/16:20 AM) Basophils [0-2 %] 0 % (09/06/16 10:20 AM) Neutro Absolute [1.90-7.00] 4.10 (09/06/16 10:20 AM) Lymph Absolute [0.80-3.30] 1.33 (09/06/16 10:20 AM) [place] Absolute [0.30-1.00] 0.36 (09/06/16 10:20 AM) Eos Absolute [0.00-0.50] 0.22 (09/06/16 10:20 AM) Baso Absolute [0.00-0.20] 0.02 (09/06/16 10:20 AM) Chemistry Most recent to oldest [Reference Range]: 1 Sodium Lvl [135-144 mEq/L] 140 mEq/L (09/06/16 10:20 AM) Potassium Lvl [3.5-5.2 mEq/L] 4.6 mEq/L (09/06/16 10:20 AM) Chloride [99-111 mEq/L] 106 mEq/L (09/06/16 10:20 AM) CO2 [23-31 mEq/L] 25 mEq/L (09/06/16 10:20 AM) AGAP [3-20 mEq/L] 9 mEq/L (09/06/16 10:20 AM) BUN [8-26 mg/dL] 13 mg/dL (09/06/16 10:20 AM) Glucose Lvl [70-99 mg/dL] 96 mg/dL (09/06/16 10:20 AM) Creatinine Lvl [0.72-1.25 mg/dL] 0.73 mg/dL (09/06/16 10:20 AM) eGFR [>60 mL/min] >60 mL/min 1 (09/06/16:20 AM) Calcium Lvl [8.4-10.2 mg/dL] 8.7 mg/dL (09/06/16 10:20 AM) Albumin Lvl [3.4-4.8 gm/dL] 4.0 gm/dL (09/06/16:20 AM) Total Protein [6.0-7.6 gm/dL] 6.4 gm/dL (09/06/16:20 AM) Globulin [1.8-4.0 gm/dL] 2.4 gm/dL (09/06/16 10:20 AM) ALT [0-55 U/L] 6 U/L (09/06/16 10:20 AM) AST [5-34 U/L] 12 U/L (09/06/16:20 AM) Alk Phos [40-150 U/L] 102 U/L (09/06/16:20 AM) Bili Total [0.2-1.2 mg/dL] 0.6 mg/dL (09/06/16 10:20 AM) Hgb A1c [4.1-5.6 %] 6.2 % *HI* (09/06/16 10:20 AM) eAvg Glucose 131.2 mg/dL (09/06/16 10:20 AM) 1Result Comment: Multiply eGFR results by 1.21 for race.Urinalysis Most recent to oldest [Reference Range]: 1 UA Color Yellow (09/06/16 10:27 AM) UA Appear Clear (09/06/16 10:27 AM) UA pH [5.0-8.0] 6.0 (09/06/16 10:27 AM) UA Leuk Est [Negative] Negative (09/06/16 10:27 AM) UA Nitrite [Negative] Negative (09/06/16 10:27 AM) UA Protein [Negative] Negative (09/06/16 10:27 AM) UA Glucose [Negative] Negative (09/06/16 10:27 AM) UA Ketones [Negative] Negative (09/06/16 10:27 AM) UA Urobilinogen [<1.0 mg/dL] 2.0 mg/dL *ABN* (09/06/16 10:27 AM) UA Bili [Negative] Negative (09/06/16 10:27 AM) UA Blood [Negative] Negative (09/06/16 10:27 AM) UA Spec Grav [1.003-1.030] 1.013 (09/06/16 10:27 AM) Type Voided (09/06/16 10:27 AM) Immunizations Given and Recorded Vaccine Date Status Refusal Reason pneumococcal 23-polyvalent vaccine 10/08/02 Recorded tetanus-diphth toxoids (Td) adult/adol 10/08/02 Given Procedures Procedure Date Related Diagnosis Body Site Excision of benign lesion of skin of extremities1 11/30/13 Cholecystectomy 05/23/12 Bronch2 05/23/90 Lab mariela with IOC 1Neurofibroma left adhy6bztztn's lung Social History Social History Type Response Smoking Status Former smoker; Type: Cigarettes; Tobacco use per day: 1/2 pack or more; Number of years: 4; Date Last Use: 1975 quit Assessment and Plan Extracted from: Title: Ambulatory Patient Education Author: Brnadon Mejia MD Date: Musculoskeletal Arthritis Arthritis is a term that is [...] losing weight. HOME CARE INSTRUCTIONS Medicines Take jaoh-fom-bmnjlda and prescription medicines only as told by [...] with rest. Exercise your joint regularly with toqmb-rc-zrsspg exercises as told by your health care [...] care provider. Document Released: 06/16/2005 Document Revised: 04/19/2016 Document Reviewed: 08/04/2015 [employer] Patient Education 2016 [employer] No follow up information was provided. Extracted from: Title: Office Visit Note Author: Brandon Mejia MD Date: 09/06/16 Assessment/Plan Benign essential hypertension This issue was reviewed, appears stable, and current therapy continued except as mentioned. Appropriate lab was reviewed from the most recent appropriate entry and lab was ordered if needed in the c trae/nursing orders, and follow up recommended generally in [...] with a report if consistently > 140/90. Conclusions: The study is technically limited due to patient body habitus. The left ventricular chamber size is normal. The ejection fraction is calculated at 77%. The aortic valve appears trileaflet.the valve appears normal There is a trace of mitral regurgitation. There is a trace tricuspid regurgitation. The pulmonic arterial systolic pressure is estimated at 36 mmHg. The study is technically challenged but appears probably normal [1] Ordered: CBC w/ Differential Comprehensive Metabolic Panel Urinalysis with Culture if Indicated Controlled diabetes mellitus The patient was notified for the need for regular quarterly f/u of their diabetes. Further any pertinent medication, supplies, etc were refilled. Additionally, they are to have annual eye exams, foot exams, and regular care. Glucometer sample offered and declined. Script sent to [facility]. Lab pending. Bustamante's lung This issue was reviewed, appears stable, and current therapy continued except as mentioned. Appropriate lab was reviewed from the most recent appropriate entry and lab was ordered if needed in the c trae/nursing orders, and follow up recommended generally in 90 days and no later then six months. On disability. IMPRESSION: 1. There is no radiographic evidence of acute cardiopulmonary process. [2] Knee pain, right Stable. To for injection. IMPRESSION: Moderately advanced degenerative joint disease with no acute abnormality seen. [3] Consult offered and declined. Obesity Diet and exercise as tolerated and feasible. Consider medication when interested. The patient has family members present who are agreeable with today's plan and have no additional concerns or requests. here.
--- OUTSIDE RECORDS SUMMARY | 2017-11-21 15:06 | External Medical Summary | Referral Summary ---
:1950 Author Organization [facility] [place] [phone] Care Team Providers Name Role Phone Brandon Mejia Primary Care Physician Encounter VC Date(s): 01/08/15 - 01/08/15 [facility] [address] [place] [phone] [place] Discharge Disposition: [...] Daily, # 90 tabs, 1 Refill(s), Pharmacy: [facility], 1 tabs Oral Daily Start Date: 07/11/15 Status: OrderedJardiance 10 mg oral tablet 10 mg 1 tabs, Oral, qAM, # 30 tabs, 0 Refill(s), Pharmacy: [facility], 1 tabs Oral qAM Start Date: 07/11/15 Status: OrderedmetFORMIN 500 mg oral tablet 1,000 mg 2 tabs, Oral, BID, # 360 tabs, 1 Refill(s), Pharmacy: [facility], 2 tabsOral BID,x90 days Start Date: 07/11/15 Stop Date: 01/07/16 Status: Orderedmultivitamin 1 tabs, Oral, Daily, 0 [...] [0.80-3.30 10*3] 1.49 10*3 (01/08/15 8:25 AM) [place] Absolute [0.30-1.00 10*3] 0.30 10*3 (01/08/15 8:25 [...] 05/23/90 Lab mariela with IOC 1Neurofibroma left dlpl0tnzbht's lung Social History Social History Type Response [...] 08/05/2009 Document Revised: 05/14/2014 Document Reviewed: 02/20/2014 [facility] Patient Information 2015 [employer]. This information is not intended to replace [...] Daily, # 90 tabs, 1 Refill(s), Pharmacy: [facility], 1 tabs Oral Daily
--- OUTSIDE RECORDS SUMMARY | 2017-11-21 15:06 | External Medical Summary | Referral Summary ---
:1950 Author Organization [facility] [place] [phone] Care Team Providers Name Role Phone Brandon Mejia Primary Care Physician Encounter VC Date(s): 02/19/16 - 02/19/16 [facility] [place] [phone] [place] Discharge Diagnosis: Controlled diabetes mellitus Discharge Diagnosis: Obesity Discharge Diagnosis: Bustamante's lung Discharge Diagnosis: Knee pain, right Discharge Disposition: 01-Home or Self Care Attending Physician: Brandon Mejia MD Admitting Physician: Brandon Mejia MD Vital Signs Most recent to oldest [Reference Range]: 1 Blood Pressure [90-140/60-90 mmHg] 160/100 mmHg *HI* (02/19/16 8:16 AM) Problem List Condition Effective Dates Status [...] Daily, # 90 tabs, 1 Refill(s), Pharmacy: [facility], 1 tabs Oral Daily Start Date: 01/09/16 Status: Orderedlisinopril 10 mg oral tablet 10 mg 1 tabs, Oral, Daily, # 30 tabs, 0 Refill(s), Pharmacy: [facility], 1 tabs Oral Daily Start Date: 02/19/16 Status: OrderedmetFORMIN 500 mg oral tablet 1,000 mg 2 tabs, Oral, BID, # 360 tabs, 1 Refill(s), Pharmacy: [facility], 2 tabsOral BID,x90 days Start Date: 01/09/16 Stop Date: 07/07/16 Status: Orderedmultivitamin 1 tabs, Oral, Daily, 0 Refill(s) Start Date: 01/04/14 Status: Ordered Results No data available for this section Immunizations Vaccine Date Refusal Reason pneumococcal 23-polyvalent vaccine 10/08/02 tetanus-diphth toxoids (Td) adult/adol 10/08/02 Procedures Procedure Date Related Diagnosis Body Site Excision of benign lesion of skin of extremities1 11/30/13 Cholecystectomy 05/23/12 Bronch2 05/23/90 Lab mariela with IOC 1Neurofibroma left gftl8drvdqm's lung Social History Social History Type Response Smoking Status Former smoker Assessment and Plan Extracted from: Title: Ambulatory Patient Education Author: Brandon Mejia MD Date: Family Medicine Arthritis, Nonspecific Arthritis is inflammation of a joint. This usually means pain, redness, warmth or swelling are present. One or more joints may be involved. There are a number of types of arthritis. Your caregiver may n ot be able to tell what type of arthritis you have right away. CAUSES The most common cause of arthritis is the wear and tear on the joint ( osteoarthritis). This causes damage to the cartilage, which can break down over time. The knees, hips, back and neck are most often affected by this type of arthritis. Other types of arthritis and common causes of joint pain include: Sprains and other injuries near the joint. Sometimes minor sprains and injuries cause pain and swelling that develop hours later. Rheumatoid arthritis. This affects hands, feet and knees. It usually affects both sides of your body at the same time. It is often associated with chronic ailments, fever, weight loss and general weakness. Crystal arthritis. Gout and pseudo gout can cause occasional acute severe pain, redness and swelling in the foot, ankle, or knee. Infectious arthritis. Bacteria can get into a joint through a break in overlying skin. This can cause infection of the joint. Bacteria and viruses can also spread through the blood and affect your joints. Drug, infectious and allergy reactions. Sometimes joints can become mildly painful and slightly swollen with these types of illnesses. SYMPTOMS Pain is the main symptom. Your joint or joints can also be red, swollen and warm or hot to the touch. You may have a fever with certain types of arthritis, or even feel overall ill. The joint with arthritis will hurt with movement. Stiffness is present with some types of arthritis. DIAGNOSIS Your caregiver will suspect arthritis based on your description of your symptoms and on your exam. Testing may be needed to find the type of arthritis: Blood and sometimes urine tests. X-ray tests and sometimes CT or MRI scans. Removal of fluid from the joint (arthrocentesis) is done to check for bacteria, crystals or other causes. Your caregiver (or a specialist) will numb the area over the joint with a local anestheti c, and use a needle to remove joint fluid for examination. This procedure is only minimally uncomfortable. Even with these tests, your caregiver may not be able to tell what kind of arthritis you have. Consultation with a specialist (manager architecture) may be helpful. TREATMENT Your caregiver will discuss with you treatment specific to your type of arthritis. If the specific type cannot be determined, then the following general recommendations may apply. Treatment of severe joint pain includes: Rest. Elevation. Anti-inflammatory medication (for example, ibuprofen) may be prescribed. Avoiding activities that cause increased pain. Only take bgrg-zkv-teokjjw or prescription medicines for pain and discomfort as recommended by your caregiver. Cold packs over an inflamed joint may be used for 10 to 15 minutes every hour. Hot packs sometimes feel better, but do not use overnight. Do not use hot packs if you are diabetic without your caregiver's permission. A cortisone shot into arthritic joints may help reduce pain and swelling. Any acute arthritis that gets worse over the next 1 to 2 days needs to be looked at to be sure there is no joint infection. Long-term arthritis treatment involves modifying activities and lifestyle to reduce joint stress jarring. This can include weight loss. Also, exercise is needed to nourish the joint cartilage and remove waste. This helps keep the muscles around the joint strong. HOME CARE INSTRUCTIONS Do not take aspirin to relieve pain if gout is suspected. This elevates uric acid levels. Only take yzyx-jzi-eyhkvlx or prescription medicines for pain, discomfort or fever as directed by your caregiver. Rest the joint as much as possible. If your joint is swollen, keep it elevated. Use crutches if the painful joint is in your leg. Drinking plenty of fluids may help for certain types of arthritis. Follow your caregiver's dietary instructions. Try low-impact exercise such as: Swimming. Water aerobics. Biking. Walking. Morning stiffness is often relieved by a warm shower. Put your joints through regular zrjag-zh-uslikb. SEEK MEDICAL CARE IF: You do not feel better in 24 hours or are getting worse. You have side effects to medications, or are not getting better with treatment. SEEK IMMEDIATE MEDICAL CARE IF: You have a fever. You develop severe joint pain, swelling or redness. Many joints are involved and become painful and swollen. There is severe back pain and/or leg weakness. You have loss of bowel or bladder control. This information is not intended to replace advice given to you by your health care provider. Make sure you discuss any questions you have with your health care provider. Document Released: 06/16/2005 Document Revised: 05/30/2015 Document Reviewed: 07/02/2009 [facility] Patient Information 2016 [employer]. No follow up information was provided. Extracted from: Title: Office Visit Note Author: Brandon Mejia MD Date: 02/19/16 Assessment/Plan Controlled diabetes mellitus The patient was notified for the need for regular quarterly f/u of their diabetes. Further any pertinent medication, supplies, etc were refilled. Additionally, they are to have annual eye exams, foot exams, and regular care. Lab stable. Bustamante's lung This issue was reviewed, appears stable, and current therapy continued except as mentioned. Appropriate lab was reviewed from the most recent appropriate entry and lab was ordered if n eeded in the cpoe/nursing orders, and follow up recommended generally in 90 days and no later then six months. We discussed several options for treatment for this condition. The patient declined any changes or other treatments at this time. To Pulmonology or consider CT/medication when willing. Knee pain, right The patient's issue is nearly or completely resolved. There is no further issues or testing desired by them at this time. IMPRESSION: Moderately advanced degenerative joint disease with no acute abnormality seen [1] Obesity Diet and exercise as tolerated and feasible. Consider medication when interested. Please make the medication adjustments we discussed. Please notify the office for any difficulties or concerns. Cerner not working and information reviewed from [facility]/Outside. [employer] not working for orders or A/P at this time. The patient had an elevated blood pressure reading and is to monitor their bp and call with a report if consistently > 140/90. Add lisinopril 10mg po qhs for bp control and possible mild chf. After much discussion he preferred a Cardiology consult in place of an echo and other work up. RTC in 90 days or sooner prn.
--- OUTSIDE RECORDS SUMMARY | 2017-11-21 15:06 | External Medical Summary | Referral Summary ---
:1950 Author Organization [facility] [place] [id number] Care Team Providers Name Role Phone Brandon Mejia Primary Care Physician Encounter VC Date(s): 01/09/16 - 01/09/16 [facility] [address] [place] [phone] [phone] Discharge Disposition: 01-Home or Self Care Attending Physician: Brandon Mejia MD Admitting Physician: Brandon Mejia MD Vital Signs Most recent to oldest [Reference Range]: 1 Blood Pressure [90-140/60-90 mmHg] 160/90 mmHg *HI* (01/09/16 7:58 AM) Problem List Condition Effective Dates Status [...] Daily, # 90 tabs, 1 Refill(s), Pharmacy: [facility], 1 tabs Oral Daily Start Date: 01/09/16 Status: OrderedmetFORMIN 500 mg oral tablet 1,000 mg 2 tabs, Oral, BID, # 360 tabs, 1 Refill(s), Pharmacy: [facility], 2 tabsOral BID,x90 days Start Date: 01/09/16 Stop Date: 07/07/16 Status: Orderedmultivitamin 1 tabs, Oral, Daily, 0 Refill(s) Start Date: 01/04/14 Status: Ordered Results Hematology Most recent to oldest [Reference Range]: 1 WBC [4.8-10.8 10*3/uL] 5.3 10*3/uL (01/09/16 8:30 AM) RBC [4.60-6.20] 4.48 *LOW* (01/09/16 8:30 AM) Hgb [14.0-18.0 gm/dL] 11.7 gm/dL *LOW* (01/09/16 8:30 AM) Hct [42.0-52.0 %] 35.2 % *LOW* (01/09/16 8:30 AM) MCV [82.0-99.0 fL] 78.6 fL *LOW* (01/09/16 8:30 AM) MCH [27.0-32.0 pg] 26.1 pg *LOW* (01/09/16 8:30 AM) MCHC [32.0-36.0 gm/dL] 33.2 gm/dL (01/09/16 8:30 AM) RDW [11.5-14.5 %] 15.4 % *HI* (01/09/16 8:30 AM) Platelet [150-400 10*3/uL] 185 10*3/uL (01/09/16 8:30 AM) MPV [8.8-14.8 fL] 10.6 fL (01/09/16 8:30 AM) Immature Granulocytes [0.0-1.0 %] 0.0 % (01/09/16 8:30 AM) Neutrophils [51-75 %] 69 % (01/09/16 8:30 AM) Lymphocytes [20-46 %] 21 % (01/09/16 8:30 AM) Monocytes [4-11 %] 6 % (01/09/16 8:30 AM) Eosinophils [0-4 %] 4 % (01/09/16 8:30 AM) Basophils [0-2 %] 0 % (01/09/16 8:30 AM) Neutro Absolute [1.90-7.00 10*3] 3.67 10*3 (01/09/16 8:30 AM) Lymph Absolute [0.80-3.30 10*3] 1.09 10*3 (01/09/16 8:30 AM) [place] Absolute [0.30-1.00 10*3] 0.31 10*3 (01/09/16 8:30 AM) Eos Absolute [0.00-0.50 10*3] 0.22 10*3 (01/09/16 8:30 AM) Baso Absolute [0.00-0.20 10*3] 0.01 10*3 (01/09/16 8:30 AM) Chemistry Most recent to oldest [Reference Range]: 1 Sodium Lvl [135-144 mEq/L] 141 mEq/L (01/09/16 8:30 AM) Potassium Lvl [3.5-5.2 mEq/L] 4.6 mEq/L (01/09/16 8:30 AM) Chloride [99-111 mEq/L] 109 mEq/L (01/09/16 8:30 AM) CO2 [23-31 mEq/L] 25 mEq/L (01/09/16 8:30 AM) AGAP [3-20] 7 (01/09/16 8:30 AM) BUN [8-26 mg/dL] 10 mg/dL (01/09/16 8:30 AM) Glucose Lvl [70-99 mg/dL] 102 mg/dL *HI* (01/09/16 8:30 AM) Creatinine Lvl [0.72-1.25 mg/dL] 0.67 mg/dL *LOW* (01/09/16 8:30 AM) eGFR [>60 mL/min] >60 mL/min 1 (01/09/16 8:30 AM) Calcium Lvl [8.9-10.5 mg/dL] 8.7 mg/dL *LOW* (01/09/16 8:30 AM) Albumin Lvl [3.4-4.8 gm/dL] 4.0 gm/dL (01/09/16 8:30 AM) Total Protein [6.0-7.6 gm/dL] 6.0 gm/dL 2 (01/09/16 8:30 AM) Globulin [1.8-4.0 gm/dL] 2.0 gm/dL (01/09/16 8:30 AM) ALT [0-55 U/L] 21 U/L (01/09/16 8:30 AM) AST [5-34 U/L] 16 U/L (01/09/16 8:30 AM) Alk Phos [40-150 U/L] 114 U/L (01/09/16 8:30 AM) Bili Total [0.2-1.2 mg/dL] 0.6 mg/dL (01/09/16 8:30 AM) BNP [0-99 pg/mL] 261 pg/mL *HI* (01/09/16 8:30 AM) Hgb A1c [4.1-5.6 %] 6.1 % *HI* (01/09/16 8:30 AM) eAvg Glucose 128.4 mg/dL (01/09/16 8:30 AM) 1Result Comment: Multiply eGFR results by 1.21 for race.2Result Comment: Please note new reference range for adult Protein.Urinalysis Most recent to oldest [Reference Range]: 1 UA Color Yellow (01/09/16 8:40 AM) UA Appear Clear (01/09/16 8:40 AM) UA pH [5.0-8.0] 6.5 (01/09/16 8:40 AM) UA Leuk Est [Negative] Negative (01/09/16 8:40 AM) UA Nitrite [Negative] Negative (01/09/16 8:40 AM) UA Protein [Negative] Negative (01/09/16 8:40 AM) UA Glucose [Negative] Negative (01/09/16 8:40 AM) UA Ketones [Negative] Negative (01/09/16 8:40 AM) UA Urobilinogen [<1.0 mg/dL] 1.0 mg/dL (01/09/16 8:40 AM) UA Bili [Negative] Negative (01/09/16 8:40 AM) UA Blood [Negative] Negative (01/09/16 8:40 AM) UA Spec Grav [1.003-1.030] 1.011 (01/09/16 8:40 AM) Type Voided (01/09/16 8:40 AM) Immunizations Vaccine Date Refusal Reason pneumococcal 23-polyvalent vaccine 10/08/02 tetanus-diphth toxoids (Td) adult/adol 10/08/02 Procedures Procedure Date Related Diagnosis Body Site Excision of benign lesion of skin of extremities1 11/30/13 Cholecystectomy 05/23/12 Bronch2 05/23/90 Lab mariela with IOC 1Neurofibroma left [id number]'s lung Social History Social History Type Response Smoking Status Former smoker Assessment and Plan Extracted from: Title: Ambulatory Patient Education Author: Brandon Mejia MD Date: Family Medicine Blood Glucose Monitoring, Adult Monitoring your blood glucose (also know as blood sugar) helps you to manage your diabetes. It also helps you and your health care provider monitor your diabetes and determine how well your treatment plan is working. WHY SHOULD YOU MONITOR YOUR BLOOD GLUCOSE? It can help you understand how food, exercise, and medicine affect your blood glucose. It allows you to know what your blood glucose is at any given moment. You can quickly tell if you are having low blood glucose (hypoglycemia) or high blood glucose (hyperglycemia). It can help you and your health care provider know how to adjust your medicines. It can help you understand how to manage an illness or adjust medicine for exercise. WHEN SHOULD YOU TEST? Your health care provider will help you decide how often you should check your blood glucose. This may depend on the type of diabetes you have, your diabetes control, or the types of medicines you are t aking. Be sure to write down all of your blood glucose readings so that this information can be reviewed with your health care provider. See below for examples of testing times that your health care provider may suggest. Type 1 Diabetes Test at least 2 times per day if your diabetes is well controlled, if you are using an insulin pump, or if you perform multiple daily injections. If your diabetes is not well controlled or if you are sick, you may need to test more often. It is a good idea to also test: Before every insulin injection. Before and after exercise. Between meals and 2 hours after a meal. Occasionally between 2:00 a.m. and 3:00 a.m. Type 2 Diabetes If you are taking insulin, test at least 2 times per day. However, it is best to test before every insulin injection. If you take medicines by mouth (orally), test 2 times a day. If you are on a controlled diet, test once a day. If your diabetes is not well controlled or if you are sick, you may need to monitor more often. HOW TO MONITOR YOUR BLOOD GLUCOSE Supplies Needed Blood glucose meter. Test strips for your meter. Each meter has its own strips. You must use the strips that go with your own meter. A pricking needle (lancet). A device that holds the lancet (lancing device). A journal or log book to write down your results. Procedure Wash your hands with soap and water. Alcohol is not preferred. Prick the side of your finger (not the tip) with the lancet. Gently milk the finger until a small drop of blood appears. Follow the instructions that come with your meter for inserting the test strip, applying blood to the strip, and using your blood glucose meter. Other Areas to Get Blood for Testing Some meters allow you to use other areas of your body (other than your finger) to test your blood. These areas are called alternative sites. The most common alternative sites are: The forearm. The thigh. The back area of the lower leg. The palm of the hand. The blood flow in these areas is slower. Therefore, the blood glucose values you get may be delayed, and the numbers are different from what you would get from your fingers. Do not use alternative sites if you think you are having hypoglycemia. Your reading will not be accurate. Always use a finger if you are having hypoglycemia. Also, if you cannot feel your lows (hypoglycemia unawareness), always use your fingers for your blood glucose checks. ADDITIONAL TIPS FOR GLUCOSE MONITORING Do not reuse lancets. Always carry your supplies with you. All blood glucose meters have a 24-hour "hotline" number to call if you have questions or need help. Adjust (calibrate) your blood glucose meter with a control solution after finishing a few boxes of strips. BLOOD GLUCOSE RECORD KEEPING It is a good idea to keep a daily record or log of your blood glucose readings. Most glucose meters, if not all, keep your glucose records stored in the meter. Some meters come with the ability to downl oad your records to your home computer. Keeping a record of your blood glucose readings is especially helpful if you are wanting to look for patterns. Make notes to go along with the blood glucose readi ngs because you might forget what happened at that exact time. Keeping good records helps you and your health care provider to work together to achieve good diabetes management. This information is not intended to replace advice given to you by your health care provider. Make sure you discuss any questions you have with your health care provider. Document Released: 05/11/2004 Document Revised: 05/30/2015 Document Reviewed: 10/01/2013 ExitCare Patient Information 2016 [facility]. No follow up information was provided. Extracted from: Title: Office Visit Note Author: Brandon Mejia MD Date: 01/09/16 Assessment/Plan Controlled diabetes mellitus The patient was notified for the need for regular quarterly f/u of their diabetes. Further any pertinent medication, supplies, etc were refilled. Additionally, they are to have annual eye exams, foot exams, and regular care. Stopped the jardiance. Lab pending. Edema Cause unclear? Wt/chronic venous insuff.OA? Lab pending. CXR and cardiac work up declined. We discussed several options for treatment for this condition. The patient declined any changes or other treatments at this time. Lasix when interested. Echo, cxr and consult when willing. 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 Appropriate lab was reviewed from the most recent appropriate entry and lab was ordered if n eeded in the cpoe/nursing orders, and follow up recommended generally in 90 days and no later then six months. FH: HTN (hypertension) This issue was reviewed, appears stable, and current therapy continued except as mentioned. Appropriate lab was reviewed from the most recent appropriate entry and lab was ord ered if needed in the cpoe/nursing orders, and follow up recommended generally in 90 days and no later then six months. The patient had an elevated blood pressure reading and is to monitor their bp and call with a report if consistently > 140/90. The patient reports their blood pressure has been stable at home and is not having any significant or related problems. There has been no chest pain, chest pressure, soa/arriaga. Reports bp is normal at home. Ordered: CBC w/ Differential Comprehensive Metabolic Panel Urinalysis with Culture if Indicated High blood sugar The patient was notified for the need for regular quarterly f/u of their diabetes. Further any pertinent medication, supplies, etc were refilled. Additionally, they are to have annual eye exams, foot exams, and regular care. We discussed several options for treatment for this condition. The patient declined any changes or other treatments at this time. He stopped the jardiance due to the expense. Ordered: Hemoglobin A1c Knee pain, right We discussed several options for treatment for this condition. The patient declined any changes or other treatments at this time. To for steroid injection at his request. Meds offered anddeclines. IMPRESSION: Moderately advanced degenerative joint disease with no acute abnormality seen. [1] Obesity Diet and exercise as tolerated and feasible. Consider medication when interested. Orders: atenolol, 100 mg 1 tabs, Oral, Daily, # 90 tabs, 1 Refill(s), Pharmacy: [facility], 1 tabs Oral Daily metFORMIN, 1,000 mg 2 tabs, Oral, BID, # 360 tabs, 1 Refill(s), Pharmacy: [facility], 2 tabs Oral BID,x90 days
--- OUTSIDE RECORDS SUMMARY | 2017-11-21 15:06 | External Medical Summary | Referral Summary ---
:1950 Author Organization [facility], [facility] [address] [place] [id number] Care Team Providers Name Role Phone Brandon Mejia Primary Care Physician Encounter VC Date(s): 03/31/16 - 03/31/16 [facility] [address] [place] [address] [place] [phone] [place] Discharge Diagnosis: High blood pressure Discharge Diagnosis: Knee osteoarthritis Discharge Diagnosis: Leg swelling Discharge Diagnosis: RBBB (right bundle branch block) Discharge Diagnosis: Bustamante's lung Discharge Diagnosis: Overweight Discharge Disposition: 01-Home or Self Care Attending Physician: Luciano Bolton MD Admitting Physician: Luciano Bolton MD Referring Physician: Brandon Mejia MD Vital Signs Most recent to oldest [Reference Range]: 1 Peripheral Pulse Rate [60-100 bpm] 80 bpm (03/31/16 11:57 AM) Blood Pressure [90-140/60-90 mmHg] 136/82 mmHg (03/31/16 11:57 AM) Problem List Condition Effective Dates Status [...] Daily, # 90 tabs, 1 Refill(s), Pharmacy: [facility], 1 tabs Oral Daily Start Date: 01/09/16 Status: Orderedlisinopril 10 mg oral tablet 10 mg 1 tabs, Oral, Daily, # 90 tabs, 1 Refill(s), Pharmacy: [facility], 1 tabs Oral Daily Start Date: 03/22/16 Status: OrderedmetFORMIN 500 mg oral tablet 1,000 mg 2 tabs, Oral, BID, # 360 tabs, 1 Refill(s), Pharmacy: [facility], 2 tabsOral BID,x90 [...] 05/23/90 Lab mariela with IOC 1Neurofibroma left [id number]'s lung Social History Social History Type Response Smoking Status Former smoker; Type: Cigarettes; Tobacco use per day: 1/2 pack or more; Number of years: 4; Date Last Use: 1975 quit Assessment and Plan Extracted from: Title: Ambulatory Patient Education Author: Luciano Bolton MD Date: 03/31/16 Obesity Obesity is defined as having too much total body fat and a body mass index (BMI ) of 30 or more. BMI is an estimate of body fat and is calculated from your height and weight. BMI is typically calculated by your health care provider during regular wellness visits. Obesity happens when you consume more calories than you can burn by exercising or performing daily physical tasks. Prolonged obesity can cause major illnesses or emergencies , such as: Stroke. Heart disease. Diabetes. Cancer. Arthritis. High blood pressure (hypertension). High cholesterol. Sleep apnea. Erectile dysfunction. Infertility problems. CAUSES Regularly eating unhealthy foods. Physical inactivity. Certain disorders, such as an underactive thyroid (hypothyroidism), Chris's syndrome, and polycystic ovarian syndrome. Certain medicines, such as steroids, some depression medicines, and antipsychotics. Genetics. Lack of sleep. DIAGNOSIS A health care provider can diagnose obesity after calculating your BMI. Obesity will be diagnosed if your BMI is 30 or higher. There are other methods of measuring obesity levels. Some other methods include measuring your skinfold thickness, your waist circumference, and comparing your hip circumference to your waist circumference. TREATMENT A healthy treatment program includes some or all of the following: Long-term dietary changes. Exercise and physical activity. Behavioral and lifestyle changes. Medicine only under the supervision of your health care provider. Medicines may help, but only if they are used with diet and exercise programs. If your BMI is 40 or higher, your health care provider may recommend specialized surgery or programs to help with weight loss. An unhealthy treatment program includes: Fasting. Fad diets. Supplements and drugs. These choices do not succeed in long-term weight control. HOME CARE INSTRUCTIONS Exercise and perform physical activity as directed by your health care provider. To increase physical activity, try the following: Use stairs instead of elevators. Park farther away from store entrances. Garden, bike, or walk instead of watching television or using the computer. Eat healthy, low-calorie foods and drinks on a regular basis. Eat more fruits and vegetables. Use low-calorie cookbooks or take healthy cooking classes. Limit fast food, sweets, and processed snack foods. Eat smaller portions. Keep a daily journal of everything you eat. There are many free websites to help you with this. It may be helpful to measure your foods so you can determine if you are eating the correct portion sizes. Avoid drinking alcohol. Drink more water and drinks without calories. Take vitamins and supplements only as recommended by your health care provider. Weight-loss support groups, registered dietitians, counselors, and stress reduction education can also be very helpful. SEEK IMMEDIATE MEDICAL CARE IF: You have chest pain or tightness. You have trouble breathing or feel short of breath. You have weakness or leg numbness. You feel confused or have trouble talking. You have sudden changes in your vision. This information is not intended to replace advice given to you by your health care provider. Make sure you discuss any questions you have with your health care provider. Document Released: 06/16/2005 Document Revised: 05/30/2015 Document Reviewed: 06/14/2012 [employer] Interactive Patient Education 2016 [employer] Obesity Obesity is defined as having too much total body fat and a body mass index (BMI ) of 30 or more. BMI is an estimate of body fat and is calculated from your height and weight. BMI is typically calculated by your health care provider during regular wellness visits. Obesity happens when you consume more calories than you can burn by exercising or performing daily physical tasks. Prolonged obesity can cause major illnesses or emergencies , such as: Stroke. Heart disease. Diabetes. Cancer. Arthritis. High blood pressure (hypertension). High cholesterol. Sleep apnea. Erectile dysfunction. Infertility problems. CAUSES Regularly eating unhealthy foods. Physical inactivity. Certain disorders, such as an underactive thyroid (hypothyroidism), Chris's syndrome, and polycystic ovarian syndrome. Certain medicines, such as steroids, some depression medicines, and antipsychotics. Genetics. Lack of sleep. DIAGNOSIS A health care provider can diagnose obesity after calculating your BMI. Obesity will be diagnosed if your BMI is 30 or higher. There are other methods of measuring obesity levels. Some other methods include measuring your skinfold thickness, your waist circumference, and comparing your hip circumference to your waist circumference. TREATMENT A healthy treatment program includes some or all of the following: Long-term dietary changes. Exercise and physical activity. Behavioral and lifestyle changes. Medicine only under the supervision of your health care provider. Medicines may help, but only if they are used with diet and exercise programs. If your BMI is 40 or higher, your health care provider may recommend specialized surgery or programs to help with weight loss. An unhealthy treatment program includes: Fasting. Fad diets. Supplements and drugs. These choices do not succeed in long-term weight control. HOME CARE INSTRUCTIONS Exercise and perform physical activity as directed by your health care provider. To increase physical activity, try the following: Use stairs instead of elevators. Park farther away from store entrances. Garden, bike, or walk instead of watching television or using the computer. Eat healthy, low-calorie foods and drinks on a regular basis. Eat more fruits and vegetables. Use low-calorie cookbooks or take healthy cooking classes. Limit fast food, sweets, and processed snack foods. Eat smaller portions. Keep a daily journal of everything you eat. There are many free websites to help you with this. It may be helpful to measure your foods so you can determine if you are eating the correct portion sizes. Avoid drinking alcohol. Drink more water and drinks without calories. Take vitamins and supplements only as recommended by your health care provider. Weight-loss support groups, registered dietitians, counselors, and stress reduction education can also be very helpful. SEEK IMMEDIATE MEDICAL CARE IF: You have chest pain or tightness. You have trouble breathing or feel short of breath. You have weakness or leg numbness. You feel confused or have trouble talking. You have sudden changes in your vision. This information is not intended to replace advice given to you by your health care provider. Make sure you discuss any questions you have with your health care provider. Document Released: 06/16/2005 Document Revised: 05/30/2015 Document Reviewed: 06/14/2012 [employer] Interactive Patient Education 2016 [employer] Obesity Obesity is defined as having too much total body fat and a body mass index (BMI ) of 30 or more. BMI is an estimate of body fat and is calculated from your height and weight. BMI is typically calculated by your health care provider during regular wellness visits. Obesity happens when you consume more calories than you can burn by exercising or performing daily physical tasks. Prolonged obesity can cause major illnesses or emergencies , such as: Stroke. Heart disease. Diabetes. Cancer. Arthritis. High blood pressure (hypertension). High cholesterol. Sleep apnea. Erectile dysfunction. Infertility problems. CAUSES Regularly eating unhealthy foods. Physical inactivity. Certain disorders, such as an underactive thyroid (hypothyroidism), Mena's syndrome, and polycystic ovarian syndrome. Certain medicines, such as steroids, some depression medicines, and antipsychotics. Genetics. Lack of sleep. DIAGNOSIS A health care provider can diagnose obesity after calculating your BMI. Obesity will be diagnosed if your BMI is 30 or higher. There are other methods of measuring obesity levels. Some other methods include measuring your skinfold thickness, your waist circumference, and comparing your hip circumference to your waist circumference. TREATMENT A healthy treatment program includes some or all of the following: Long-term dietary changes. Exercise and physical activity. Behavioral and lifestyle changes. Medicine only under the supervision of your health care provider. Medicines may help, but only if they are used with diet and exercise programs. If your BMI is 40 or higher, your health care provider may recommend specialized surgery or programs to help with weight loss. An unhealthy treatment program includes: Fasting. Fad diets. Supplements and drugs. These choices do not succeed in long-term weight control. HOME CARE INSTRUCTIONS Exercise and perform physical activity as directed by your health care provider. To increase physical activity, try the following: Use stairs instead of elevators. Park farther away from store entrances. Garden, bike, or walk instead of watching television or using the computer. Eat healthy, low-calorie foods and drinks on a regular basis. Eat more fruits and vegetables. Use low-calorie cookbooks or take healthy cooking classes. Limit fast food, sweets, and processed snack foods. Eat smaller portions. Keep a daily journal of everything you eat. There are many free websites to help you with this. It may be helpful to measure your foods so you can determine if you are eating the correct portion sizes. Avoid drinking alcohol. Drink more water and drinks without calories. Take vitamins and supplements only as recommended by your health care provider. Weight-loss support groups, registered dietitians, counselors, and stress reduction education can also be very helpful. SEEK IMMEDIATE MEDICAL CARE IF: You have chest pain or tightness. You have trouble breathing or feel short of breath. You have weakness or leg numbness. You feel confused or have trouble talking. You have sudden changes in your vision. This information is not intended to replace advice given to you by your health care provider. Make sure you discuss any questions you have with your health care provider. Document Released: 06/16/2005 Document Revised: 05/30/2015 Document Reviewed: 06/14/2012 [employer] Interactive Patient Education 2016 [employer] Health and Wellness Obesity Obesity is defined as having too much total body fat and a body mass index (BMI ) of 30 or more. BMI is an estimate of body fat and is calculated from your height and weight. BMI is typically calculated by your health care provider during regular wellness visits. Obesity happens when you consume more calories than you can burn by exercising or performing daily physical tasks. Prolonged obesity can cause major illnesses or emergencies , such as: Stroke. Heart disease. Diabetes. Cancer. Arthritis. High blood pressure (hypertension). High cholesterol. Sleep apnea. Erectile dysfunction. Infertility problems. CAUSES Regularly eating unhealthy foods. Physical inactivity. Certain disorders, such as an underactive thyroid (hypothyroidism), Chris's syndrome, and polycystic ovarian syndrome. Certain medicines, such as steroids, some depression medicines, and antipsychotics. Genetics. Lack of sleep. DIAGNOSIS A health care provider can diagnose obesity after calculating your BMI. Obesity will be diagnosed if your BMI is 30 or higher. There are other methods of measuring obesity levels. Some other methods include measuring your skinfold thickness, your waist circumference, and comparing your hip circumference to your waist circumference. TREATMENT A healthy treatment program includes some or all of the following: Long-term dietary changes. Exercise and physical activity. Behavioral and lifestyle changes. Medicine only under the supervision of your health care provider. Medicines may help, but only if they are used with diet and exercise programs. If your BMI is 40 or higher, your health care provider may recommend specialized surgery or programs to help with weight loss. An unhealthy treatment program includes: Fasting. Fad diets. Supplements and drugs. These choices do not succeed in long-term weight control. HOME CARE INSTRUCTIONS Exercise and perform physical activity as directed by your health care provider. To increase physical activity, try the following: Use stairs instead of elevators. Park farther away from store entrances. Garden, bike, or walk instead of watching television or using the computer. Eat healthy, low-calorie foods and drinks on a regular basis. Eat more fruits and vegetables. Use low-calorie cookbooks or take healthy cooking classes. Limit fast food, sweets, and processed snack foods. Eat smaller portions. Keep a daily journal of everything you eat. There are many free websites to help you with this. It may be helpful to measure your foods so you can determine if you are eating the correct portion sizes. Avoid drinking alcohol. Drink more water and drinks without calories. Take vitamins and supplements only as recommended by your health care provider. Weight-loss support groups, registered dietitians, counselors, and stress reduction education can also be very helpful. SEEK IMMEDIATE MEDICAL CARE IF: You have chest pain or tightness. You have trouble breathing or feel short of breath. You have weakness or leg numbness. You feel confused or have trouble talking. You have sudden changes in your vision. This information is not intended to replace advice given to you by your health care provider. Make sure you discuss any questions you have with your health care provider. Document Released: 06/16/2005 Document Revised: 05/30/2015 Document Reviewed: 06/14/2012 [employer] Interactive Patient Education 2016 [employer] Musculoskeletal Knee Pain Knee pain is a very common symptom and can have many causes. Knee pain often goes away when you follow your health care provider's instructions for relieving pain and discomfort at home. However, knee p ain can develop into a condition that needs treatment. Some conditions may include: Arthritis caused by wear and tear (osteoarthritis). Arthritis caused by swelling and irritation (rheumatoid arthritis or gout). A cyst or growth in your knee. An infection in your knee joint. An injury that will not heal. Damage, swelling, or irritation of the tissues that support your knee ( torn ligaments or tendinitis). If your knee pain continues, additional tests may be ordered to diagnose your condition. Tests may include X-rays or other imaging studies of your knee. You may also need to have fluid removed from your knee. Treatment for ongoing knee pain depends on the cause, but treatment may include: Medicines to relieve pain or swelling. Steroid injections in your knee. Physical therapy. Surgery. HOME CARE INSTRUCTIONS Take medicines only as directed by your health care provider. Rest your knee and keep it raised (elevated) while you are resting. Do not do things that cause or worsen pain. Avoid high-impact activities or exercises, such as running, jumping rope , or doing jumping jacks. Apply ice to the knee area: Put ice in a plastic bag. Place a towel between your skin and the bag. Leave the ice on for 20 minutes, 23 times a day. Ask your health care provider if you should wear an elastic knee support. Keep a pillow under your knee when you sleep. Lose weight if you are overweight. Extra weight can put pressure on your knee. Do not use any tobacco products, including cigarettes, chewing tobacco, or electronic cigarettes. If you need help quitting, ask your health care provider. Smoking may slow the healing of any bone and joint problems that you may have. SEEK MEDICAL CARE IF: Your knee pain continues, changes, or gets worse. You have a fever along with knee pain. Your knee marilyn or locks up. Your knee becomes more swollen. SEEK IMMEDIATE MEDICAL CARE IF: Your knee joint feels hot to the touch. You have chest pain or trouble breathing. This information is not intended to replace advice given to you by your health care provider. Make sure you discuss any questions you have with your health care provider. Document Released: 03/05/2008 Document Revised: 05/30/2015 Document Reviewed: 12/23/2014 [employer] Interactive Patient Education 2016 [employer] No follow up information was provided. Referrals to Other Providers Referred by: Luciano Bolton MD
--- OUTSIDE RECORDS SUMMARY | 2017-11-21 15:07 | External Medical Summary | Referral Summary ---
:1950 Author Organization [facility] [place] [id number] Care Team Providers Name Role Phone Brandon Mejia Primary Care Physician Encounter VC Date(s): 04/14/16 - 04/14/16 [facility] [place] [phone] [place] Discharge Diagnosis: Controlled diabetes mellitus Discharge Diagnosis: Knee pain, right Discharge Diagnosis: Benign essential hypertension Discharge Diagnosis: Bustamante's lung Discharge Diagnosis: Obesity Discharge Disposition: 01-Home or Self Care Attending Physician: Bradnon Mejia MD Admitting Physician: Brandon Mejia MD Vital Signs Most recent to oldest [Reference Range]: 1 Blood Pressure [90-140/60-90 mmHg] 140/90 mmHg (04/14/16 8:08 AM) Problem List Condition Effective Dates Status [...] Daily, # 90 tabs, 1 Refill(s), Pharmacy: [facility], 1 tabs Oral Daily Start Date: 04/14/16 Status: Orderedlisinopril 10 mg oral tablet 10 mg 1 tabs, Oral, Daily, # 90 tabs, 1 Refill(s), Pharmacy: [facility], 1 tabs Oral Daily Start Date: 04/14/16 Status: OrderedmetFORMIN 500 mg oral tablet 1,000 mg 2 tabs, Oral, BID, # 360 tabs, 1 Refill(s), Pharmacy: [facility], 2 tabsOral BID,x90 days [...] 05/23/90 Lab mariela with IOC 1Neurofibroma left lbtf0aifsel's lung Social History Social History Type Response Smoking Status Former smoker; Type: Cigarettes; Tobacco use per day: 1/2 pack or more; Number of years: 4; Date Last Use: 1975 quit Assessment and Plan Extracted from: Title: Ambulatory Patient Education Author: Brandon Mejia MD Date: 04/14 Family Medicine Arthritis, Nonspecific Arthritis is inflammation [...] arthritis you have. Consultation with a specialist (photo lab specialist) may be helpful. TREATMENT Your caregiver will discuss with you treatment specific to your type of arthritis. If the specific type cannot be determined, then the following general recommendations may apply. Treatment of severe joint pain includes: Rest. Elevation. Anti-inflammatory medication (for example, ibuprofen) may be prescribed. Avoiding activities that cause increased pain. Only take [id number]-[id number] or prescription medicines for pain and discomfort [...] This elevates uric acid levels. Only take xdyi-rev-drhotxn or prescription medicines for pain, discomfort or [...] warm shower. Put your joints through regular irnae-do-liujjd. SEEK MEDICAL CARE IF: You do not [...] Released: 06/16/2005 Document Revised: 05/30/2015 Document Reviewed: 08/04/2015 [employer] Interactive Patient Education 2016 [employer] No follow up information was provided. Extracted from: Title: Office Visit Note Author: Brandon Mejia MD Date: 04/14/16 Assessment/Plan Benign essential hypertension This issue was reviewed, appears stable, and current therapy continued except as mentioned. Appropriate lab was reviewed from the most recent appropriate entry and lab was ordered if needed in the cpoe/nursing orders, and follow up recommended generally in 90 days and no later then six months. The patient had an elevated blood pressure reading and is to monitor their bp and call with a report if consistently > 140/90. Discussion: Although the patient seems to be somewhatless than fully enthusiastic about evaluation, he does have clues tocongestive heart failure and perhaps diastolic dysfunction. His EKG demonstratesright bundle-branch block. He has atrial premature contractions. We advised an echocardiogramanda chest x-rayand an overnight O2 sat duration and a follow-up visit. We encouraged him to continue weight reduction. He is to call any time if he has difficulty otherwise we will see him at a routinevisit after his testing has been completed. [1] Conclusions: The study is technically limited due [...] is technically challenged but appears probably normal [2] IMPRESSION: 1. There is no radiographic evidence of acute cardiopulmonary process. [3] Controlled diabetes mellitus This issue was reviewed, appears stable, and current therapy continued except as mentioned. Appropriate lab was reviewed from the most recent appropriate entry and lab w as ordered if needed in the cpoe/nursing orders, and follow up recommended generally in 90 days and no later then six months. The patient was notified for the need for regular quarterly f/u of their diabetes. Further any pertinent medication, supplies, etc were refilled. Additionally, they are to have annual eye exams, foot exams, and regular care. Ubstamante's lung This issue was reviewed, appears stable, and current therapy continued except as mentioned. Appropriate lab was reviewed from the most recent appropriate entry and lab was ordered if n eeded in the cpoe/nursing orders, and follow up recommended generally in 90 days and no later then six months. Knee pain, right The patient's issue is nearly or completely resolved. There is no further issues or testing desired by them at this time. Stable per him. Obesity Diet and exercise as tolerated and feasible. Consider medication when interested. The patient has family members present who are agreeable with today's plan and have no additional concerns or requests. here.
--- OUTSIDE RECORDS SUMMARY | 2017-11-21 15:07 | External Medical Summary | Referral Summary ---
:1950 Author Organization [facility] Address [address] [place] [address] Care Team Providers Name Role Phone Brandon Mejia Primary Care Physician Encounter [facility] [id number] Date(s): 09/08/17 - 09/15/17 [facility] [address] [place] [address] [phone] Discharge Disposition: 01-Home or Self Care Attending Physician: Darwin Pennington MD Admitting Physician: Primo Murray MD Vital Signs Most recent to oldest [Reference Range]: 1 Temperature Oral [35.8-37.3 degC] 36.4 degC (09/15/17 3:03 PM) Peripheral Pulse Rate [60-100 bpm] 92 bpm (09/15/17 3:03 PM) Heart Rate Monitored [60-100 bpm] 108 bpm *HI* (09/10/17 3:51 AM) Respiratory Rate [14-20 br/min] 19 br/min (09/15/17 3:03 PM) Blood Pressure [90-140/60-90 mmHg] 136/68 mmHg (09/15/17 3:03 PM) SpO2 94 % (09/15/17 3:03 PM) Problem List Condition Effective Dates Status Health Status Informant Acute pain(Confirmed) Active At risk for infection(Confirmed)1 Active Atrial fibrillation(Confirmed) Active Benign essential Active hypertension(Confirmed) Symptomatic cholelithiasis(Confirmed) 05/23/12 Active Controlled diabetes Active mellitus(Confirmed) Bustamante's lung(Confirmed) Active Knee pain, right(Confirmed) Active Obesity(Confirmed) Active 1Problem added automatically by system based on initiation of At Risk for Infection in Nutrition Planof Care Allergies, Adverse Reactions, Alerts Substance Reaction Severity Status penicillin Unknown Active Medications acyclovir 400 mg oral tablet 400 mg 1 tabs, Oral, TID, x7 days, # 21 tabs, 0 Refill(s) Start Date: 09/15/17 Status: Orderedaspirin 325 mg, Daily, 0 Refill(s) Start Date: 11/30/13 Status: Orderedatenolol 100 mg oral tablet 100 mg 1 tabs, Oral, Daily, 0 Refill(s) Start Date: 09/08/17 Status: Orderedatorvastatin 40 mg oral tablet 40 mg 1 tabs, Oral, Bedtime (once a day), 0 Refill(s) Start Date: 09/08/17 Status: OrderedCompazine 10 mg, Oral, q6hr, as needed for nausea/vomiting, 0 Refill(s) Start Date: 09/08/17 Status: Orderedlisinopril 20 mg oral tablet 20 mg 1 tabs, Oral, Daily, 0 Refill(s) Start Date: 09/08/17 Status: Orderedmagnesium oxide 250 mg oral tablet 250 mg 1 tabs, Oral, Daily Start Date: 09/08/17 Status: OrderedMapap 500 mg oral tablet 1,000 mg 2 tabs, Oral, q6hr, as needed for pain, 0 Refill(s) Start Date: 09/08/17 Status: OrderedmetFORMIN 500 mg oral tablet 1,000 mg 2 tabs, Oral, BID, 0 Refill(s) Start Date: 09/08/17 Status: OrderedPercocet 5/325 oral tablet 1 tabs, Oral, TID, as needed for pain, 0 Refill(s) Start Date: 09/08/17 Status: OrderedVectibix IV, Tue/, every 2 weeks, 0 Refill(s) Start Date: 09/08/17 Status: Ordered Results Hematology Most recent to oldest [Reference Range]: 1 WBC [4.8-10.8 10*3/uL] 3.1 10*3/uL *LOW* (09/14/17 5:53 AM) RBC [4.60-6.20] 4.65 (09/14/17 5:53 AM) Hgb [14.0-18.0 gm/dL] 12.0 gm/dL *LOW* (09/14/17 5:53 AM) Hct [42.0-52.0 %] 36.1 % *LOW* (09/14/17 5:53 AM) MCV [82.0-99.0 fL] 77.6 fL *LOW* (09/14/17 5:53 AM) MCH [27.0-32.0 pg] 25.8 pg *LOW* (09/14/17 5:53 AM) MCHC [32.0-36.0 gm/dL] 33.2 gm/dL (09/14/17 5:53 AM) RDW [11.5-14.5 %] 17.3 % *HI* (09/14/17 5:53 AM) Platelet [150-400 10*3/uL] 126 10*3/uL *LOW* (09/14/17 5:53 AM) MPV [9.4-12.3 fL] 9.8 fL (09/14/17 5:53 AM) Immature Granulocytes [0.0-1.0 %] 0.7 % (09/14/17 5:53 AM) Neutrophils [51-75 %] 35 % *LOW* (09/14/17 5:53 AM) Lymphocytes [20-46 %] 56 % *HI* (09/14/17 5:53 AM) Monocytes [4-11 %] 8 % (09/14/17 5:53 AM) Eosinophils [0-4 %] 1 % (09/14/17 5:53 AM) Basophils [0-2 %] 0 % (09/14/17 5:53 AM) Neutro Absolute [1.90-7.00] 1.06 *LOW* (09/14/17 5:53 AM) Lymph Absolute [0.80-3.30] 1.71 (09/14/17 5:53 AM) [place] Absolute [0.30-1.00] 0.25 *LOW* (09/14/17 5:53 AM) Eos Absolute [0.00-0.50] 0.03 (09/14/17 5:53 AM) Baso Absolute [0.00-0.20] 0.00 (09/14/17 5:53 AM) Nucleated RBC Automated [0 /100 WBC] 0.0 /100 WBC (09/14/17 5:53 AM) Chemistry Most recent to oldest [Reference Range]: 1 Sodium Lvl [136-144 mEq/L] 141 mEq/L (09/13/17 4:01 AM) Potassium Lvl [3.6-5.1 mEq/L] 3.8 mEq/L (09/13/17 4:01 AM) Chloride [99-109 mEq/L] 107 mEq/L (09/13/17 4:01 AM) CO2 [22-32 mEq/L] 28 mEq/L (09/13/17 4:01 AM) AGAP [3-20 mEq/L] 6 mEq/L (09/13/17 4:01 AM) BUN [4-20 mg/dL] 10 mg/dL (09/13/17 4:01 AM) Glucose Lvl [70-100 mg/dL] 121 mg/dL *HI* (09/13/17 4:01 AM) Creatinine Lvl [0.64-1.27 mg/dL] 0.74 mg/dL (09/13/17 4:01 AM) eGFR [>60 mL/min] >60 mL/min 1 (09/13/17 4:01 AM) Calcium Lvl [8.6-10.0 mg/dL] 8.8 mg/dL (09/13/17 4:01 AM) Albumin Lvl [3.5-4.8 gm/dL] 3.1 gm/dL *LOW* (09/11/17 4:55 AM) Total Protein [6.1-7.9 gm/dL] 5.3 gm/dL *LOW* (09/11/17 4:55 AM) Globulin [1.9-4.3 gm/dL] 2.2 gm/dL (09/11/17 4:55 AM) ALT [17-63 U/L] 22 U/L (09/11/17 4:55 AM) AST [15-41 U/L] 20 U/L (09/11/17 4:55 AM) Alk Phos [26-104 U/L] 84 U/L (09/11/17 4:55 AM) Bili Total [0.2-1.2 mg/dL] 0.6 mg/dL 2 (09/11/17 4:55 AM) Iron [65-175 mcg/dL] 53 mcg/dL *LOW* (09/15/17 5:22 AM) TIBC [268-490 mcg/dL] 325 mcg/dL (09/15/17 5:22 AM) Iron Sat [11-46 %] 16 % (09/15/17 5:22 AM) Transferrin [180-329 mg/dL] 218 mg/dL (09/15/17 5:22 AM) Ferritin Lvl [24-340 ng/mL] 145 ng/mL (09/09/17 4:25 AM) Magnesium Lvl [1.8-2.5 mg/dL] 1.8 mg/dL (09/12/17 4:54 AM) Phosphorus [2.4-4.7 mg/dL] 3.7 mg/dL 3 (09/09/17 4:25 AM) Vitamin B12 Lvl [213-816 pg/mL] 276 pg/mL (09/09/17 4:25 AM) Folate Lvl [7.0-31.4 ng/mL] 16.1 ng/mL (09/09/17 4:25 AM) Blood Glucose, Capillary [70-100 mg/dL] 121 mg/dL *HI* (09/15/17 10:59 AM) Hgb A1c [4.1-5.6 %] 6.0 % *HI* (09/10/17 5:07 AM) eAvg Glucose 125.5 mg/dL (09/10/17 5:07 AM) 1Result Comment: Multiply eGFR results by 1.21 for race.2Result Comment: Naproxen, specifically the metabolite O-desmethylnaproxen, may cause spurious elevation in Total Bilirubin levels.3Result Comment: High dosages of liposomal Amphotericin B (AmBisome) therapy or other drug preparations that use a liposomal envelope to facilitate drug delivery may cause falsely elevated results for phosphorus.Microbiology Reports TEST:Blood Culture STATUS:Auth (Verified) BODY SITE: SOURCE:Blood COLLECTED DATE/TIME:09/08/17 10:37 PMBlood CultureNo growth after 5 days of incubation.TEST:Blood Culture STATUS:Auth (Verified) BODY SITE: SOURCE:Blood COLLECTED DATE/TIME:09/08/17 8:04 PMBlood CultureNo growth after 5 days of incubation.TEST:Blood Culture STATUS:Auth (Verified) BODY SITE: SOURCE:Blood COLLECTED DATE/TIME:09/08/17 8:02 PMBlood CultureNo growth after 5 days of incubation. Immunizations Given and Recorded Vaccine Date Status Refusal Reason tetanus-diphth toxoids (Td) adult/adol 10/08/02 Given pneumococcal 23-polyvalent vaccine 10/08/02 Recorded Procedures Procedure Date Related Diagnosis Body Site Status Excision of benign lesion of skin of 11/30/13 Completed extremities1 Cholecystectomy 05/23/12 Completed Bronch2 05/23/90 Completed Lab mariela with IOC Completed 1Neurofibroma left [id number]'s lung Social History Social History Type Response Smoking Status Former smoker; Type: Cigarettes; Tobacco use per day: 1/2 pack or more; Number of years: 4; Date Last Use: 1975 quit; entered on: 03/31/16
[2017-11-21] MEDS ORDERED: VANCOMYCIN - PHARMACY CONSULT MC ONE (15:10)
[2017-11-21] MEDS ORDERED: CEFEPIME 1 GM in NS 100 ML IV ONE (15:13)
[2017-11-21] MEDS ORDERED: LEVOFLOXACIN PB 750 MG/150 ML BAG IV SCH (15:15)
--- NOTE | 2017-11-21 16:45 | History & Physical Report ---
History of Present Illness Date: 11/21/17 Chief complaint: Sepsis, weakness HPI: Patient is a 67-year-old male who presented to receive his current blood counts stimulating medication outpatient at [facility] today. He reported feeling weak. He was given a liter of IV fluids. However, continued to feel weak, was then directed to the emergency room for acute evaluation. BC revealed leukocytosis with white count of 16.1, platelet count 119. His potassium is low at 3.1 otherwise was unremarkable. Chest x-ray negative for acute cardiopulmonary process. Blood cultures and urine culture were obtained. Patient was started on triple antibiotic therapy including vancomycin, Levaquin , cefepime. IV fluid bolus of 30 mL per kilo as per sepsis protocol. The hospitalist services were contacted and accepted patient for inpatient admission to the ICU for ongoing treatment. Patient is seen while in the emergency room, his to be tachycardic in the 120s, blood pressure stable 130/60, room air saturations 100%. Patient reports that he was recently hospitalized from 09/08/17 and till 09/15/17 at [facility] for disseminated herpes zoster. He underwent one week during hospitalization of IV azithromycin, followed by one week of oral azithromycin. Patient is immunocompromised as he is currently undergoing chemotherapy for colon and renal cell cancer. He last had 11/15/17 under the care of Dr. Teixeira. Patient noted since that time he has had some oral lesions around his mouth that have become irritating. Patient is noted to have red irritation to his chest and bilateral forearms. He states that all of these lesions have been chronic and he attributes it to "dry skin". He does have some rash to the right lower extremity that appears to be old, patient states this is where his shingles previously were. Patient does have excoriation to his coccyx region as well as bilateral groin folds. No noted vesicles in these locations. Patient does report to be Full Code. Review of Systems All systems PM: 10-point ROS was reviewed, no additional remarkable complaints except - Constitutional Constitutional: Present: fatigue, malaise - EENMT Eyes: Present: as per HPI, other (medial eyelid lesions) Mouth/Throat: Present: sores (around mouth) - Gastrointestinal Gastrointestinal Comments: Loose stools - Integumentary/Breasts Integumentary: Present: as per HPI, erythema (bilateral groin folds), lesions Past Medical History Medical History Updates: CAD. A-fib. Diabetes mellitus, type 2. Hypertension. Hyperlipidemia. Mircocytic anemia-chronic. 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 "Maligant mass in the stomach currently". Disseminated herpes zoster Surgical History: Colonoscopy adenocarcinoma rectum 06/20/2017. Low anterior resection-07/06/17- [facility]. Partial right nephrectomy-07/06/17- Dr. Sheriff. Power Port -08/11/2017. Cholecystectomy 2012- [facility]. Cardiac catheterization EF 60%, diatal LAD 90% stenosis Jose J Family History: Mother , age 83 Diabetes High blood pressure Heart attack Brother Diabetes High blood pressure Heart attack Stroke Sister Diabetes Heart attack High blood pressure Stroke Family History: As Above - Social History Smoking status: Former smoker (quit 42 yrs ago) Substance use type: does not use Alcohol intake frequency: does not drink Housing: house Household members: spouse Does patient use chewing tobacco?: No Current residence: Apartment/Private Home Social history: PCP Dr Mejia Oncologist- Dr Richardson Filament Maker- Dr. Sheriff Medications Home Medications Medication Instructions Recorded Confirmed Type Atorvastatin [Lipitor] 40 mg PO HS 04/27/17 11/21/17 History Aspirin 325 mg PO DAILY 08/10/17 11/21/17 History Atenolol [Tenormin] 50 mg PO DAILY 08/10/17 11/21/17 History Acetaminophen [Tylenol] 500 mg PO Q5H PRN 09/08/17 11/21/17 History Lisinopril [Prinivil] 10 mg PO DAILY 09/08/17 11/21/17 History Oxycodone/Acetaminophen 5/325 1 tab PO TID PRN 09/08/17 11/21/17 History [Percocet 5/325] Acyclovir [Acyclovir] 400 mg PO BID 11/21/17 11/21/17 History Magnesium Oxide [Magnesium] 400 mg PO BID 11/21/17 11/21/17 History Metformin HCl [Metformin HCl] 1,000 mg PO BID 11/21/17 11/21/17 History Allergies Allergy/AdvReac Type Severity Reaction Status Date / Time Penicillins Allergy Unknown unknown Verified 11/21/17 13:55 Exam Vital Signs: Temperature 98.0 F 11/21/17 13:31 Pulse Rate 120 H 11/21/17 15:30 Respiratory Rate 22 11/21/17 15:30 Blood Pressure 133/59 11/21/17 15:30 Pulse Oximetry 100 11/21/17 15:30 - Constitutional Present: no acute distress, well nourished, well developed - Routine HEENT Exam Eye: Present: EOMI ENT: Present: mucous membranes moist, dentition normal - Routine Respiratory Exam Present: CTA bilaterally. Absent: wheezes - Routine Cardiovascular Exam Present: RRR, S1, S2. Absent: murmur - Routine Abdominal Exam Present: soft, normoactive bowel sounds, non distended. Absent: tenderness - Routine Exam Genitals image: 1 - Erythema with open wounds with excoriation 2 - Erythema with open lesion with excoriation - Routine Extremities Exam Present: normal capillary refill - Routine Back/Spine/Pelvis Exam Back/Spine: Present: full ROM - Routine Skin Exam Present: intact, dry, warm - Routine Neurological Exam Present: alert, oriented X3, CN II-XII intact, moving all extremities - Routine Psychiatric Exam Present: normal affect, normal thought process, cooperative Results - Labs CBC & Chem 7: 11/21/17 14:12 11/21/17 14:12 Microbiology Results: Microbiology 11/21/17 15:34 Urine, Voided (Cc/notcc) Urine Culture - Preliminary Culture Initiated - Results Pending Assessment and Plan (1) Severe sepsis Current visit: Yes Status: Acute Assessment and Plan: Impression Septic shock -Leukocytosis- WBC- 16.4, Tachycardia- 120, Lactate- 4.4 Groin rash- acute excoriation Possible vesicular rash with herpes zoster versus impetigo on the corners of his mouth Oral ulcers mainly on the tongue Immunocompromised on chemotherapy Hypomagnesemia Hypokalemia Microcytic anemia Colon cancer with renal cell, cancer Chronic atrial fibrillation Chronic heart failure Hypertension Type II diabetes Recent disseminated herpes zoster of right lower extremity-August 2017 Plan Admit to inpatient status under the care of Dr Giraldo for severe sepsis Sepsis protocol initiated in the emergency room including blood cultures, urine culture, normal saline fluid bolus, 30 mL per kilo totaling- 3450 ml Decrease fluids to 100 mL per hour Continue triple antibiotic therapy including vancomycin, cefepime, Levaquin. will consult to manage vancomycin dosing. Did speak with Dr Baez for her recommendations given recent virus of the right lower extremity. Will obtain lesion swab HSV Antigen screen to rule out viral etiology Will start IV Diflucan 200mg daily as well as topical nystatin ointment. Obtain C-Diff as he has recently had loose stools. While reviewing external records it appears patient has been on Acyclovir daily and was started on a new Rx today for 400mg BID. Will discuss further with attending Monitor Accu-Cheks during hospitalization. Home metformin is to be placed on hold- this may contribute to elevated lactate. Will initiate NovoLog sliding scale for hyperglycemia. In does wish to be a full code and this order is written Will discuss further orders and plan of care with attending, Dr. Giraldo At time of discharge medical care will return to primary care provider, Dr Mejia 11/21/2017-6:30 PM-I examined the patient independently. I reviewed this chart, the patient history, and the ACUTE CARE NURSING ASSISTANT's/PA's documented findings as above. We discussed and formulated the assessment and plan as above with the additions below.-Dr. Giraldo The patient was seen this evening in CCU. He was hospitalized at [facility] in August of this year with disseminated herpes zoster. He is currently on acyclovir 400 by mouth twice a day. He went to the cancer Center today and was feeling weak. He was given a liter of IV fluids and did not feel any better and was directed to the emergency room. In the ER he was found to have elevated lactate of 4.4, A. fib with RVR, no hypotension or hypoxia. Lung sounds were coarse on the right but chest x-ray showed no cardiopulmonary disease. He does have rashes over multiple areas of his body. He has a couple of vesicular type areas of rash medial to each eye, he has rash at the corners of both side of his mouth going down to his chin which look like impetigo versus vesicular rash which she states he's been treating with Campho-Phenique. He also has ulcers on his tongue. He has some erythematous rash on his chest and arms. He further has a yeast appearing rash in his groin bilaterally. He has had diarrhea for a couple of weeks. On exam he is alert and oriented and in no acute distress. He is currently getting his third liter of IV fluids at [facility]. He got 1 L of IV fluids prior to admission. Currently heart rate is 124, blood pressure 118/55, O2 sat percent on room air. He is afebrile. HEENT reveals sclerae to be anicteric, pupils are equal, oropharynx is moist. He has rashes as described above. Chest is clear to auscultation anteriorly. He has a Port-A-Cath which is accessed. There some minimal erythema around the Port -A-Cath. He has a rash on the center of his chest as well. Cardiovascular reveals a tachycardic rate with an irregular rhythm. Abdomen is soft, obese, nontender and nondistended with positive bowel sounds. He has bilateral groin erythema with excoriation. Extremities are free of clubbing cyanosis or edema. He has fading vesicular rash on his feet from previous herpes zoster. Lab reveals potassium of 3.1, magnesium 0.7, bicarbonate 19, anion gap 17, calcium 7.1, lactate 4.4, pro-calcitonin less than 0.05. Glucose is 188. White count 16.1 with 97% neutrophils and 1% bands. Hemoglobin is 10.5. Impression Septic shock-most likely a skin source Cellulitis of the groin likely initially a fungal infection with possible superinfection. Possible zoster around his mouth. Pneumonia is less likely. A. fib with RVR and known chronic A. fib Hypomagnesemia-chronic Hypokalemia Metabolic acidosis Obstructive sleep apnea Immunocompromised on chemotherapy Colon cancer Diabetes mellitus type 2 Anemia Thrombocytopenia Diastolic congestive heart failure-chronic Hypertension Diarrhea Plan Monitor closely in CCU. Give 30 mL's per kilogram of normal saline. Repeat lactate and basic metabolic profile. Give magnesium 3 g IV. Recheck magnesium. Potassium was replaced orally and will recheck. The patient was started on Levaquin, vancomycin and cefepime in the emergency room. We'll continue for now and recheck chest x-ray tomorrow. IV Diflucan was started for candidiasis of the groin. IV acyclovir will be started for possible disseminated shingles. Skin swab was taken to rule out shingles. Wound and skin consult Stool for C. difficile regarding diarrhea Discussed with infectious disease specialist by phone Accu-Cheks, sliding scale insulin, DC metformin for now Hopefully tachycardia will improve with IV fluids. The patient is critically ill. Greater than 1 hour of critical care time spent seeing and evaluating the patient in determining care plan. DVT Prophylaxis: SCD's Resuscitation Status: Full Code - Time spent with patient Time with patient PN: 50 minutes Coordination of Care: >50% of visit spent providing counseling/coordination of care - Physician Narrative Narrative: Date: 11/21/17 Time: 1639 Hospital Course Summary Disclaimer: The visit summary below is not to be considered part of the above Progress Note.
[2017-11-21] MEDS ORDERED: VANCOMYCIN - PHARMACY CONSULT MC SCH (17:45)
[2017-11-21] MEDS: FLUCONAZOLE PB 200 MG/100 ML BAG IV SCH (18:20)
[2017-11-21 18:30] VITALS: BMI 34.6
[2017-11-21] MEDS ORDERED: GLUCOSE ORAL GEL 40% 37.5gm PO PRN (18:44)
[2017-11-21] MEDS ORDERED: DEXTROSE 50% SYRINGE 50ml (1 AMP) IVP PRN (18:44)
[2017-11-21] MEDS: NS 1,000 ML IV SCH (19:54)
[2017-11-21] MEDS: NS IV SCH (19:58)
[2017-11-21] MEDS: ACYCLOVIR IV SCH (19:58)
[2017-11-21] MEDS: MAGNESIUM SULFATE 1gm PREMIX 1 GM/100 ML BAG IV SCH ×3 (20:08→22:12)
[2017-11-21] MEDS: NYSTATIN OINTMENT 15gm TP SCH (20:09)
[2017-11-21] MEDS: ATORVASTATIN 40 MG TABLET PO SCH (20:21)
[2017-11-21] MEDS: ACETAMINOPHEN 500 MG TABLET PO PRN (20:21)
[2017-11-21] MEDS ORDERED: MAGNESIUM OXIDE 400 MG TABLET PO SCH (21:00)
[2017-11-21] MEDS ORDERED: ATENOLOL 25 MG TABLET PO SCH (21:00)
[2017-11-22] MEDS: ACYCLOVIR IV SCH ×3 (03:04→18:32)
[2017-11-22] MEDS: NS IV SCH ×3 (03:04→18:32)
[2017-11-22] MEDS: ACETAMINOPHEN 500 MG TABLET PO PRN ×2 (03:20→14:56)
[2017-11-22] MEDS: SALINE FLUSH 10ml SYRINGE IVF PRN (04:41)
[2017-11-22] MEDS: NS 1,000 ML IV SCH ×2 (06:13→22:00)
[2017-11-22] MEDS ORDERED: MAGNESIUM SULFATE 1gm PREMIX 1 GM/100 ML BAG IV ONE (08:16)
[2017-11-22] MEDS: ATENOLOL 25 MG TABLET PO SCH ×2 (08:20→16:58)
[2017-11-22] MEDS: NYSTATIN OINTMENT 15gm TP SCH ×3 (08:21→20:39)
[2017-11-22] MEDS ORDERED: ASPIRIN 325 MG TABLET PO SCH (09:00)
[2017-11-22] MEDS ORDERED: ATENOLOL 100 MG TABLET PO SCH (09:00)
[2017-11-22] MEDS ORDERED: LISINOPRIL 20 MG TABLET PO SCH (09:00)
[2017-11-22] MEDS ORDERED: CEFEPIME 1 GM in NS 100 ML IV SCH (09:00)
--- NOTE | 2017-11-22 09:09 | XRay Report ---
Indication: rule out pneumonia PROCEDURE: XR chest 1V: Encounter: Initial Comparison: November 21, 2017 at 1432 Findings: The lungs are stable in appearance without new focal airspace consolidation. There is no pleural effusion or pneumothorax. The heart size, pulmonary vascularity and mediastinal contours are unchanged.] IJ port catheter. Right lower lobe calcified granulomas. IMPRESSION: Stable appearance of the chest without acute cardiopulmonary disease. .
--- NOTE | 2017-11-22 10:22 | General Surgery Consult Note ---
Consult date: 11/22/17 Attending Physician: Margarita Giraldo MD [facility] Patient Stated Medical History Medical History Updates: CAD. A-fib per prior H&P. Sleep apnea (pt denies). Diabetes mellitus, type 2. Hypertension. Hyperlipidemia. Obesity - BMI 37. Chronic anemia. 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 Disseminated Shingles 08/2017 transferred to [place]. Surgical History: Colonoscopy adenocarcinoma at 20 cm 06/20/2017. Low anterior resection-2 (+) nodes 07/06/17- [facility]. Partial right nephrectomy-renal clear cell carcinoma 07/06/17- Dr. Sheriff. Power Port -08/11/2017. Cholecystectomy 2012- [facility]. Cardiac catheterization EF 60%, diatal LAD 90% stenosis Jose J Family History: Family History (Last Reviewed 08/03/17 @ 14:49 by Loreto Galdamez [facility]) Mother , age 83 Diabetes High blood pressure Heart attack Brother Diabetes High blood pressure Heart attack Stroke Sister Diabetes Heart attack High blood pressure Stroke Family History Updates: Mother , age 83. Diabetes. HTN ( hypertension). Heart attack. Brother. Diabetes. HTN (hypertension). Heart attack. Stroke. Sister. Diabetes. Heart attack. HTN (hypertension). Stroke - Social History Smoking status: Former smoker (quit 42 yrs ago) second hand exposure: No Substance use type: does not use Alcohol intake frequency: does not drink Housing: house Household members: spouse Current occupational status: retired Does patient use chewing tobacco?: No Current residence: Apartment/Private Home Medications Home Medications Medication Instructions Recorded Confirmed Type Atorvastatin [Lipitor] 40 mg PO HS 04/27/17 11/21/17 History Aspirin 325 mg PO DAILY 08/10/17 11/21/17 History Atenolol [Tenormin] 50 mg PO DAILY 08/10/17 11/21/17 History Acetaminophen [Tylenol] 500 mg PO Q5H PRN 09/08/17 11/21/17 History Lisinopril [Prinivil] 10 mg PO DAILY 09/08/17 11/21/17 History Oxycodone/Acetaminophen 5/325 1 tab PO TID PRN 09/08/17 11/21/17 History [Percocet 5/325] Acyclovir [Acyclovir] 400 mg PO BID 11/21/17 11/21/17 History Magnesium Oxide [Magnesium] 400 mg PO BID 11/21/17 11/21/17 History Metformin HCl [Metformin HCl] 1,000 mg PO BID 11/21/17 11/21/17 History Allergies Allergy/AdvReac Type Severity Reaction Status Date / Time Penicillins Allergy Unknown unknown Verified 11/21/17 13:55 Review of Systems 10-point ROS: negative except for HPI and the following: - General General: Present: other (fatigue) Additional Comments: Spotty rash of face arms, truck, and yeasty appearance and smell to groin creases. - Eyes/Ears/Nose/Throat Ear Nose Throat: Present: loose/chipped/cracked teeth - Cardiovascular Cardiovascular: Present: irregular heart beat - Musculoskeletal Musculoskeletal: Present: back pain, joint pain - Neurological Neurological: Present: muscle weakness - Endocrine Endocrine: Present: diabetes - Vital Signs Last Vital Signs Temp 97.9 F 11/22/17 07:45 Pulse 106 H 11/22/17 08:00 Resp 24 11/22/17 07:45 BP 104/63 11/22/17 07:00 Pulse Ox 100 11/22/17 07:45 - Laboratory Result Diagrams: 11/22/17 04:40 11/22/17 04:40 - Microbiogy Microbiology 11/21/17 15:34 Urine, Voided (Cc/notcc) Urine Culture - Preliminary Culture Initiated - Results Pending General Surgery Results - Results Labs: 11/22/17 04:40 11/22/17 04:40 Microbiology: Microbiology 11/21/17 15:34 Urine, Voided (Cc/notcc) Urine Culture - Preliminary Culture Initiated - Results Pending
[2017-11-22] MEDS ORDERED: CALCIUM GLUCONATE 1,000 MG in NS 100 ML IV ONE (10:45)
--- NOTE | 2017-11-22 10:54 | Progress Note ---
- Date 11/22/17 Subjective: The patient was seen this morning in his room accompanied by his and grandson. He states he is feeling better than yesterday. His biggest complaint is pain around his mouth from lesions on the corners of his mouth going down to his chin. These appear either to be cold sores versus impetigo versus disseminated herpes zoster. He has some sores in his nose and the medial corner of his eyelids bilaterally. He denies any chest pain, shortness of breath, or lightheadedness. He has some mild chronic abdominal pain which is unchanged. He feels hungry. Blood culture from the port is growing Staphylococcus aureus which appears to be MRSA. Peripheral blood culture is negative. Tachycardia improved with atenolol last night. Blood pressure has remained stable. Urine output has been good. He did have diarrhea yesterday, but fortunately C. difficile was negative. Objective Vital signs: Temperature 97.9 F 11/22/17 07:45 Pulse Rate 112 H 11/22/17 10:30 Respiratory Rate 29 H 11/22/17 10:30 Blood Pressure 143/80 H 11/22/17 10:04 Pulse Oximetry 100 11/22/17 10:30 Height/Weight/BMI: Height 1.83 m Weight 115.9 kg Body Mass Index 34.6 Comments: Afebrile, heart rate 98, blood pressure 127/63, O2 sat 100% on room air I&O 6435/510 -He also received an additional 1 L of IV fluids as an outpatient prior to admission GEN-alert, oriented, no acute distress HEENT-sclera anicteric, pupils are equal, oropharynx is moist, he has ulcers on his tongue which are not painful. He has a rash at the medial corners of his eyelids bilaterally and either impetigo or viral rash at the corners of his mouth going down to his chin, these have a honey crusted appearance NECK-supple CV-borderline tachycardic rate with an irregular rhythm. CHEST-clear to auscultation bilaterally. Port-A-Cath in the right upper chest reveals some surrounding erythema but no tenderness. No drainage. Patient's states that she thought it looked bruised for the past few days ABD-soft, obese, nontender with positive bowel sounds Wesley in place with good urine output- EXT-no edema NEURO-no focal deficits SKIN-skin lesions unchanged from yesterday. No new findings other than the erythema around the Port-A-Cath may be a little greater today. Results - Labs CBC & Chem 7: 11/22/17 04:40 11/22/17 04:40 Labs: Neutrophils are 96%, magnesium 1.5, calcium 6.2, ionized calcium 0.95 Stool for C. difficile is negative Microbiology Results: Microbiology 11/21/17 15:34 Urine, Voided (Cc/notcc) Urine Culture - Preliminary Culture Initiated - Results Pending Blood culture from the Port-A-Cath is positive for staph aureus, most likely MRSA Blood culture from peripheral site is negative to date Varicella zoster virus direct FA is pending Assessment and Plan (1) Severe sepsis Current visit: Yes Status: Acute Assessment and Plan: Impression Septic shock -Leukocytosis- WBC- 16.4, Tachycardia- 120, Lactate- 4.4 MRSA positive blood culture from Port-A-Cath/probable Port-A-Cath infection Groin rash- acute excoriation, probable fungal infection but cannot rule out secondary cellulitis Possible vesicular rash with herpes zoster versus impetigo on the corners of his mouth Oral ulcers mainly on the tongue Immunocompromised on chemotherapy (not neutropenic) Hypomagnesemia Hypokalemia Hypocalcemia Thrombocytopenia Microcytic anemia Colon cancer with renal cell, cancer Chronic atrial fibrillation-rapid ventricular response has improved Chronic diastolic heart failure-no signs of acute congestive heart failure at this time Hypertension-well controlled, continue off lisinopril for now Type II diabetes-fair control, monitor Accu-Cheks off of metformin 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 difficile on 11/21/2017 Metabolic acidosis-resolved Plan Dr. Porras was consulted for probable Port-A-Cath infection. Plan for removal later today. Will obtain cultures of the Port-A-Cath. Continue vancomycin for MRSA positive blood culture. Discussed with Dr. Baez. We'll discontinue Levaquin and cefepime. Continue IV Diflucan and acyclovir for now. Continue IV fluids for now while patient is nothing by mouth. Can DC IV fluids when taking by mouth well and urine output has improved. Continue atenolol 25 mg by mouth twice a day for rate control for A. fib Replace magnesium IV. Replace potassium orally Replace calcium IV and orally. Recheck magnesium, potassium and calcium this afternoon. Monitor Accu-Cheks, give sliding scale insulin as needed. Recheck CBC, renal panel, magnesium tomorrow. Will update Dr. Richardson, patient's oncologist Discussed findings today with Dr. Baez, MEREDITH Murphy for Dr. Porras, patient's nurse, patient and family. Greater than 40 minutes of critical care time spent seeing and evaluating the patient in determining care plan. DVT Prophylaxis: SCD's Resuscitation Status: Full Code - Physician Narrative Narrative: Date: 11/22/17 Time: 1049 Hospital Course Summary Disclaimer: The visit summary below is not to be considered part of the above Progress Note.
--- NOTE | 2017-11-22 11:11 | Pharmacy Consult-Antibiotics ---
Pharmacy Consult-Vancomycin - Laboratory Information WBC 13.0 T/MM3 (4.5-11.0) H 11/22/17 04:40 BUN 10.0 MG/DL (9-20) 11/22/17 04:40 Creatinine 0.8 mg/dL (0.8-1.5) D 11/22/17 04:40 Procalcitonin < 0.05 NG/ML 11/21/17 14:12 - Consult Information VANCOMYCIN CONSULT: Day 2 Dx: SEVERE SEPSIS RB was seen while in the emergency room, his to be tachycardic in the 120s, blood pressure stable 130/60, room air saturations 100%. Patient reports that he was recently hospitalized from 09/08/17 and till 09/15/17 at [facility] for disseminated herpes zoster. He underwent one week during hospitalization of IV azithromycin, followed by one week of oral azithromycin. Patient is immunocompromised as he is currently undergoing chemotherapy for colon and renal cell cancer. The physician notes Septic shock -Leukocytosis- WBC- 16.4, Tachycardia- 120, Lactate- 4.4. Will treat with a goal of Vancomycin troughs between 15-20 mcg/mL. I started Vancomcyin 1,750 mg iv every 8 hours. I ordered a Vancomycin trough before the 11/23 1000 dose. Thanks , Jericho Boone, Pharmacist.
[2017-11-22] MEDS ORDERED: NS IV ONE (11:30)
[2017-11-22] MEDS ORDERED: CALCIUM CHLORIDE IV ONE (11:30)
[2017-11-22] MEDS ORDERED: NS IVP ONE (11:45)
[2017-11-22] MEDS ORDERED: CALCIUM CHLORIDE IVP ONE (11:45)
[2017-11-22] MEDS ORDERED: BUPIVACAINE 0.25%/EPI 1:200,000 30ml SDV ONE (12:13)
[2017-11-22] MEDS ORDERED: FentaNYL 100 MCG/2 ML INJECTION ONE (12:33)
[2017-11-22] MEDS ORDERED: KETAMINE 500 MG/10 ML INJECTION ONE (12:34)
[2017-11-22] MEDS ORDERED: MIDAZOLAM 2mg/2ml INJECTION ONE (12:35)
[2017-11-22] MEDS ORDERED: NS 1,000 ML IV SCH (12:45)
--- NOTE | 2017-11-22 12:49 | Anesthesia Preoperative Report ---
Anesthesia Preoperative Record - Date and Time Date: 11/22/17 Preoperative Diagnosis: septic shock NPO Since Date: 11/21/17 NPO Since Time: 23:00 Allergies/Adverse Reactions: Allergies Allergy/AdvReac Type Severity Reaction Status Date / Time Penicillins Allergy Unknown unknown Verified 11/21/17 13:55 - Vital Signs Vital Signs: Temperature 97.9 F 11/22/17 07:45 Pulse Rate 112 H 11/22/17 10:30 Respiratory Rate 29 H 11/22/17 10:30 Blood Pressure 143/80 H 11/22/17 10:04 Pulse Oximetry 100 11/22/17 10:30 Height and Weight: Height 6 ft Weight 115.9 kg Body Mass Index 34.6 - Medications Inpatient Medications: Current Medications Acetaminophen (Tylenol) 500 mg PO Q5H PRN PRN Reason: Pain Last Admin: 11/22/17 03:20 Dose: 500 mg Atenolol (Tenormin) 25 mg PO BIDWM [facility] Last Admin: 11/22/17 08:20 Dose: 25 mg Atorvastatin Calcium (Lipitor) 40 mg PO HS [facility] Last Admin: 11/21/17 20:21 Dose: 40 mg Calcium/Vitamin D (Caltrate + D) 1 tab PO BID CAR[facility] Dextrose (D50%W) 20 ml IVP PRN PRN PRN Reason: Hypoglycemia Glucose (Glutose 15) 37.5 gm PO PRN PRN PRN Reason: Hypoglycemia Vancomycin HCl 1,750 mg/ (Sodium Chloride) 500 mls @ 250 mls/hr IV Q8H [facility] Last Admin: 11/22/17 11:05 Dose: 250 mls/hr Fluconazole (Diflucan 200 Mg Premix) 200 mg in 100 mls @ 100 mls/hr IV Q24H [facility] Last Infusion: 11/21/17 19:20 Dose: Infused Sodium Chloride (Normal Saline) 1,000 mls @ 100 mls/hr IV .Q10H [facility] Last Admin: 11/22/17 06:13 Dose: 100 mls/hr Acyclovir 1,150 mg/ Sodium (Chloride) 273 mls @ 250 mls/hr IV Q8H [facility] Last Admin: 11/22/17 11:05 Dose: 250 mls/hr Calcium Chloride 4.06 meq/ (Sodium Chloride) 102.9853 mls @ 51.493 mls/hr IVP O ONE Stop: 11/22/17 13:44 Sodium Chloride (Normal Saline) 1,000 mls @ 50 mls/hr IV .Q20H [facility] Insulin Aspart (Novolog) 2 - 8 unit SQ SS PRN; Protocol PRN Reason: Hyperglycemia Nystatin (Mycostatin) 1 applic TP TID [facility] Last Admin: 11/22/17 08:21 Dose: 1 applic Oxycodone/Acetaminophen (Percocet 5/325) 1 tab PO TID PRN PRN Reason: Pain Sodium Chloride (Iv Flush) 10 - 80 ml IVF PRN PRN PRN Reason: Flushing Last Admin: 11/22/17 04:41 Dose: 40 ml Sodium Phosphate (K-Phos *Neutral* Tablet) 500 mg PO [facility] Home Medications: Home Medications Medication Instructions Recorded Confirmed Type Atorvastatin [Lipitor] 40 mg PO HS 04/27/17 11/21/17 History Aspirin 325 mg PO DAILY 08/10/17 11/21/17 History Atenolol [Tenormin] 50 mg PO DAILY 08/10/17 11/21/17 History Acetaminophen [Tylenol] 500 mg PO Q5H PRN 09/08/17 11/21/17 History Lisinopril [Prinivil] 10 mg PO DAILY 09/08/17 11/21/17 History Oxycodone/Acetaminophen 5/325 1 tab PO TID PRN 09/08/17 11/21/17 History [Percocet 5/325] Acyclovir [Acyclovir] 400 mg PO BID 11/21/17 11/21/17 History Magnesium Oxide [Magnesium] 400 mg PO BID 11/21/17 11/21/17 History Metformin HCl [Metformin HCl] 1,000 mg PO BID 11/21/17 11/21/17 History Is Patient on Beta Pa?: Yes - Medical History Respiratory: Reports: Dyspnea (SOB with activity), Sleep Apnea (Pt denies sleep apnea) Comment Only: Pneumonia (Pt Denies Hx of pneumonia) Cardiovascular: Reports: Arrhythmia (AFIB PER H&P), Coronary Artery Disease ( PER H&P LAD 90% stenosis EF 60%), Hypertension, Hypotension DENIES: Myocardial Infarction Gastrointestional: Reports: Other (COLON CANCER) Neuro/Musculoskeletal: Reports: Back Problems, Other (Hip discomfort-right/ right knee discomfort) Renal/Endocrine: Reports: Diabetes Mellitus Type 2 DENIES: Diabetes Mellitus Type 1 Other History: Reports: Cancer (RENAL,COLON,ADENOCARCINOMA), Other (POWER PORT PLACEMENT) - Surgical History Cardiac Surgeries/Treatments: Reports: Cardiac Catheterization (MAR 2017, irregular heart beat, 0 stents LAD 90% stenosis, EF 60%) DENIES: Pacemaker Respiratory Surgery/Treatments: DENIES: BiPAP Use, CPAP Use GI Surgery/Treatments: Reports: Cholecystectomy, Colon Resection, Colonoscopy, EGD (1989) Surgery/Treatment: REPORT: Other (PARTIAL RT NEPHRECTOMY) Musculoskeletal Surgery/Tx: Reports: Total Hip Replacement, Other (broken wrist- right as child-no surgery) Reproductive Surgery/Treatment: DENIES: Mastectomy Hx Family Anesthesia Reaction: No - Social History Smoking Status: Former smoker (quit 42 yrs ago) Hx Chewing Tobacco Use: No Second Hand Exposure: No Substance Use Type: does not use Alcohol Intake Frequency: does not drink - Pertinent Findings Laboratory: CBC and BMP 11/22/17 04:40 11/22/17 04:40 BMP 11/21/17 11/22/17 19:30 04:40 Sodium 140 140 Potassium 3.2 L 3.2 L Chloride 110 H D 111 H Carbon Dioxide 19 L 19 L BUN 10.0 10.0 Creatinine 0.6 L 0.8 D Glucose 89 124 H Calcium 6.7 L 6.2 L Cardiac Enzymes 11/21/17 11/21/17 Range/Units 19:30 23:50 Troponin I < 0.012 < 0.012 (0-0.12) ng/ml Urine 11/21/17 Range/Units 15:34 Urine Color Sweta (YELLOW) Urine Clarity Clear Urine pH 5.5 (5.0-8.0) Ur Specific Mobile >=1.030 H (1.015-1.025) Urine Protein 2+ A (NEGATIVE) Urine Glucose (UA) Negative (NEGATIVE) EKG: A-fib - Physical Exam Respiratory Exam: Present: lungs clear Cardiovascular Exam: Present: irregularly irregular - Airway Assessment Mallampati Score: III TMD: 3 Fingerbreadths Neck Extension: fair Overall Assessment: no airway concerns - ASA ASA Score: 3 - Plan Anesthesia: General TIVA - Discussion Discussion: Discussed risks/options/alternatives of anesthesia and questions answered. Patient consents. Nursing pain assessment noted. Present for Discussion: spouse Attestation Statement: Prior to the delivery of any anesthetic medication, I examined the patient, developed the plan, obtained the patient's consent and discussed the risk and benefits of the procedure with the patient/guardian. - Additional Information Seen by Anesthesia: Yes
[2017-11-22] MEDS ORDERED: BUPIVACAINE 0.25%/EPI 1:200,000 30ml SDV ID ONE (12:51)
[2017-11-22] MEDS ORDERED: HYDROCODONE/APAP 5mg/325mg TABLET PO PRN (13:15)
--- NOTE | 2017-11-22 13:22 | Anesthesia Postoperative Note ---
- Date and Time Date: 11/22/17 Time: 13:22 - Status Patient Participated in Evaluation: Patient Participated in Person Vital Signs: Temperature 97.9 F 11/22/17 07:45 Pulse Rate 112 H 11/22/17 10:30 Respiratory Rate 29 H 11/22/17 10:30 Blood Pressure 143/80 H 11/22/17 10:04 Pulse Oximetry 100 11/22/17 10:30 Respiratory Function: Airway Patent Cardiovascular Function: Regular Pulse EKG: A-fib Mental Status: Alert and Oriented Pain Intensity: 0 Hydration: IV Infusing Complications During Recover: None Apparent - Follow-Up Instructions Instructions: Per Surgeon
--- NOTE | 2017-11-22 13:52 | General Surgery Procedure Note ---
Date of Procedure: 11/22/17 Surgeon: Vern Design Consultant: Bob Pete APRN Postoperative Diagnosis: MRSA positive port culture Procedure: Removal power port Estimated Blood Loss: See Anesthesia Record.
[2017-11-22] MEDS: PHOSPHORUS 250 MG TABLET PO SCH ×3 (14:57→20:39)
--- NOTE | 2017-11-22 16:06 | Wound Care Progress Note ---
Wound Center Progress Note: Pt seen for wound consult r/t multiple areas of skin breakdown. Pt seen with Raegan ST. Pt resting in bed, no complaints of pain, at bedside. Pt was hospitalized 09/08-09/15/17 at [facility] for tx of Herpes Zoster. 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 Pt is immunocompromised. Pt has multiple areas of excoriation on his upper arms and legs. Intertriginous skin damage with candidiasis under axillary region, under pannus, bilateral groins, bilateral breasts, and between toes. Pt has multiple scattered scabs r/t past shingle lesions. Pt has sores around bilateral corners of mouth and around R eye. Pt has an abdominal scar which has several superficial open areas on the inferior aspect of the incision. Pt had his portacath removed today r/t MRSA, band aid over this site. states they do not have AC at home, but pt has tried to sit in front of a fan while at home. has been dressing wounds with 'Butt cream" and coffee filters. Reports she stopped using the coffee filters because they were causing the sites to bleed. States her daughter will be bringing a window AC unit to the house tomorrow. SUMAYA ST reports he is applying nystatin cream to areas of denudation/excoriation. Will formulate a tx plan that pt's can use at home with minimal expense.
[2017-11-22] MEDS: FLUCONAZOLE PB 200 MG/100 ML BAG IV SCH (16:58)
--- NOTE | 2017-11-22 17:16 | Consultation ---
DATE OF SERVICE 11/22/2017 FINDINGS Mr. Jones is a 67-year-old gentleman whom I was asked to see today as a new patient as a result of his finding of a positive blood culture obtained through his port. Mr. Jones is known to my surgical practice as a result of his prior history for colon cancer and renal cancer. He has undergone prior partial colectomy and partial nephrectomy. states that he has been receiving chemotherapy as a result of his metastatic colon cancer and she had noted that about a week ago he began to appear more ill. The patient's states that last weekend he "didn't want to do anything but sleep." He was feeling more weak and fatigued. The patient denied any history for fever or chills. He presented yesterday to his primary care's office as a result of increasing weakness. Laboratory was obtained and he was found to have a component of leukocytosis. Additionally, from a clinical standpoint he was found to be tachycardic in nature. The patient was subsequently added to our facility for further care. Blood cultures were obtained. As stated above, blood culture from his port did return revealing evidence for MRSA. Upon questioning the patient states that he has noted some slight redness around his port. He has also had some "skin rashes" involving his lower abdomen and on his mouth. PAST MEDICAL HISTORY, PAST SURGICAL HISTORY, MEDICATIONS, ALLERGIES, SOCIAL HISTORY, FAMILY HISTORY, REVIEW OF SYSTEMS Performed by my nurse practitioner, Bob Pete APRN. PHYSICAL EXAMINATION GENERAL: Mr. Jones is a 67-year-old gentleman who did not appear to be in acute distress. VITAL SIGNS: Temperature 97.9, pulse 112, respirations 29, blood pressure 143/ 80, SAO2 100% on room air. HEENT: Normocephalic. Pupils equal and round to accommodation. One could see some ulcerated lesions involving his buccal mucosa. This may be related to his chemotherapy. NECK: Supple without lymphadenopathy. CHEST: [id number] is present within right infraclavicular region. There is an OpSite covering the port. Port is accessed. One can see some slight erythema around the port site. This was fairly subtle. HEART: Regular rate and rhythm. Normal S1 and S2. No murmur auscultated. ABDOMEN: Visualization of the abdomen does reveal some erythema involving his prior midline incision. He also has some excoriation of the skin within the left and right inguinal region. EXTREMITIES: No clubbing, cyanosis, edema. NEUROLOGIC: Cranial nerves II-XII grossly intact. Patient without focal motor sensory deficits. LABORATORY/RADIOGRAPHIC EVALUATION The patient's white count was 16,000 on admission. He was begun on broad- spectrum antibiotics empirically. White count is 13,000 today. Platelet count is low at 87,000. Does have a left shift with 96% neutrophils. CMP was obtained today and his potassium was low at 3.2. Procalcitonin level was obtained and found be normal at 0.05. Plasma lactate was 1.3 yesterday and is down to 0.9 today. UA was obtained and he was found to have positive nitrate, 1+ bacteria and a culture was set up. Stool has been obtained for C. difficile colitis and was found to be negative. As stated above, positive blood culture was obtained revealing evidence for MRSA on November 21, 2017 from the prior port site. ASSESSMENT 67-year-old gentleman with personal history for renal cell/colon carcinoma, immunosuppressed from chemotherapy, positive blood culture from the Port-A-Cath site with associated sepsis. PLAN Removal of PowerPort. Given his finding of sepsis and positive blood culture from his port I would recommend at this point in time proceeding with explantation/removal of his PowerPort catheter. I did discuss with the patient and his what this would entail and its associated risks which included but were not inclusive of bleeding and/or infection. They understood and wished to proceed. ANIRUDH
[2017-11-22] MEDS ORDERED: CALCIUM CHLORIDE 13.6 MEQ/10 ML IVP ONE (18:45)
[2017-11-22] MEDS: CALCIUM CHLORIDE 10% (1000mg/10ml) PFS INJECTION IVP ONE ×2 (18:48→22:00)
[2017-11-22] MEDS: MAGNESIUM SULFATE 1gm PREMIX 1 GM/100 ML BAG IV SCH ×2 (18:49→20:38)
[2017-11-22] MEDS: SODIUM BICARBONATE 100 MEQ, POTASSIUM CHLORIDE INJ 20 MEQ in D5W 1,000 ML IV SCH (20:38)
[2017-11-22] MEDS: CALCIUM 600 + VIT D 400 TABLET PO SCH (20:38)
[2017-11-22] MEDS: ATORVASTATIN 40 MG TABLET PO SCH (20:39)
[2017-11-23] MEDS: ACYCLOVIR IV SCH ×4 (01:56→18:44)
[2017-11-23] MEDS: NS IV SCH ×4 (01:56→18:44)
[2017-11-23] MEDS: SALINE FLUSH 10ml SYRINGE IVF PRN ×3 (01:57→18:44)
[2017-11-23] MEDS: NS FLUSH BAG 500ml IV PRN (01:57)
[2017-11-23] MEDS: CALCIUM 600 + VIT D 400 TABLET PO SCH ×2 (08:43→20:13)
[2017-11-23] MEDS: ATENOLOL 25 MG TABLET PO SCH ×2 (08:43→17:49)
[2017-11-23] MEDS: PHOSPHORUS 250 MG TABLET PO SCH ×4 (08:43→20:13)
[2017-11-23] MEDS: NYSTATIN OINTMENT 15gm TP SCH ×3 (08:44→20:14)
[2017-11-23] MEDS ORDERED: MAGNESIUM SULFATE 1gm PREMIX 1 GM/100 ML BAG IV ONE (09:43)
[2017-11-23] MEDS ORDERED: NS IVP ONE (11:00)
[2017-11-23] MEDS ORDERED: CALCIUM CHLORIDE IVP ONE (11:00)
--- NOTE | 2017-11-23 11:09 | Pharmacy Consult-Antibiotics ---
Pharmacy Consult-Vancomycin - Laboratory Information WBC 7.2 T/MM3 (4.5-11.0) D 11/23/17 04:37 BUN 5.0 MG/DL (9-20) L 11/23/17 04:37 Creatinine 0.9 mg/dL (0.8-1.5) 11/23/17 04:37 Procalcitonin < 0.05 NG/ML 11/21/17 14:12 Vancomycin Trough 33.63 ug/mL (15-20) H* 11/23/17 09:27 - Consult Information VANCOMYCIN CONSULT: Vancomycin Trough = 33.63 mcg/ml. Vancomycin dose was 1750 mg IV q8hrs. Dose was held. Today's SCr = 0.9 mg/dl. Will change schedule to Vancomycin 1750 mg IV q12hrs. Will continue to monitor and make adjustments accordingly. Thank you. Delisa Wilder, PharmD
[2017-11-23] MEDS: INSULIN ASPART 100unit/ml INJECTION SQ PRN (11:45)
[2017-11-23] MEDS: SODIUM BICARBONATE 100 MEQ, POTASSIUM CHLORIDE INJ 20 MEQ in D5W 1,000 ML IV SCH (11:46)
--- NOTE | 2017-11-23 14:03 | Progress Note ---
DATE 11/23/2017 FINDINGS Mr. Jones was seen earlier this morning on rounds. The patient and has state that he is doing considerably better. PHYSICAL EXAM VITAL SIGNS: Afebrile, normotensive. Please refer to EMR. CHEST: Clear to auscultation. Attention was focused to the right infraclavicular region. Dressing is present overlying his prior incision site. Dressing is clean, dry, and intact. ASSESSMENT 67-year-old gentleman status post removal/explantation of infected right PowerPort catheter. Patient currently doing well. PLAN Will go ahead and sign off the patient's care at this time. Will continue to see the patient on an as-needed basis. ANIRUDH
--- NOTE | 2017-11-23 14:46 | Progress Note ---
- Date 11/23/17 Subjective: Mr. Jones reports feeling improved today. His appetite is better and he ate breakfast without difficulty. He describes feeling as though the right side of his neck was burning this morning but there is no new rash was report. He denies dyspnea, cough, nausea, fever, or chills. He reports ongoing loose stools which been present for 2 weeks. His was present and reports rash on the right foot is improving but that the area under the pannus and right axilla are unchanged. PAC surgically removed yesterday. Objective Vital signs: Temperature 98.0 F 11/23/17 11:00 Pulse Rate 91 11/23/17 12:00 Respiratory Rate 26 H 11/23/17 11:00 Blood Pressure 107/72 11/23/17 11:00 Pulse Oximetry 100 - RA 11/23/17 11:00 I/O 5469/2410 Weight up 6.4 kg from admission NAD, alert, fluent speech EOMI, conjunctiva clear, sclera anicteric, oropharynx clear, no ulcers appreciated on the tongue at present but lips cracked Respirations nonlabored, good airflow, breath sounds clear Regular rhythm, S1-S2, low-grade tachycardia Abdomen soft, obese, nontender, bowel sounds present Extremities without edema MAEW Skin exam reveals 5-7 mm dark/dusky macules along the bridge of the nose bilaterally (1 lesion on each side of the nose), right lateral neck (3 or 4 lesions), several scattered over the anterior sternum, and in the right axilla ( 2-3); mild erythema on the right lateral neck; erythema with skin tears under the pannus and in the groin creases bilaterally; cracking/flaking between the toes on the right foot with fading lesions from prior herpes zoster. Dressing over PAC site cleaned/dry. Rhythm: Atrial Fibrillation with Normal Ventricular Rate, Atrial Fibrillation with RVR Height/Weight/BMI: Height 1.83 m Weight 121.3 kg Body Mass Index 34.6 Results - Labs CBC & Chem 7: 11/23/17 04:37 11/23/17 04:37 Labs: S91 L8 M1 Calcium 6.7, iCal 0.97, magnesium 1.6, phosphorus 3.1 Vancomycin trough 33.63 Microbiology Results: Microbiology 11/21/17 15:34 Urine, Voided (Cc/notcc) Urine Culture - Final No Growth After 2 Days 11/22/17 12:55 Catheter Tip, Picc Catheter Tip Culture - Preliminary No Growth After 1 Day Blood cultures 2 drawn 11/21/17: Culture obtained via PICC positive staph aureus , likely MRSA; culture drawn peripherally negative to date UC 11/21/17-negative to date - Imaging and Cardiology Chest x-ray Status: image reviewed by me (DENISHA) Assessment and Plan (1) Severe sepsis Current visit: Yes Status: Acute Assessment and Plan: Impression Septic shock -Leukocytosis- WBC- 16.4, Tachycardia- 120, Lactate- 4.4 MRSA positive blood culture from Port-A-Cath/probable Port-A-Cath infection - PAC removed 11/22/17 Groin rash- acute excoriation, probable fungal infection but cannot rule out secondary cellulitis Possible vesicular rash with herpes zoster versus impetigo on the corners of his mouth Oral ulcers mainly on the tongue Immunocompromised on chemotherapy (not neutropenic) Hypomagnesemia Hypokalemia Hypocalcemia Hypophosphatemia Thrombocytopenia Microcytic anemia Colon cancer with renal cell, cancer Chronic atrial fibrillation-rapid ventricular response has improved Chronic diastolic heart failure-no signs of acute congestive heart failure at this time Hypertension-well controlled, continue off lisinopril for now Type II diabetes-fair control, monitor Accu-Cheks off of metformin 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 difficile on 11/21/2017 Metabolic acidosis-resolved Plan: Dr. Porras removed Port-A-Cath yesterday due to concern about PAC infection; culture of catheter tip pending. Vancomycin dose adjusted in response to elevated trough earlier today. Final sensitivities pending however patient is penicillin sensitive. Remains on IV Diflucan and acyclovir for now fungal dermatitis involving the pannus/feet and possible oral herpes zoster-swab pending. Oral intake improved, discontinue IV fluids. Blood pressure stable. Continue atenolol 25 mg by mouth twice a day for rate control for A. fib; heart rate improving although remained low grade tach Replace magnesium 1 gr IV. Replace potassium orally and IV. Replace calcium IV and orally. Continue oral phosphorus. Recheck potassium and calcium this afternoon. Monitor Accu-Cheks, give sliding scale insulin as needed. Blood sugars well controlled. Recheck CBC, renal panel, magnesium tomorrow. Discussed with Dr. Porras, nursing, and patient's . DVT Prophylaxis: SCD's Resuscitation Status: Full Code - Physician Narrative Narrative: Date: 11/23/17 Time: 1439 Hospital Course Summary Disclaimer: The visit summary below is not to be considered part of the above Progress Note. Hospital Course: 11/21/17 Admitted with septic shock, likely skin source with fungal infection in the groin and possible secondary bacterial cellulitis. Possible oral herpes. A. fib with RVR-fib chronic. Monitor closely in CCU. Give 30 mL's per kilogram of normal saline. Repeat lactate and basic metabolic profile. Give magnesium 3 g IV. Recheck magnesium. Potassium was replaced orally and will recheck. The patient was started on Levaquin, vancomycin and cefepime in the emergency room. We'll continue for now and recheck chest x-ray tomorrow. IV Diflucan was started for candidiasis of the groin. IV acyclovir will be started for possible disseminated shingles. Skin swab was taken to rule out shingles. Wound and skin consult Stool for C. difficile regarding diarrhea Discussed with infectious disease specialist by phone Accu-Cheks, sliding scale insulin, DC metformin for now. 11/22/17 Dr. Porras was consulted for probable Port-A-Cath infection. Plan for removal later today. Will obtain cultures of the Port-A-Cath. Continue vancomycin for MRSA positive blood culture. Discussed with Dr. Baez. We'll discontinue Levaquin and cefepime. Continue IV Diflucan and acyclovir for now. Continue IV fluids for now while patient is nothing by mouth. Can DC IV fluids when taking by mouth well and urine output has improved. Continue atenolol 25 mg by mouth twice a day for rate control for A. fib Replace magnesium IV. Replace potassium orally Replace calcium IV and orally. Recheck magnesium, potassium and calcium this afternoon. Monitor Accu-Cheks, give sliding scale insulin as needed. 11/23/17 Dr. Porras removed Port-A-Cath yesterday due to concern about PAC infection; culture of catheter tip pending. Vancomycin dose adjusted in response to elevated trough earlier today. Final sensitivities pending however patient is penicillin sensitive so continuation of vancomycin anticipated. Remains on IV Diflucan and acyclovir for now fungal dermatitis involving the pannus/feet and possible oral herpes zoster-swab pending. Oral intake improved, discontinue IV fluids. Blood pressure stable. Ongoing electrolyte replacement.
[2017-11-23] MEDS: FLUCONAZOLE PB 200 MG/100 ML BAG IV SCH (16:05)
--- NOTE | 2017-11-23 16:40 | Operative Note ---
DATE OF SERVICE 11/22/2017 SURGEON Saulo Porras MD [employer] ATTEND[employer] Bob Pete APRN PREOPERATIVE DIAGNOSIS History for immunosuppression secondary to chemotherapy, presentation of sepsis with positive blood culture from [id number]. POSTOPERATIVE DIAGNOSIS History for immunosuppression secondary to chemotherapy, presentation of sepsis with positive blood culture from Uwpy-D-Srgxplxb. PROCEDURE Removal/explantation of Cmvy-S-Rnebfrbz. ANESTHESIA IV sedation/local BRIEF HISTORY/INDICATIONS Mr. Jones is a 67-year-old gentleman undergoing chemotherapy for metastatic colon cancer. He recently presented to our facility as a result of increasing weakness and was found to have evidence for sepsis. Infectious workup was undertaken and he was found to have a positive blood culture from his port revealing MRSA. As a result of the above indications it was recommended that he undergo removal of his Dmol-C-Aqbdlhug. For completeness please refer to notes included in the patient's chart. NARRATIVE OF PROCEDURE After informed consent was obtained the patient was brought to the operative suite and placed on the table in supine fashion. The right clavicular region was then prepped and draped in sterile fashion. Formal time-out was then completed. 0.25% Marcaine with epinephrine was injected circumferentially around his previously placed port. Local anesthetic was additionally injected beneath his prior surgical incision within the right infraclavicular region. Next, a 3-cm incision was made overlying the area of analgesia/overlying his prior surgical incision site. Dissection was carried down to the deep subcuticular tissues and underlying port. The port was then excised from the underlying chest wall and removed in its entirety in conjunction with the associated catheter. Tip of the catheter was placed in a sterile container for cultures. The catheter tract was then closed in a [id number] fashion with 3-0 Vicryl. Deep subcutaneous tissues were reapproximated by placing several simple interrupted sutures of 3-0 Vicryl. Skin edges were then imbricated by placing a few single interrupted sutures of 2-0 Prolene. The patient tolerated the procedure without difficulty and was sent back to his ICU bed in stable condition. Additionally, it should be noted that Bob Pete APRN, was present throughout the entire case and played a pivotal role in providing assistance and exposure during the course of the procedure. ANIRUDH
[2017-11-23] MEDS: ACETAMINOPHEN 500 MG TABLET PO PRN (16:51)
[2017-11-23] MEDS: POTASSIUM CHLORIDE PREMIX 10 MEQ/100 ML BAG IV SCH ×4 (17:46→22:12)
[2017-11-23] MEDS: ATORVASTATIN 40 MG TABLET PO SCH (20:13)
[2017-11-24] MEDS: VANCOMYCIN 1,750 MG in NS 500 ML IV SCH ×2 (00:01→12:34)
[2017-11-24] MEDS: ACYCLOVIR IV SCH ×3 (02:59→18:58)
[2017-11-24] MEDS: NS IV SCH ×3 (02:59→18:58)
[2017-11-24] MEDS: ATENOLOL 25 MG TABLET PO SCH (07:20)
[2017-11-24] MEDS: CALCIUM 600 + VIT D 400 TABLET PO SCH ×3 (07:20→21:27)
[2017-11-24] MEDS: PHOSPHORUS 250 MG TABLET PO SCH ×4 (07:20→21:27)
[2017-11-24] MEDS: NYSTATIN OINTMENT 15gm TP SCH ×4 (07:21→21:29)
[2017-11-24] MEDS: CALCITRIOL 0.25 MCG CAPSULE PO SCH (08:42)
[2017-11-24] MEDS: MAGNESIUM SULFATE 1gm PREMIX 1 GM/100 ML BAG IV SCH ×5 (11:15→23:40)
[2017-11-24] MEDS: ACETAMINOPHEN 500 MG TABLET PO PRN (11:26)
[2017-11-24] MEDS: FLUCONAZOLE PB 200 MG/100 ML BAG IV SCH (16:21)
--- NOTE | 2017-11-24 17:06 | Progress Note ---
- Date 11/24/17 Subjective: Mr. Jones was seen with his at bedside. He reports feeling good and that he slept well and that his appetite continues to improve. He denies dyspnea, cough, fever, chills, or pain. He continues to have diarrhea but reports that it 's improved from 2 weeks ago. Nursing describes rash on his right arm with generalized erythema underlying the blood pressure cuff the patient reports that his right hand is been somewhat swollen distal to the blood pressure cuff. Nursing reports good urine output. Low-grade tachycardia persists. Patient has no concerns at this time. Objective Vital signs: Temperature 98.5 F 11/24/17 15:52 Pulse Rate 106 H 11/24/17 15:52 Respiratory Rate 18 11/24/17 15:52 Blood Pressure 134/88 11/24/17 15:52 Pulse Oximetry 99 - RA 11/24/17 15:52 NAD, alert Conjugate gaze, conjunctiva clear, sclera anicteric Respirations nonlabored with good airflow, breath sounds clear anteriorly Irregular rhythm, S1-S2, low-grade tachycardia Abdomen soft, obese, nontender, active bowel sounds Hyperpigmented scabbed lesions base of the nose bilaterally-scabbing slightly more prominent today than yesterday; hyperpigmented lesions along the lateral right neck and over the sternum have resolved but generalized erythema persists. Extensive excoriation and skin tears persist under the pannus and in skin folds in the groin although the patient, his , and nursing all indicate that erythema and inflammation have improved significantly over the past couple of days. Erythema with minor soft tissue swelling ongoing in the right axilla as previously described. Alert, fluent speech, moving all extremities symmetrically Rhythm: Atrial Fibrillation with Normal Ventricular Rate, Atrial Fibrillation with RVR Height/Weight/BMI: Height 1.83 m Weight 125 kg Body Mass Index 34.6 Results - Labs CBC & Chem 7: 11/24/17 04:04 11/24/17 04:04 Labs: Accu-Cheks 112-141 in the past 24 hours Calcium 6.7, albumin 2.5, magnesium 1.1, phosphorus 2.8 Microbiology Results: Microbiology 11/22/17 12:55 Catheter Tip, Picc Catheter Tip Culture - Preliminary No Growth After 2 Days 11/21/17 15:34 Urine, Voided (Cc/notcc) Urine Culture - Final No Growth After 2 Days Blood culture drawn via Port-A-Cath on 11/21/17 finalized with MRSA Assessment and Plan (1) Severe sepsis Current visit: Yes Status: Acute Assessment and Plan: Impression Septic shock -Leukocytosis- WBC- 16.4, Tachycardia- 120, Lactate- 4.4 MRSA positive blood culture from Port-A-Cath/probable Port-A-Cath infection - PAC removed 11/22/17 Groin rash- acute excoriation, probable fungal infection but cannot rule out secondary cellulitis Possible vesicular rash with herpes zoster versus impetigo on the corners of his mouth Oral ulcers mainly on the tongue Immunocompromised on chemotherapy (not neutropenic) Hypomagnesemia Hypokalemia Hypocalcemia Hypophosphatemia Thrombocytopenia Microcytic anemia Colon cancer with renal cell, cancer Chronic atrial fibrillation-rapid ventricular response has improved Chronic diastolic heart failure-no signs of acute congestive heart failure at this time Hypertension-well controlled, continue off lisinopril for now Type II diabetes-fair control, monitor Accu-Cheks off of metformin 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 difficile on 11/21/2017 Metabolic acidosis-resolved Plan: PAC removed 11/22/17 due to positive blood culture drawn from port and evidence of inflammation present on admission; confirmed MRSA. Continue vancomycin. Will discuss with further with Dr. Baez tomorrow. Oral intake improved, discontinue IV fluids. Blood pressure stable. Persistent tachycardia, atenolol dose increased to 75 mg total daily. Current chemotherapy comprised of Vectibix and Folfox (leucovorin, fluorouracil , and oxaliplatin)-magnesium wasting and rashes associated with Vectibix. Continue IV replacement of magnesium; Rocaltrol started for suspected vitamin D deficiency in conjunction with oral calcium. Check ionized calcium in a.m. 1, 25 dihydroxy vitamin D being obtained in addition to previously known low 25- [place] D. Count stable compared to past 2 days. Monitor Accu-Cheks, give sliding scale insulin as needed. Blood sugars well controlled. Discussed with Dr. Richardson's office, nursing, and patient's . Stable to transfer out of ICU. DVT Prophylaxis: SCD's Resuscitation Status: Full Code - Physician Narrative Narrative: Date: 11/24/17 Time: 1702 Hospital Course Summary Disclaimer: The visit summary below is not to be considered part of the above Progress Note. Hospital Course: 11/21/17 Admitted with septic shock, likely skin source with fungal infection in the groin and possible secondary bacterial cellulitis. Possible oral herpes. A. fib with RVR-fib chronic. Monitor closely in CCU. Give 30 mL's per kilogram of normal saline. Repeat lactate and basic metabolic profile. Give magnesium 3 g IV. Recheck magnesium. Potassium was replaced orally and will recheck. The patient was started on Levaquin, vancomycin and cefepime in the emergency room. We'll continue for now and recheck chest x-ray tomorrow. IV Diflucan was started for candidiasis of the groin. IV acyclovir will be started for possible disseminated shingles. Skin swab was taken to rule out shingles. Wound and skin consult Stool for C. difficile regarding diarrhea Discussed with infectious disease specialist by phone Accu-Cheks, sliding scale insulin, DC metformin for now. 11/22/17 Dr. Porras was consulted for probable Port-A-Cath infection. Plan for removal later today. Will obtain cultures of the Port-A-Cath. Continue vancomycin for MRSA positive blood culture. Discussed with Dr. Baez. We'll discontinue Levaquin and cefepime. Continue IV Diflucan and acyclovir for now. Continue IV fluids for now while patient is nothing by mouth. Can DC IV fluids when taking by mouth well and urine output has improved. Continue atenolol 25 mg by mouth twice a day for rate control for A. fib Replace magnesium IV. Replace potassium orally Replace calcium IV and orally. Recheck magnesium, potassium and calcium this afternoon. Monitor Accu-Cheks, give sliding scale insulin as needed. 11/23/17 Dr. Porras removed Port-A-Cath yesterday due to concern about PAC infection; culture of catheter tip pending. Vancomycin dose adjusted in response to elevated trough earlier today. Final sensitivities pending however patient is penicillin sensitive so continuation of vancomycin anticipated. Remains on IV Diflucan and acyclovir for now fungal dermatitis involving the pannus/feet and possible oral herpes zoster-swab pending. Oral intake improved, discontinue IV fluids. Blood pressure stable. Ongoing electrolyte replacement. 11/24/17 PAC removed 11/22/17 due to positive blood culture drawn from port and evidence of inflammation present on admission; confirmed MRSA. Continue vancomycin. Will discuss with further with Dr. Baez tomorrow. Oral intake improved, discontinue IV fluids. Blood pressure stable. Persistent tachycardia, atenolol dose increased to 75 mg total daily. Current chemotherapy comprised of Vectibix and Folfox (leucovorin, fluorouracil , and oxaliplatin)-magnesium wasting and rashes associated with Vectibix. Continue IV replacement of magnesium; Rocaltrol started for suspected vitamin D deficiency in conjunction with oral calcium. Check ionized calcium in a.m. 1, 25 dihydroxy vitamin D being obtained in addition to previously known low 25- [place] D.
[2017-11-24] MEDS: ATORVASTATIN 40 MG TABLET PO SCH (21:27)
[2017-11-24] MEDS: INSULIN ASPART 100unit/ml INJECTION SQ PRN (21:50)
[2017-11-24] MEDS: ATENOLOL 50 MG TABLET PO SCH (22:11)
[2017-11-25] MEDS: MAGNESIUM SULFATE 1gm PREMIX 1 GM/100 ML BAG IV SCH (00:56)
[2017-11-25] MEDS: VANCOMYCIN 1,750 MG in NS 500 ML IV SCH ×2 (01:58→13:12)
[2017-11-25] MEDS: ACYCLOVIR IV SCH ×3 (05:00→20:55)
[2017-11-25] MEDS: NS IV SCH ×3 (05:00→20:55)
[2017-11-25] MEDS: PHOSPHORUS 250 MG TABLET PO SCH (09:23)
--- NOTE | 2017-11-25 11:03 | Wound Care Progress Note ---
Wound Center Progress Note: Pt seen for wound f/u. Pt has been transferred out of ICU. Pt lying in bed, no complaints of pain, at bedside. Pt in contact precautions. Per nursing staff, pt's over all skin condition is improving. Pt does have increased erythema to R axillary. Pt has intertriginous skin damage with candidiasis, multiple excoriation lesions, and chronic dried herpes zoster lesions. Pt's reports they are getting a window unit AC for the house. [place] plan: To affected areas: Sprinkle with nystatin powder, blot on [place] to create a crusting effect. Place coffee filters in between skin folds. Correction from last encounter: Pt's was using coffee filters at home which aided wound healing. Repeat q 3-4 days and PRN.
[2017-11-25] MEDS: CALCITRIOL 0.25 MCG CAPSULE PO SCH (11:11)
[2017-11-25] MEDS: NYSTATIN OINTMENT 15gm TP SCH ×3 (11:12→22:40)
[2017-11-25] MEDS: CALCIUM 600 + VIT D 400 TABLET PO SCH ×2 (11:12→20:08)
[2017-11-25] MEDS: ATENOLOL 25 MG TABLET PO SCH (11:50)
--- NOTE | 2017-11-25 14:03 | Pharmacy Consult-Antibiotics ---
Pharmacy Consult-Vancomycin - Laboratory Information WBC 2.6 T/MM3 (4.5-11.0) L 11/25/17 04:28 BUN 6.0 MG/DL (9-20) L D 11/25/17 04:28 Creatinine 0.8 mg/dL (0.8-1.5) 11/25/17 04:28 Procalcitonin < 0.05 NG/ML 11/21/17 14:12 Vancomycin Trough 25.70 ug/mL (15-20) H* 11/25/17 11:46 - Consult Information VANCOMYCIN CONSULT: Vancomycin Trough = 25.7 mcg/ml. Vancomycin dose was 1750 mg IV q12hrs. Today's SCr = 0.8 mg/dl. Will change schedule to Vancomycin 2000 mg IV q18hrs. Will continue to monitor and make adjustments accordingly. Thank you. Etelvina Whiting [facility]
--- NOTE | 2017-11-25 14:03 | Progress Note ---
- Date 11/25/17 Subjective: Patient is seen sitting in bed before lunch. He complains that his right arm is quite red and irritated this results of the blood pressure cuff. reports his right hand was swollen earlier, but this is improved. He reports he is having less pain in the groin. He's having more pain in the right axilla. Denies chest pain, shortness of breath, abdominal pain. He is able to stand on his own at this point. Still has his Wesley catheter. Objective Vital signs: Temperature 98.9 F 11/25/17 08:00 Pulse Rate 105 H 11/25/17 08:00 Respiratory Rate 20 11/25/17 08:00 Blood Pressure 110/67 11/25/17 08:00 Pulse Oximetry 97 11/25/17 08:00 Height/Weight/BMI: Height 1.83 m Weight 126 kg Body Mass Index 34.6 - Constitutional Present: no acute distress, well nourished, well developed - Routine HEENT Exam Head: Present: normocephalic, atraumatic - Routine Respiratory Exam Present: CTA bilaterally (anteriorly). Absent: wheezes - Routine Cardiovascular Exam Present: irregularly irregular - Routine Abdominal Exam Present: soft, non distended, non tender Comments: From his incision from his abdominal surgery, he still has area that is not completely healed. There is a small area of raw skin with slight oozing. No sign of infection. - Routine Extremities Exam Present: no edema, normal capillary refill Comments: Diffuse peeling of the skin to the feet bilaterally consistent with tinea pedis. Inguinal areas was significantly less exudate and redness. Coffee filters in place and are helping significantly. B/l forearms with erythema, extremely dry/scaly skin - Routine Skin Exam Present: dry, warm Comments: Gauze dressing over the area where the Port-A-Cath was removed. No tenderness or swelling noted to the area. He has diffuse erythema extending from the upper arm across the axilla and down onto the chest and ribs. - Routine Neurological Exam Present: alert, oriented X3 - Routine Lymphatic Exam Lymphatic: Absent: adenopathy - Routine Psychiatric Exam Present: normal affect, cooperative Results - Labs CBC & Chem 7: 11/25/17 04:28 11/25/17 04:28 Microbiology Results: Microbiology 11/21/17 18:53 Lesion Varicella-Zoster Virus Direct FA - Final 11/22/17 12:55 Catheter Tip, Picc Catheter Tip Culture - Final No Growth After 3 Days 11/21/17 15:34 Urine, Voided (Cc/notcc) Urine Culture - Final No Growth After 2 Days Assessment and Plan (1) Severe sepsis Current visit: Yes Status: Acute Assessment and Plan: Impression Septic shock -Leukocytosis- WBC- 16.4, Tachycardia- 120, Lactate- 4.4 MRSA positive blood culture from Port-A-Cath/probable Port-A-Cath infection - PAC removed 11/22/17 Groin rash- acute excoriation, probable fungal infection but cannot rule out secondary cellulitis Possible vesicular rash with herpes zoster versus impetigo on the corners of his mouth Oral ulcers mainly on the tongue Immunocompromised on chemotherapy (not neutropenic) Hypomagnesemia Hypokalemia Hypocalcemia Hypophosphatemia Thrombocytopenia Microcytic anemia Colon cancer with renal cell, cancer Chronic atrial fibrillation-rapid ventricular response has improved Chronic diastolic heart failure-no signs of acute congestive heart failure at this time Hypertension-well controlled, continue off lisinopril for now Type II diabetes-fair control, monitor Accu-Cheks off of metformin 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 difficile on 11/21/2017 Metabolic acidosis-resolved Plan: PAC removed 11/22/17 due to positive blood culture drawn from port and evidence of inflammation present on admission; confirmed MRSA. Day #5 vancomycin. Persistent tachycardia, atenolol dose increased to 75 mg total daily yesterday. Rates better today. WBC 16.1 on admission down to 2.6 today. He was scheduled to receive GCSF at Dr. Richardson's office and only had his 1st dose the day he was admitted to the hospital. Will proceed with Granix 480mcg daily and follow counts. Discussed with Dr. Richardson's office. Follow hgb - down to 7.3 today. Aquaphor to arms for dry skin. Lamisil to feet for tinea pedis. Current chemotherapy comprised of Vectibix and Folfox (leucovorin, fluorouracil , and oxaliplatin)-magnesium wasting and rashes associated with Vectibix. Start bladder retraining. Hope to DC Wesley soon. Continue working with OT/PT for strengthening. DVT Prophylaxis: SCD's Resuscitation Status: Full Code - Physician Narrative Physician: Daxa Goel MD Narrative: Date: 11/25/17 Time: 2029 I have independently evaluated and examined this patient. I reviewed the chart, the patient's history, and the [employer]/PA's documented findings as above. We discussed and formulated the assessment and plan as above with additions as below: Mr. Jones continues to report that he is doing well. His neck itches but no longer feels like it's on fire although the right axilla continues to burn. Appetite is improving. Overall skin condition is improving, erythema has subsided along the right side of the neck and anterior chest; persistent erythema/inflammation right axilla and forearms. Groin creases/pannus not evaluated today. Respirations nonlabored, breath sounds clear WBC, hemoglobin, platelet count all dropping slowly; calcium slightly improved today, magnesium improved after 8 g IV mag sulfate yesterday. Continue to monitor electrolytes. Agree with initiation G-CSF. Will likely need blood transfusion in 1-2 days. DFA for varicella-zoster negative per verbal report of lab--original report from EMS will be scanned into the computer. Accu-Cheks discontinued-consistently below 150. Hospital Course Summary Disclaimer: The visit summary below is not to be considered part of the above Progress Note. Hospital Course: 11/21/17 Admitted with septic shock, likely skin source with fungal infection in the groin and possible secondary bacterial cellulitis. Possible oral herpes. A. fib with RVR-fib chronic. Monitor closely in CCU. Give 30 mL's per kilogram of normal saline. Repeat lactate and basic metabolic profile. Give magnesium 3 g IV. Recheck magnesium. Potassium was replaced orally and will recheck. The patient was started on Levaquin, vancomycin and cefepime in the emergency room. We'll continue for now and recheck chest x-ray tomorrow. IV Diflucan was started for candidiasis of the groin. IV acyclovir will be started for possible disseminated shingles. Skin swab was taken to rule out shingles. Wound and skin consult Stool for C. difficile regarding diarrhea Discussed with infectious disease specialist by phone Accu-Cheks, sliding scale insulin, DC metformin for now. 11/22/17 Dr. Porras was consulted for probable Port-A-Cath infection. Plan for removal later today. Will obtain cultures of the Port-A-Cath. Continue vancomycin for MRSA positive blood culture. Discussed with Dr. Baez. We'll discontinue Levaquin and cefepime. Continue IV Diflucan and acyclovir for now. Continue IV fluids for now while patient is nothing by mouth. Can DC IV fluids when taking by mouth well and urine output has improved. Continue atenolol 25 mg by mouth twice a day for rate control for A. fib Replace magnesium IV. Replace potassium orally Replace calcium IV and orally. Recheck magnesium, potassium and calcium this afternoon. Monitor Accu-Cheks, give sliding scale insulin as needed. 11/23/17 Dr. Porras removed Port-A-Cath yesterday due to concern about PAC infection; culture of catheter tip pending. Vancomycin dose adjusted in response to elevated trough earlier today. Final sensitivities pending however patient is penicillin sensitive so continuation of vancomycin anticipated. Remains on IV Diflucan and acyclovir for now fungal dermatitis involving the pannus/feet and possible oral herpes zoster-swab pending. Oral intake improved, discontinue IV fluids. Blood pressure stable. Ongoing electrolyte replacement. 11/24/17 PAC removed 11/22/17 due to positive blood culture drawn from port and evidence of inflammation present on admission; confirmed MRSA. Continue vancomycin. Will discuss with further with Dr. Baez tomorrow. Oral intake improved, discontinue IV fluids. Blood pressure stable. Persistent tachycardia, atenolol dose increased to 75 mg total daily. Current chemotherapy comprised of Vectibix and Folfox (leucovorin, fluorouracil , and oxaliplatin)-magnesium wasting and rashes associated with Vectibix. Continue IV replacement of magnesium; Rocaltrol started for suspected vitamin D deficiency in conjunction with oral calcium. Check ionized calcium in a.m. 1, 25 dihydroxy vitamin D being obtained in addition to previously known low 25- [place] D. 11/25/17 PAC removed 11/22/17 due to positive blood culture drawn from port and evidence of inflammation present on admission; confirmed MRSA. Day #5 vancomycin. WBC 16.1 on admission down to 2.6 today. He was scheduled to receive GCSF at Dr. Richardson's office and only had his 1st dose the day he was admitted to the hospital. Will proceed with Granix 480mcg daily and follow counts. Discussed with Dr. Richardson's office. Follow hgb - down to 7.3 today. Aquaphor to arms for dry skin. Lamisil to feet for tinea pedis. DFA for varicella-zoster negative per verbal report of lab. Accu-Cheks discontinued-consistently below 150.
[2017-11-25] MEDS: TBO-FILGRASTIM 480mcg/0.8ml INJECTION SQ SCH (15:59)
[2017-11-25] MEDS: AQUAPHOR TOPICAL OINTMENT 52.5 G TUBE TP SCH ×2 (16:00→20:10)
[2017-11-25] MEDS: SALINE FLUSH 10ml SYRINGE IVF PRN (16:46)
[2017-11-25] MEDS: FLUCONAZOLE PB 200 MG/100 ML BAG IV SCH (16:46)
[2017-11-25] MEDS: ATORVASTATIN 40 MG TABLET PO SCH (20:07)
[2017-11-25] MEDS: ACETAMINOPHEN 500 MG TABLET PO PRN (20:08)
[2017-11-25] MEDS: TERFINAFINE 1% CREAM 12 G TUBE TOP SCH (20:11)
[2017-11-26] MEDS: ATENOLOL 50 MG TABLET PO SCH (00:28)
[2017-11-26] MEDS: NS IV SCH ×3 (04:15→20:18)
[2017-11-26] MEDS: ACYCLOVIR IV SCH ×3 (04:15→20:18)
[2017-11-26] MEDS ORDERED: NS FLUSH BAG 500ml IV PRN (07:57)
[2017-11-26] MEDS: CALCIUM 600 + VIT D 400 TABLET PO SCH ×2 (08:24→21:53)
[2017-11-26] MEDS: CALCITRIOL 0.25 MCG CAPSULE PO SCH (08:24)
[2017-11-26] MEDS: ATENOLOL 25 MG TABLET PO SCH ×2 (08:24→21:53)
[2017-11-26] MEDS: NS FLUSH BAG 500ml IV PRN (08:25)
[2017-11-26] MEDS: MAGNESIUM SULFATE 1gm PREMIX 1 GM/100 ML BAG IV SCH ×2 (08:25→09:55)
[2017-11-26] MEDS: AQUAPHOR TOPICAL OINTMENT 52.5 G TUBE TP SCH ×3 (08:28→21:54)
[2017-11-26] MEDS: TERFINAFINE 1% CREAM 12 G TUBE TOP SCH ×2 (08:28→21:55)
[2017-11-26] MEDS: SALINE FLUSH 10ml SYRINGE IVF PRN ×2 (08:29→15:17)
[2017-11-26] MEDS: NYSTATIN OINTMENT 15gm TP SCH ×3 (09:55→21:55)
[2017-11-26] MEDS: ACETAMINOPHEN 500 MG TABLET PO PRN ×2 (11:32→21:53)
[2017-11-26] MEDS: DiphenhydrAMINE 25 MG CAPSULE PO PRN ×2 (14:02→21:53)
[2017-11-26] MEDS: TBO-FILGRASTIM 480mcg/0.8ml INJECTION SQ SCH (16:27)
[2017-11-26] MEDS: FLUCONAZOLE PB 200 MG/100 ML BAG IV SCH (18:56)
[2017-11-26] MEDS: ATORVASTATIN 40 MG TABLET PO SCH (21:53)
--- NOTE | 2017-11-26 22:34 | Progress Note ---
- Date 11/26/17 Subjective: Mr. Jones reported that his blood pressure was a little low overnight but that he otherwise feels well. He denied dyspnea, cough, chest pain, palpitations , or lightheadedness. He denies pain as he typically does. He continues to have loose bowel movements but has had no nausea or vomiting. Wesley catheter remains in with bladder training ongoing. Appetite is good. Skin is improving progressively and the only areas that are currently bothering him or the right forearm which continues to burn in the right axilla. Objective Vital signs: Temperature 99.2 F 11/26/17 15:42 Pulse Rate 100 11/26/17 15:42 Respiratory Rate 18 11/26/17 15:42 Blood Pressure 116/78 11/26/17 15:42 Pulse Oximetry 99 -RA 11/26/17 15:42 I/O 3150/2300 Weight is up approximately 12 kg from admission NAD, alert EOMI, conjunctiva clear, sclera anicteric Respirations nonlabored, good airflow, breath sounds clear Irregular rhythm, S1-S2, low-grade tachycardia Abdomen soft, obese, nontender, bowel sounds present Extremities without edema Erythema present in the right axilla with some slough, erythema right forearm were blood pressure cuff previously maintained in the ICU. Excoriations and hyperpigmentation in skin folds of the pannus and groin. Rhythm: Atrial Fibrillation with Normal Ventricular Rate, Atrial Fibrillation with RVR Height/Weight/BMI: Height 1.83 m Weight 127.4 kg Body Mass Index 34.6 Results - Labs CBC & Chem 7: 11/26/17 15:18 11/26/17 04:17 Labs: A.m. CBC: WBC 2.8 with 73% neutrophils, hemoglobin 6.8, platelet ct 80K Calcium 7.2, albumin 2.6, magnesium 1.2 Microbiology Results: Microbiology 11/21/17 18:53 Lesion Varicella-Zoster Virus Direct FA - Final 11/22/17 12:55 Catheter Tip, Picc Catheter Tip Culture - Final No Growth After 3 Days 11/21/17 15:34 Urine, Voided (Cc/notcc) Urine Culture - Final No Growth After 2 Days Assessment and Plan (1) Severe sepsis Current visit: Yes Status: Acute Assessment and Plan: Impression Septic shock -Leukocytosis- WBC- 16.4, Tachycardia- 120, Lactate- 4.4 MRSA positive blood culture from Port-A-Cath/probable Port-A-Cath infection - PAC removed 11/22/17 Groin rash- acute excoriation, probable fungal infection but cannot rule out secondary cellulitis Possible vesicular rash with herpes zoster versus impetigo on the corners of his mouth Oral ulcers mainly on the tongue Immunocompromised on chemotherapy (not neutropenic) Hypomagnesemia Hypokalemia Hypocalcemia Hypophosphatemia Thrombocytopenia Microcytic anemia Colon cancer with renal cell, cancer Chronic atrial fibrillation-rapid ventricular response has improved Chronic diastolic heart failure-no signs of acute congestive heart failure at this time Hypertension-well controlled, continue off lisinopril for now Type II diabetes-fair control, monitor Accu-Cheks off of metformin 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 difficile on 11/21/2017 Metabolic acidosis-resolved Plan: PAC removed 11/22/17 due to positive blood culture drawn from port and evidence of inflammation present on admission; confirmed MRSA. Day #6 vancomycin. Persistent tachycardia, atenolol dose increased to 75 mg total daily 2 days ago but with lower blood pressures will decrease back to 25 twice a day. Hemoglobin has been dropping progressively, now under 7 and will transfuse 1 unit leuko-poor irradiated PRBCs today. Continue G-CSF for neutropenia following recent chemotherapy. Current chemotherapy comprised of Vectibix and Folfox (leucovorin, fluorouracil , and oxaliplatin)-magnesium wasting and rashes associated with Vectibix. Remains on Diflucan and acyclovir IV due to extent of rashes present on admission. Varicella-zoster DFA negative-discontinue acyclovir--resume home dose by mouth, convert to oral Diflucan. Magnesium replacement IV again today; potassium improved-oral replacement ongoing; calcium level improving following initiation of Rocaltrol. Phosphorus has been normal for 4 immd-Pxeqal-Wftl discontinued. Continue bladder retraining. Anticipate NANCY Wesley in a.m. Continue working with OT/PT for strengthening. - Physician Narrative Narrative: Date: 11/26/17 Time: 2230 Hospital Course Summary Disclaimer: The visit summary below is not to be considered part of the above Progress Note. Hospital Course: 11/21/17 Admitted with septic shock, likely skin source with fungal infection in the groin and possible secondary bacterial cellulitis. Possible oral herpes. A. fib with RVR-fib chronic. Monitor closely in CCU. Give 30 mL's per kilogram of normal saline. Repeat lactate and basic metabolic profile. Give magnesium 3 g IV. Recheck magnesium. Potassium was replaced orally and will recheck. The patient was started on Levaquin, vancomycin and cefepime in the emergency room. We'll continue for now and recheck chest x-ray tomorrow. IV Diflucan was started for candidiasis of the groin. IV acyclovir will be started for possible disseminated shingles. Skin swab was taken to rule out shingles. Wound and skin consult Stool for C. difficile regarding diarrhea Discussed with infectious disease specialist by phone Accu-Cheks, sliding scale insulin, DC metformin for now. 11/22/17 Dr. Porras was consulted for probable Port-A-Cath infection. Plan for removal later today. Will obtain cultures of the Port-A-Cath. Continue vancomycin for MRSA positive blood culture. Discussed with Dr. Baez. We'll discontinue Levaquin and cefepime. Continue IV Diflucan and acyclovir for now. Continue IV fluids for now while patient is nothing by mouth. Can DC IV fluids when taking by mouth well and urine output has improved. Continue atenolol 25 mg by mouth twice a day for rate control for A. fib Replace magnesium IV. Replace potassium orally Replace calcium IV and orally. Recheck magnesium, potassium and calcium this afternoon. Monitor Accu-Cheks, give sliding scale insulin as needed. 11/23/17 Dr. Porras removed Port-A-Cath yesterday due to concern about PAC infection; culture of catheter tip pending. Vancomycin dose adjusted in response to elevated trough earlier today. Final sensitivities pending however patient is penicillin sensitive so continuation of vancomycin anticipated. Remains on IV Diflucan and acyclovir for now fungal dermatitis involving the pannus/feet and possible oral herpes zoster-swab pending. Oral intake improved, discontinue IV fluids. Blood pressure stable. Ongoing electrolyte replacement. 11/24/17 PAC removed 11/22/17 due to positive blood culture drawn from port and evidence of inflammation present on admission; confirmed MRSA. Continue vancomycin. Will discuss with further with Dr. Baez tomorrow. Oral intake improved, discontinue IV fluids. Blood pressure stable. Persistent tachycardia, atenolol dose increased to 75 mg total daily. Current chemotherapy comprised of Vectibix and Folfox (leucovorin, fluorouracil , and oxaliplatin)-magnesium wasting and rashes associated with Vectibix. Continue IV replacement of magnesium; Rocaltrol started for suspected vitamin D deficiency in conjunction with oral calcium. Check ionized calcium in a.m. 1, 25 dihydroxy vitamin D being obtained in addition to previously known low 25- [place] D. 11/25/17 PAC removed 11/22/17 due to positive blood culture drawn from port and evidence of inflammation present on admission; confirmed MRSA. Day #5 vancomycin. WBC 16.1 on admission down to 2.6 today. He was scheduled to receive GCSF at Dr. Richardson's office and only had his 1st dose the day he was admitted to the hospital. Will proceed with Granix 480mcg daily and follow counts. Discussed with Dr. Richardson's office. Follow hgb - down to 7.3 today. Aquaphor to arms for dry skin. Lamisil to feet for tinea pedis. DFA for varicella-zoster negative per verbal report of lab. Accu-Cheks discontinued-consistently below 150. 11/26/17 Day #6 vancomycin. Persistent tachycardia, atenolol dose increased to 75 mg/d 2 days ago but with lower blood pressures will decrease back to 25 twice a day. Hemoglobin has been dropping progressively, now under 7 and will transfuse 1 unit leuko-poor irradiated PRBCs today. Continue G-CSF for neutropenia following recent chemotherapy. Current chemotherapy comprised of Vectibix and Folfox (leucovorin, fluorouracil , and oxaliplatin)-magnesium wasting and rashes associated with Vectibix. Remains on Diflucan and acyclovir IV due to extent of rashes present on admission. Varicella-zoster DFA negative-discontinue acyclovir--resume home dose by mouth, convert to oral Diflucan. Magnesium replacement IV again today; potassium improved-oral replacement ongoing; calcium level improving following initiation of Rocaltrol. Phosphorus has been normal for 4 vwoi-Nbyfmd-Nogm discontinued. Continue bladder retraining. Anticipate NANCY Wesley in a.m.
[2017-11-27] MEDS: Oxycodone/Acetaminophen 5/325 1 TAB PO PRN ×2 (08:11→15:45)
[2017-11-27] MEDS: ACYCLOVIR 200 MG CAPSULE PO SCH ×2 (08:27→21:36)
[2017-11-27] MEDS: CALCITRIOL 0.25 MCG CAPSULE PO SCH (08:27)
[2017-11-27] MEDS: FLUCONAZOLE 100 MG TABLET PO SCH (08:28)
[2017-11-27] MEDS: CALCIUM 600 + VIT D 400 TABLET PO SCH (08:28)
[2017-11-27] MEDS: ATENOLOL 25 MG TABLET PO SCH ×3 (08:29→22:00)
[2017-11-27] MEDS: AQUAPHOR TOPICAL OINTMENT 52.5 G TUBE TP SCH ×3 (08:32→21:37)
[2017-11-27] MEDS: SALINE FLUSH 10ml SYRINGE IVF PRN (08:37)
--- NOTE | 2017-11-27 09:17 | Pharmacy Consult-Antibiotics ---
Pharmacy Consult-Vancomycin - Laboratory Information WBC 2.8 T/MM3 (4.5-11.0) L 11/26/17 04:17 BUN 9.0 MG/DL (9-20) 11/27/17 08:00 Creatinine 1.0 mg/dL (0.8-1.5) 11/27/17 08:00 Procalcitonin < 0.05 NG/ML 11/21/17 14:12 Vancomycin Trough 22.33 ug/mL (15-20) H* 11/27/17 08:00 - Consult Information Trough high mostly due to previous dose hung late. We change dose to vancomycin 1.75gm ivpb q18h. Trough level should remain between 15 and 20 with this dose. Thanks
[2017-11-27] MEDS ORDERED: DIGOXIN 250 MCG TABLET PO ONE (12:00)
--- NOTE | 2017-11-27 12:05 | Progress Note ---
- Date 11/27/17 Subjective: Shaun is seen today in follow up. He reports c/o generalized itching. Benadryl helped yesterday, but has not had any today. He reports that rash on skin is improving. Family member at bedside is concerned re: new swelling in right leg that has developed since yesterday. Patient denies pain. No GI c/o. Chart is reviewed for collateral information. Objective Vital signs: Temperature 98.4 F 11/27/17 08:00 Pulse Rate 119 H 11/27/17 08:00 Respiratory Rate 20 11/27/17 08:00 Blood Pressure 100/68 11/27/17 08:00 Pulse Oximetry 98 11/27/17 08:00 Rhythm: Atrial Fibrillation with Normal Ventricular Rate, Atrial Fibrillation with RVR Height/Weight/BMI: Height 1.83 m Weight 128.2 kg Body Mass Index 34.6 - Constitutional Present: no acute distress, obese, disheveled, cooperative - Routine HEENT Exam Head: Present: normocephalic, atraumatic Eye: Present: EOMI, PERRL - Routine Respiratory Exam Present: CTA bilaterally, distant breath sounds. Absent: rales, rhonchi, wheezes - Routine Cardiovascular Exam Present: S1, S2, irregular rhythm (Tachycardic at rest) - Routine Abdominal Exam Present: soft, non tender, distended (Mildly distended vs. obese. ). Absent: tenderness, guarding, firm, rigid - Routine Extremities Exam Present: edema (Right LE, 2+. ), pulses intact. Absent: calf tenderness, Louise' s sign, tenderness - Routine Musculoskeletal Exam Musculoskeletal: Present: moving extremities well - Routine Skin Exam Present: erythema, petechiae, urticaria, warm, rash. Absent: intact Comments: Scattered reddened rash, worse on arms. +LE reddened rash on LE, less severe, appears c/w scratch bonilla. - Routine Neurological Exam Present: alert, oriented X3, moving all extremities - Routine Psychiatric Exam Present: normal affect, cooperative Results - Labs CBC & Chem 7: 11/27/17 08:01 11/27/17 08:00 Microbiology Results: Microbiology 11/21/17 18:53 Lesion Varicella-Zoster Virus Direct FA - Final 11/22/17 12:55 Catheter Tip, Picc Catheter Tip Culture - Final No Growth After 3 Days 11/21/17 15:34 Urine, Voided (Cc/notcc) Urine Culture - Final No Growth After 2 Days PICC-MRSA 11/21. Assessment and Plan (1) Severe sepsis Current visit: Yes Status: Acute Assessment and Plan: Impression Septic shock -Leukocytosis- WBC- 16.4, Tachycardia- 120, Lactate- 4.4 MRSA positive blood culture from Port-A-Cath/probable Port-A-Cath infection - PAC removed 11/22/17 Groin rash- acute excoriation, probable fungal infection but cannot rule out secondary cellulitis Possible vesicular rash with herpes zoster versus impetigo on the corners of his mouth Oral ulcers mainly on the tongue Immunocompromised on chemotherapy (not neutropenic) Hypomagnesemia Hypokalemia Hypocalcemia Hypophosphatemia Thrombocytopenia Microcytic anemia- transfuse 11/26. 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 difficile on 11/21/2017 Metabolic acidosis-resolved Plan: s/p PAC removal 11/22. Continue Vanco IV for treatment of MRSA bacteremia. Consider ID consult. Recent disseminated VZV- On acyclovir. F/U swab negative for recurrence. Continue scattered lesions- underlying source? He reports improvement. If no significant improvement, could consider scraping for scabies as well. Lesions can also be S/E of chemotherapy. Will schedule Benadryl for itching- monitor for sedation. New unilateral LE edema- check venous doppler. SCDs ordered, but not currently on. Higher risk for bleeding given low platelets, so hold off on blood thinners at this time. No Lasix given lower BP today. HR remains elevated- start tele. Continue lower dose BB. Add dig to help with HR control w/o further lowering BP. Continue close monitoring of labs, vitals. Remains complicated and ill. Magnesium is quite low- replace IV. Minor decrease in PO4- replace PO. Calcium is low, but so is albumin. Hold PO Calcium until Phos replacement is completed. Chart, documentation, imaging reviewed. DVT Prophylaxis: SCD's (Not on during time of visit. ), Lovenox (therapeutic dose) Resuscitation Status: Full Code - Physician Narrative Physician: Daxa Goel MD Narrative: Date: 11/27/17 Time: 1730 I have independently evaluated and examined this patient. I reviewed the chart, the patient's history, and the LAB SCIENTIST/PA's documented findings as above. We discussed and formulated the assessment and plan as above with additions as below: Mr. Jones was seen with his at bedside. He complains of increased itching in the skin upper extremities today but less burning. His noted increased swelling in his right lower extremity this morning with subsequent demonstration of occlusive DVT by venous Doppler. No past history of DVT or PE. Denies pleuritic pain, dyspnea, or calf pain. NAD, alert, repetitively rubbing at his neck and arms Neck and upper chest are more erythematous than they were yesterday +1 edema right ankle, trace edema left ankle; mild generalized swelling right calf, I don't appreciate a cord in the popliteal fossa. ANC 660 day, day 3 Granix Vancomycin trough slightly high-22.33, vancomycin dose adjusted downward slightly-refer to pharmacy no. Right lower extremity venous Doppler reviewed by myself, report reviewed- occlusive thrombus of the superficial femoral and popliteal veins which radiology describes as extensive. Acute DVT treatment options reviewed with the patient and his , Paulinenox initiated. Underlying malignancies, will discuss further with Dr. Richardson tomorrow to determine preferred ongoing treatment. Suspect will convert to DOAC. Will ask Dr. Baez to see patient tomorrow regarding duration of vancomycin treatment and ongoing fungal/antiviral treatment. Hospital Course Summary Disclaimer: The visit summary below is not to be considered part of the above Progress Note. Hospital Course: 11/21/17 Admitted with septic shock, likely skin source with fungal infection in the groin and possible secondary bacterial cellulitis. Possible oral herpes. A. fib with RVR-fib chronic. Monitor closely in CCU. Give 30 mL's per kilogram of normal saline. Repeat lactate and basic metabolic profile. Give magnesium 3 g IV. Recheck magnesium. Potassium was replaced orally and will recheck. The patient was started on Levaquin, vancomycin and cefepime in the emergency room. We'll continue for now and recheck chest x-ray tomorrow. IV Diflucan was started for candidiasis of the groin. IV acyclovir will be started for possible disseminated shingles. Skin swab was taken to rule out shingles. Wound and skin consult Stool for C. difficile regarding diarrhea Discussed with infectious disease specialist by phone Accu-Cheks, sliding scale insulin, DC metformin for now. 11/22/17 Dr. Porras was consulted for probable Port-A-Cath infection. Plan for removal later today. Will obtain cultures of the Port-A-Cath. Continue vancomycin for MRSA positive blood culture. Discussed with Dr. Baez. We'll discontinue Levaquin and cefepime. Continue IV Diflucan and acyclovir for now. Continue IV fluids for now while patient is nothing by mouth. Can DC IV fluids when taking by mouth well and urine output has improved. Continue atenolol 25 mg by mouth twice a day for rate control for A. fib Replace magnesium IV. Replace potassium orally Replace calcium IV and orally. Recheck magnesium, potassium and calcium this afternoon. Monitor Accu-Cheks, give sliding scale insulin as needed. 11/23/17 Dr. Porras removed Port-A-Cath yesterday due to concern about PAC infection; culture of catheter tip pending. Vancomycin dose adjusted in response to elevated trough earlier today. Final sensitivities pending however patient is penicillin sensitive so continuation of vancomycin anticipated. Remains on IV Diflucan and acyclovir for now fungal dermatitis involving the pannus/feet and possible oral herpes zoster-swab pending. Oral intake improved, discontinue IV fluids. Blood pressure stable. Ongoing electrolyte replacement. 11/24/17 PAC removed 11/22/17 due to positive blood culture drawn from port and evidence of inflammation present on admission; confirmed MRSA. Continue vancomycin. Will discuss with further with Dr. Baez tomorrow. Oral intake improved, discontinue IV fluids. Blood pressure stable. Persistent tachycardia, atenolol dose increased to 75 mg total daily. Current chemotherapy comprised of Vectibix and Folfox (leucovorin, fluorouracil , and oxaliplatin)-magnesium wasting and rashes associated with Vectibix. Continue IV replacement of magnesium; Rocaltrol started for suspected vitamin D deficiency in conjunction with oral calcium. Check ionized calcium in a.m. 1, 25 dihydroxy vitamin D being obtained in addition to previously known low 25- OH D. 11/25/17 PAC removed 11/22/17 due to positive blood culture drawn from port and evidence of inflammation present on admission; confirmed MRSA. Day #5 vancomycin. WBC 16.1 on admission down to 2.6 today. He was scheduled to receive GCSF at Dr. Richardson's office and only had his 1st dose the day he was admitted to the hospital. Will proceed with Granix 480mcg daily and follow counts. Discussed with Dr. Richardson's office. Follow hgb - down to 7.3 today. Aquaphor to arms for dry skin. Lamisil to feet for tinea pedis. DFA for varicella-zoster negative per verbal report of lab. Accu-Cheks discontinued-consistently below 150. 7/18 Day #6 vancomycin. Persistent tachycardia, atenolol dose increased to 75 mg/d 2 days ago but with lower blood pressures will decrease back to 25 twice a day. Hemoglobin has been dropping progressively, now under 7 and will transfuse 1 unit leuko-poor irradiated PRBCs today. Continue G-CSF for neutropenia following recent chemotherapy. Current chemotherapy comprised of Vectibix and Folfox (leucovorin, fluorouracil , and oxaliplatin)-magnesium wasting and rashes associated with Vectibix. Remains on Diflucan and acyclovir IV due to extent of rashes present on admission. Varicella-zoster DFA negative-discontinue acyclovir--resume home dose by mouth, convert to oral Diflucan. Magnesium replacement IV again today; potassium improved-oral replacement ongoing; calcium level improving following initiation of Rocaltrol. Phosphorus has been normal for 4 [id number] discontinued. Continue bladder retraining. Anticipate DC Wesley in a.m. 11/27/17 s/p PAC removal 11/22. Continue Vanco IV for treatment of MRSA bacteremia. Consider ID consult. Recent disseminated VZV- On acyclovir. F/U swab negative for recurrence. Continue scattered lesions- underlying source? He reports improvement. If no significant improvement, could consider scraping for scabies as well. Lesions can also be S/E of chemotherapy. Will schedule Benadryl for itching- monitor for sedation. New unilateral LE edema- check venous doppler. SCDs ordered, but not currently on. Higher risk for bleeding given low platelets, so hold off on blood thinners at this time. No Lasix given lower BP today. HR remains elevated- start tele. Continue lower dose BB. Add dig to help with HR control w/o further lowering BP. Continue close monitoring of labs, vitals. Remains complicated and ill. Magnesium is quite low- replace IV. Minor decrease in PO4- replace PO. Calcium is low, but so is albumin. Hold PO Calcium until Phos replacement is completed. Chart, documentation, imaging reviewed. Addendum entered and electronically signed by Mari Ibrahim APRN 11/27/17 15:17 : Call from radiology. Very large DVT right leg- common femoral, popliteal occlusive. D/W Dr. Goel- start LMWH full dose.
[2017-11-27] MEDS: DiphenhydrAMINE 25 MG CAPSULE PO SCH ×3 (13:49→21:38)
[2017-11-27] MEDS: PHOSPHORUS 250 MG TABLET PO SCH ×2 (13:49→17:23)
[2017-11-27] MEDS: NYSTATIN OINTMENT 15gm TP SCH ×3 (13:53→21:38)
[2017-11-27] MEDS: MAGNESIUM SULFATE 1gm PREMIX 1 GM/100 ML BAG IV SCH ×4 (13:54→17:18)
[2017-11-27] MEDS: TERFINAFINE 1% CREAM 12 G TUBE TOP SCH ×2 (13:54→21:39)
[2017-11-27] MEDS: ENOXAPARIN 150 MG/ML INJECTION SQ SCH (16:01)
[2017-11-27] MEDS: TBO-FILGRASTIM 480mcg/0.8ml INJECTION SQ SCH (16:03)
[2017-11-27] MEDS: ATORVASTATIN 40 MG TABLET PO SCH (21:36)
[2017-11-28] MEDS: DiphenhydrAMINE 25 MG CAPSULE PO SCH ×4 (03:58→21:37)
--- NOTE | 2017-11-28 07:41 | Ultrasound Report ---
Indication: edema PROCEDURE: US venous doppler LE RT: Encounter: Initial Comparison: None Technique: Color Doppler duplex and grayscale sonographic imaging of the right lower extremity was performed. Findings: There is deep vein thrombosis from the common femoral vein extending through the popliteal vein. This is nonocclusive in the common femoral and popliteal veins and appears occlusive throughout the superficial femoral vein. Specifically, serial graded compression was performed from the inguinal ligament to the popliteal bifurcation, on the right thigh, demonstrating poor compressibility of the deep venous system. In addition, color and pulsed Doppler demonstrate decreased or absent flow, variation with respiration, and augmentation with calf compression. At the ankle, normal flow is identified in the posterior tibial veins; these vessels are also normal in caliber. Subcutaneous edema. Impression: DVT as above. There is a preliminary report by [facility]. .
[2017-11-28] MEDS: ACYCLOVIR 200 MG CAPSULE PO SCH ×2 (08:44→21:37)
[2017-11-28] MEDS: PHOSPHORUS 250 MG TABLET PO SCH (08:44)
[2017-11-28] MEDS: CALCITRIOL 0.25 MCG CAPSULE PO SCH (08:45)
[2017-11-28] MEDS: FLUCONAZOLE 100 MG TABLET PO SCH (08:46)
[2017-11-28] MEDS: ENOXAPARIN 150 MG/ML INJECTION SQ SCH (08:46)
[2017-11-28] MEDS ORDERED: DIGOXIN 125 MCG TABLET PO SCH (09:00)
--- NOTE | 2017-11-28 09:56 | Infectious Disease Consult ---
Infectious Disease Consult Date of Consultation: 11/28/17 Requesting Physician: Daxa Goel Reason for Consultation: antibiotic recs History of Present Illness: Mr. Jones is a 67 y/o man with a history of lung cancer and renal cell carcinoma diagnosed earlier this year. He also per report was hospitalized at [facility] in August with disseminated herpes zoster. He states that he had blisterlike lesions on the right foot and a couple lesions on the right hip. He was admitted here November 21 with weakness and dehydration. His reports that there was some redness noted around his port a few days prior to admission and about at that same time he developed increased fatigue. Admission he had a white blood cell count of 16.1. Chest x-ray was negative. His blood culture drawn through his port was positive for MRSA. The peripheral blood culture was negative. His port was removed on November 22. The catheter tip culture was negative. On admission he was also noted to have some generalized rash as well as some rash in the groin area at the corners of his mouth and near his eyes. He was started on IV antibiotics including IV acyclovir. He had a varicella- zoster virus directs FA test done on a skin lesion which returned negative. He reports that he has had some diarrhea over the last few weeks but this seems to be improving. He is also continued to have rash on his arms and chest and neck which is itching. He had a midline place in the left upper extremity. Yesterday he was found to have a DVT in the right lower extremity. I've been asked to help with his antibiotics. Medications Home Medications Medication Instructions Recorded Confirmed Type Atorvastatin [Lipitor] 40 mg PO HS 04/27/17 11/21/17 History Aspirin 325 mg PO DAILY 08/10/17 11/21/17 History Atenolol [Tenormin] 50 mg PO DAILY 08/10/17 11/21/17 History Acetaminophen [Tylenol] 500 mg PO Q5H PRN 09/08/17 11/21/17 History Lisinopril [Prinivil] 10 mg PO DAILY 09/08/17 11/21/17 History Oxycodone/Acetaminophen 5/325 1 tab PO TID PRN 09/08/17 11/21/17 History [Percocet 5/325] Acyclovir [Acyclovir] 400 mg PO BID 11/21/17 11/21/17 History Magnesium Oxide [Magnesium] 400 mg PO BID 11/21/17 11/21/17 History Metformin HCl [Metformin HCl] 1,000 mg PO BID 11/21/17 11/21/17 History Allergies Allergy/AdvReac Type Severity Reaction Status Date / Time Penicillins Allergy Unknown unknown Verified 11/21/17 13:55 [facility] Patient Stated Medical History Cardiac Arrhythmia Yes: AFIB PER H&P Coronary Artery Disease Yes: PER H&P LAD 90% stenosis EF 60% Hypertension Yes Hypotension Yes Myocardial Infarction No Pneumonia Pt Denies Hx of pneumonia Sleep Apnea Yes: Pt denies sleep apnea Diabetes Mellitus Type 1 No Diabetes Mellitus Type 2 Yes Other GI Yes: COLON CANCER Hx Renal Disease Yes: Renal Cell Carcinoma/Partial Nephrectomy Other Yes: hx renal cancer Anemia Yes: Hx- 'lightly' per pt Osteoarthritis Yes Other Musculoskeletal Yes: Hip discomfort-right/right knee discomfort Shingles Yes: August 2017 Other Yes: POWER PORT PLACEMENT Medical History Updates: CAD. A-fib per prior H&P. Sleep apnea (pt denies). Diabetes mellitus, type 2. Hypertension. Hyperlipidemia. Obesity - BMI 37. Chronic anemia. 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 Disseminated Shingles 08/2017 transferred to [place]. Surgical History: Colonoscopy adenocarcinoma at 20 cm 06/20/2017. Low anterior resection-2 (+) nodes 07/06/17- [facility]. Partial right nephrectomy-renal clear cell carcinoma 07/06/17- Dr. Sheriff. Power Port -08/11/2017. Cholecystectomy 2012- [facility]. Cardiac catheterization EF 60%, diatal LAD 90% stenosis Jose J Family History: Family History (Last Reviewed 08/03/17 @ 14:49 by Loreto Galdamez Myriam) Mother , age 83 Diabetes High blood pressure Heart attack Brother Diabetes High blood pressure Heart attack Stroke Sister Diabetes Heart attack High blood pressure Stroke Family History Updates: Mother , age 83. Diabetes. HTN ( hypertension). Heart attack. Brother. Diabetes. HTN (hypertension). Heart attack. Stroke. Sister. Diabetes. Heart attack. HTN (hypertension). Stroke - Social History Smoking status: Former smoker (quit 42 yrs ago) second hand exposure: No Substance use type: does not use Alcohol intake frequency: does not drink Housing: house Household members: spouse Current occupational status: retired Does patient use chewing tobacco?: No Current residence: Apartment/Private Home Review of Systems All systems PM: 10-point ROS was reviewed, no additional remarkable complaints except - Constitutional Constitutional: Absent: fever(s), headache(s) - Cardiovascular Cardiovascular: Absent: edema - Gastrointestinal Gastrointestinal: Present: diarrhea. Absent: abdominal pain, nausea, vomiting - Genitourinary Genitourinary: Absent: dysuria - Integumentary/Breasts Integumentary: Present: pruritus, rash - Neurological Neurological: Absent: headache(s) - Hematologic/Lymphatic Hematologic/Lymphatic: Present: easy bruising Exam Vital Signs: Temperature 96.7 F L 11/28/17 07:59 Pulse Rate 108 H 11/28/17 08:45 Respiratory Rate 20 11/28/17 07:59 Blood Pressure 108/67 11/28/17 07:59 Pulse Oximetry 98 11/28/17 07:59 Height/Weight/BMI: Height 1.83 m Weight 128 kg Body Mass Index 34.6 - Constitutional Present: no acute distress, well nourished, well developed - Routine HEENT Exam Head: Present: normocephalic, atraumatic Eye: Present: EOMI, PERRL ENT: Present: mucous membranes moist, oropharynx clear - Routine Neck Exam Present: supple - Routine Respiratory Exam Present: CTA bilaterally - Routine Cardiovascular Exam Present: RRR - Routine Abdominal Exam Present: soft, normoactive bowel sounds, non distended, non tender - Routine Exam Comments: no barnett - Routine Extremities Exam Present: edema (RLE with 2+ edema). Absent: cyanosis, clubbing - Routine Skin Exam Present: rash (over RUEs, upper chest and neck, also peeling skin over eyelids bilaterally. Fading rash in groin area. Some lesions on RLE, scabbed. No lesions that look like active shingles) Comments: former Port site covered - Routine Neurological Exam Present: alert, oriented X3, CN II-XII intact - Routine Psychiatric Exam Present: normal affect Results - Labs CBC & Chem 7: 11/28/17 04:37 11/28/17 04:37 Microbiology Results: Microbiology 11/21/17 18:53 Lesion Varicella-Zoster Virus Direct FA - Final 11/22/17 12:55 Catheter Tip, Picc Catheter Tip Culture - Final No Growth After 3 Days 11/21/17 15:34 Urine, Voided (Cc/notcc) Urine Culture - Final No Growth After 2 Days Impression: Septic shock secondary to port infection Septicemia with MRSA secondary to infected Port Rash on arms and upper body - ? 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 difficile on 11/21/2017 Metabolic acidosis-resolved Recommendation: I would recommend Vancomycin for 2 weeks from the date the port was removed. This would go through 12/06/17. I'd consider trying a topical steroid for his eyelid rash vs Dermatology consult. Would continue Acyclovir at prophylactic dosing. Monitor counts. Recommend replacing port after infection is treated.
[2017-11-28] MEDS: DIPHENHYDRAMINE 2% CREAM 28gm TOP PRN ×3 (11:09→21:21)
[2017-11-28] MEDS: TERFINAFINE 1% CREAM 12 G TUBE TOP SCH ×2 (11:11→21:21)
[2017-11-28] MEDS: AQUAPHOR TOPICAL OINTMENT 52.5 G TUBE TP SCH ×4 (11:12→21:20)
[2017-11-28] MEDS: NYSTATIN OINTMENT 15gm TP SCH ×3 (11:12→21:18)
[2017-11-28] MEDS: ATENOLOL 25 MG TABLET PO SCH ×2 (11:13→21:16)
[2017-11-28] MEDS: TBO-FILGRASTIM 480mcg/0.8ml INJECTION SQ SCH (15:22)
[2017-11-28] MEDS ORDERED: DIGOXIN 125 MCG TABLET PO ONE (16:01)
[2017-11-28] MEDS: HYDROCORTISONE 0.5% TOP PRN (17:07)
[2017-11-28] MEDS: RIVAROXABAN 15 MG TABLET PO SCH (17:08)
[2017-11-28] MEDS: SALINE FLUSH 10ml SYRINGE IVF PRN (17:09)
[2017-11-28] MEDS: MAGNESIUM OXIDE 400 MG TABLET PO SCH (21:16)
[2017-11-28] MEDS: ATORVASTATIN 40 MG TABLET PO SCH (21:16)
--- NOTE | 2017-11-28 21:48 | Progress Note ---
- Date 11/28/17 Subjective: Mr. Jones was seen with his at bedside. He had no particular concerns other than some itching on his forearms and eyelids. Generalized itching was more controlled today. He reports having small formed bowel movement earlier and that diarrhea has resolved. Edema in the right leg is unchanged but he denied pain. He is looking forward to discharge soon and denied dyspnea, nausea , or vomiting. Appetite is good and he is ambulating from bed to bathroom without difficulty with staff or his 's assistance. Objective Vital signs: Temperature 98.6 F 11/28/17 20:00 Pulse Rate 110 H 11/28/17 20:00 Respiratory Rate 18 11/28/17 20:00 Blood Pressure 122/70 11/28/17 20:00 Pulse Oximetry 97 11/28/17 20:00 NAD, alert Slight flaking noted along the upper eyelids, conjunctiva clear, sclera anicteric Respirations nonlabored, good airflow, breath sounds clear Irregular rhythm, S1-S2-not is tachycardic as he has been prior days Abdomen soft, obese, nontender, bowel sounds present Skin as previously described Mood upbeat, cooperative Moving all extremities well, speech fluent Rhythm: Atrial Fibrillation with Normal Ventricular Rate, Atrial Fibrillation with RVR Height/Weight/BMI: Height 1.83 m Weight 128 kg Body Mass Index 34.6 Results - Labs CBC & Chem 7: 11/28/17 04:37 11/28/17 04:37 Labs: S20 L72 M4 E4 Magnesium 1.6, phosphorus 1.8, calcium 8.1, albumin 2.8 Microbiology Results: Microbiology 11/21/17 18:53 Lesion Varicella-Zoster Virus Direct FA - Final 11/22/17 12:55 Catheter Tip, Picc Catheter Tip Culture - Final No Growth After 3 Days 11/21/17 15:34 Urine, Voided (Cc/notcc) Urine Culture - Final No Growth After 2 Days Assessment and Plan (1) Severe sepsis Current visit: Yes Status: Acute Assessment and Plan: Impression Septic shock -Leukocytosis- WBC- 16.4, Tachycardia- 120, Lactate- 4.4 MRSA positive blood culture from Port-A-Cath/probable Port-A-Cath infection - PAC removed 11/22/17 Groin rash- acute excoriation, probable fungal infection but cannot rule out secondary cellulitis Possible vesicular rash with herpes zoster versus impetigo on the corners of his mouth Oral ulcers mainly on the tongue Immunocompromised on chemotherapy Hypomagnesemia Hypokalemia Hypocalcemia Hypophosphatemia Thrombocytopenia Microcytic anemia- transfuse 11/26. 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 difficile on 11/21/2017 Metabolic acidosis-resolved Plan: s/p PAC removal 11/22. Continue Vanco IV for treatment of MRSA bacteremia. Discussed with Dr. Baez- plan 2 weeks vancomycin from date of PAC removal (12/06/17). Discussed vancomycin dosing with pharmacy, does converted to 2 g IV every 24 hours in anticipation of discharge home with outpatient antibiotics through infusion center. Add topical steroid for facial pruritus-hydrocortisone 1% ordered. Continue topical emollients and Benadryl for symptom control on the arms/neck/ chest-patient reports significant control of pruritus with topical Benadryl. Continue acyclovir prophylactic dose in conjunction with oral Diflucan. Platelet count improving but remains neutropenic; day 4 Granix. DVT identified yesterday and started on Lovenox; discussed with Dr. Richardson and will convert to Xarelto for outpatient therapy. Xarelto 15 mg by mouth twice a day 21 days (11/28-12/19)--> Xarelto 20 mg daily starting 12/20. Telemetry reviewed-atrial fibrillation with persistent tachycardia, monitors reports heart rate increases 240 with minimal activity. Continue digoxin but increase dose to 0.25 mg daily. Continue atenolol 50 mg daily-blood pressure does not permit higher dose at this time. Increase magnesium dose orally. Continue oral phosphorus and oral vitamin D replacement therapy. Hope to coordinate discharge tomorrow if IV antibiotics can be set up. DVT Prophylaxis: Xarelto Resuscitation Status: Full Code - Physician Narrative Narrative: Date: 11/28/17 Time: 2144 Hospital Course Summary Disclaimer: The visit summary below is not to be considered part of the above Progress Note. Hospital Course: 11/21/17 Admitted with septic shock, likely skin source with fungal infection in the groin and possible secondary bacterial cellulitis. Possible oral herpes. A. fib with RVR-fib chronic. Monitor closely in CCU. Give 30 mL's per kilogram of normal saline. Repeat lactate and basic metabolic profile. Give magnesium 3 g IV. Recheck magnesium. Potassium was replaced orally and will recheck. The patient was started on Levaquin, vancomycin and cefepime in the emergency room. We'll continue for now and recheck chest x-ray tomorrow. IV Diflucan was started for candidiasis of the groin. IV acyclovir will be started for possible disseminated shingles. Skin swab was taken to rule out shingles. Wound and skin consult Stool for C. difficile regarding diarrhea Discussed with infectious disease specialist by phone Accu-Cheks, sliding scale insulin, DC metformin for now. 11/22/17 Dr. Porras was consulted for probable Port-A-Cath infection. Plan for removal later today. Will obtain cultures of the Port-A-Cath. Continue vancomycin for MRSA positive blood culture. Discussed with Dr. Baez. We'll discontinue Levaquin and cefepime. Continue IV Diflucan and acyclovir for now. Continue IV fluids for now while patient is nothing by mouth. Can DC IV fluids when taking by mouth well and urine output has improved. Continue atenolol 25 mg by mouth twice a day for rate control for A. fib Replace magnesium IV. Replace potassium orally Replace calcium IV and orally. Recheck magnesium, potassium and calcium this afternoon. Monitor Accu-Cheks, give sliding scale insulin as needed. 11/23/17 Dr. Porras removed Port-A-Cath yesterday due to concern about PAC infection; culture of catheter tip pending. Vancomycin dose adjusted in response to elevated trough earlier today. Final sensitivities pending however patient is penicillin sensitive so continuation of vancomycin anticipated. Remains on IV Diflucan and acyclovir for now fungal dermatitis involving the pannus/feet and possible oral herpes zoster-swab pending. Oral intake improved, discontinue IV fluids. Blood pressure stable. Ongoing electrolyte replacement. 11/24/17 PAC removed 11/22/17 due to positive blood culture drawn from port and evidence of inflammation present on admission; confirmed MRSA. Continue vancomycin. Will discuss with further with Dr. Baez tomorrow. Oral intake improved, discontinue IV fluids. Blood pressure stable. Persistent tachycardia, atenolol dose increased to 75 mg total daily. Current chemotherapy comprised of Vectibix and Folfox (leucovorin, fluorouracil , and oxaliplatin)-magnesium wasting and rashes associated with Vectibix. Continue IV replacement of magnesium; Rocaltrol started for suspected vitamin D deficiency in conjunction with oral calcium. Check ionized calcium in a.m. 1, 25 dihydroxy vitamin D being obtained in addition to previously known low 25- [place] D. 11/25/17 PAC removed 11/22/17 due to positive blood culture drawn from port and evidence of inflammation present on admission; confirmed MRSA. Day #5 vancomycin. WBC 16.1 on admission down to 2.6 today. He was scheduled to receive GCSF at Dr. Richardson's office and only had his 1st dose the day he was admitted to the hospital. Will proceed with Granix 480mcg daily and follow counts. Discussed with Dr. Richardson's office. Follow hgb - down to 7.3 today. Aquaphor to arms for dry skin. Lamisil to feet for tinea pedis. DFA for varicella-zoster negative per verbal report of lab. Accu-Cheks discontinued-consistently below 150. 11/26/17 Day #6 vancomycin. Persistent tachycardia, atenolol dose increased to 75 mg/d 2 days ago but with lower blood pressures will decrease back to 25 twice a day. Hemoglobin has been dropping progressively, now under 7 and will transfuse 1 unit leuko-poor irradiated PRBCs today. Continue G-CSF for neutropenia following recent chemotherapy. Current chemotherapy comprised of Vectibix and Folfox (leucovorin, fluorouracil , and oxaliplatin)-magnesium wasting and rashes associated with Vectibix. Remains on Diflucan and acyclovir IV due to extent of rashes present on admission. Varicella-zoster DFA negative-discontinue acyclovir--resume home dose by mouth, convert to oral Diflucan. Magnesium replacement IV again today; potassium improved-oral replacement ongoing; calcium level improving following initiation of Rocaltrol. Phosphorus has been normal for 4 rixt-Kotfiw-Pdbh discontinued. Continue bladder retraining. Anticipate DC Wesley in a.m. 11/27/17 s/p PAC removal 11/22. Continue Vanco IV for treatment of MRSA bacteremia. Consider ID consult. Recent disseminated VZV- On acyclovir. F/U swab negative for recurrence. Continue scattered lesions- underlying source? He reports improvement. If no significant improvement, could consider scraping for scabies as well. Lesions can also be S/E of chemotherapy. Will schedule Benadryl for itching- monitor for sedation. New unilateral LE edema- check venous doppler. SCDs ordered, but not currently on. Higher risk for bleeding given low platelets, so hold off on blood thinners at this time. No Lasix given lower BP today. HR remains elevated- start tele. Continue lower dose BB. Add dig to help with HR control w/o further lowering BP. Continue close monitoring of labs, vitals. Remains complicated and ill. Magnesium is quite low- replace IV. Minor decrease in PO4- replace PO. Calcium is low, but so is albumin. Hold PO Calcium until Phos replacement is completed. Chart, documentation, imaging reviewed. 11/28/17 Continue Vanco IV for treatment of MRSA bacteremia. Discussed with Dr. Baez- plan 2 weeks vancomycin from date of PAC removal (12/06/17). Discussed vancomycin dosing with pharmacy, does converted to 2 g IV every 24 hours in anticipation of discharge home with outpatient antibiotics through infusion center. Add topical steroid for facial pruritus-hydrocortisone 1% ordered. Continue topical emollients and Benadryl for symptom control on the arms/neck/ chest-patient reports significant control of pruritus with topical Benadryl. Continue acyclovir prophylactic dose in conjunction with oral Diflucan. Platelet count improving but remains neutropenic; day 4 Granix. DVT identified yesterday and started on Lovenox; discussed with Dr. Richardson and will convert to Xarelto for outpatient therapy. Xarelto 15 mg by mouth twice a day 21 days (11/28-12/19)--> Xarelto 20 mg daily starting 12/20. Telemetry reviewed-atrial fibrillation with persistent tachycardia, monitors reports heart rate increases 240 with minimal activity. Continue digoxin but increase dose to 0.25 mg daily. Continue atenolol 50 mg daily-blood pressure does not permit higher dose at this time. Increase magnesium dose orally. Continue oral phosphorus and oral vitamin D replacement therapy. Hope to coordinate discharge tomorrow if IV antibiotics can be set up.
[2017-11-29] MEDS: DiphenhydrAMINE 25 MG CAPSULE PO SCH ×3 (03:00→16:50)
[2017-11-29 07:23] VITALS: BP 100/61; RESP 26; TEMP 97.8; O2SAT 97
[2017-11-29] MEDS: CALCIUM 600 + VIT D 400 TABLET PO SCH (08:06)
[2017-11-29] MEDS: ACYCLOVIR 200 MG CAPSULE PO SCH (08:06)
[2017-11-29] MEDS: RIVAROXABAN 15 MG TABLET PO SCH (08:06)
[2017-11-29] MEDS: SALINE FLUSH 10ml SYRINGE IVF PRN (08:06)
[2017-11-29] MEDS: CALCITRIOL 0.25 MCG CAPSULE PO SCH (08:06)
[2017-11-29] MEDS: ATENOLOL 25 MG TABLET PO SCH ×2 (08:07→16:54)
[2017-11-29] MEDS: MAGNESIUM OXIDE 400 MG TABLET PO SCH (08:08)
[2017-11-29] MEDS: FLUCONAZOLE 100 MG TABLET PO SCH (08:08)
[2017-11-29] MEDS: NYSTATIN OINTMENT 15gm TP SCH ×2 (08:08→16:50)
[2017-11-29] MEDS: AQUAPHOR TOPICAL OINTMENT 52.5 G TUBE TP SCH ×2 (08:09→16:50)
[2017-11-29] MEDS: TERFINAFINE 1% CREAM 12 G TUBE TOP SCH (08:09)
[2017-11-29] MEDS: DIPHENHYDRAMINE 2% CREAM 28gm TOP PRN (08:10)
[2017-11-29] MEDS: NS FLUSH BAG 500ml IV PRN (08:11)
[2017-11-29] MEDS: HYDROCORTISONE 0.5% TOP PRN (08:25)
[2017-11-29] MEDS ORDERED: DIGOXIN 250 MCG TABLET PO SCH (09:00)
[2017-11-29] MEDS: MAGNESIUM SULFATE 1gm PREMIX 1 GM/100 ML BAG IV SCH ×2 (11:31→12:51)
[2017-11-29 13:05] VITALS: PULSE 98
--- NOTE | 2017-11-29 14:26 | Wound Care Progress Note ---
Wound Center Progress Note: Received an Antifungal barrier cream by , took to the pt and discussed that he or his should apply it under his pannis, around his scrotum and under his arms where he is having yeast like rashes. Explained to pt that this is a sample that I called for to see if it would help, and explained that if it did help for them to call the wound clinic for assistance to obtain more.
[2017-11-29] MEDS: TBO-FILGRASTIM 480mcg/0.8ml INJECTION SQ SCH (16:50)
--- NOTE | 2017-11-29 23:03 | Discharge Summary ---
Discharge Information Date of admission: 11/21/17 15:08 Anticipated date of discharge: 11/29/17 Attending Physician: Daxa Goel MD Primary care physician: Brandon Mejia MD Consults: Consulting Provider: Saulo Porras Reason For Exam: infected port? Consulting Provider: Tomeka Baez Reason For Exam: line sepsis - Discharge Diagnosis (1) Septic shock Status: Acute Septic shock MRSA Port-A-Cath infection - PAC removed 11/22/17 Groin rash- acute excoriation, probable fungal infection but cannot rule out secondary cellulitis Possible vesicular rash with herpes zoster versus impetigo on the corners of his mouth Oral ulcers mainly on the tongue Acute DVT, right lower extremity Immunocompromised on chemotherapy Hypomagnesemia, recurrent Hypokalemia Hypocalcemia Hypophosphatemia Thrombocytopenia Microcytic anemia- transfuse 11/26. Colon cancer Renal cell cancer Chronic atrial fibrillation, intermittent RVR Chronic diastolic heart failure Hypertension-well controlled Type II diabetes-fair control Recent disseminated herpes zoster of right lower extremity-August 2017 Diarrhea, negative C. difficile on 11/21/2017 Metabolic acidosis-resolved - Procedures Procedures: Removal/explantation of [id number] on 11/22/17 - Laboratory Labs: On admission white count 16.1 with 97% neutrophils, hemoglobin 10.5, platelet count 119K. admission chemistries notable only for potassium 3.1, magnesium 0.7 , calcium 7.1, lactic acid 1.4. 25-OH vitamin D total 15.1 on 11/21; 1, 25 dihydroxy vitamin D pending at discharge A1C 6.0 on 11/2111/29/17 04:12 11/29/17 04:12 - Microbiology Microbiology 11/21/17 18:53 Lesion Varicella-Zoster Virus Direct FA -negative 11/21/17 14:18 Peripheral/Iv Start Blood Culture - Final No Growth After 5 Days 11/22/17 12:55 Catheter Tip, Picc Catheter Tip Culture - Final No Growth After 3 Days 11/21/17 14:14 Port/Picc Gram Stain - Final 11/21/17 14:14 Port/Picc Blood Culture - Final Staphylococcus aureus, MRSA 11/21/17 15:34 Urine, Voided (Cc/notcc) Urine Culture - Final No Growth After 2 Days - Radiology Radiology: Chest x-ray on 11/21/17: The lungs are radiographically clear without evidence of focal abnormal airspace opacity. There is no pleural effusion or pneumothorax. Right IJ port catheter. The heart size, mediastinal contours and pulmonary vascularity are within normal limits. There is no significant skeletal abnormality. IMPRESSION: No acute cardiopulmonary disease. ----- Right lower extremity venous Doppler on 11/27/17: There is deep vein thrombosis from the common femoral vein extending through the popliteal vein. This is nonocclusive in the common femoral and popliteal veins and appears occlusive throughout the superficial femoral vein. Specifically, serial graded compression was performed from the inguinal ligament to the popliteal bifurcation, on the right thigh, demonstrating poor compressibility of the deep venous system. In addition, color and pulsed Doppler demonstrate decreased or absent flow, variation with respiration, and augmentation with calf compression. At the ankle, normal flow is identified in the posterior tibial veins; these vessels are also normal in caliber. Subcutaneous edema. Impression: DVT as above. History of Present Illness HPI: Patient is a 67-year-old male who presented to receive his current blood counts stimulating medication outpatient at [facility] today. He reported feeling weak. He was given a liter of IV fluids. However, continued to feel weak, was then directed to the emergency room for acute evaluation. BC revealed leukocytosis with white count of 16.1, platelet count 119. His potassium is low at 3.1 otherwise was unremarkable. Chest x-ray negative for acute cardiopulmonary process. Blood cultures and urine culture were obtained. Patient was started on triple antibiotic therapy including vancomycin, Levaquin , cefepime. IV fluid bolus of 30 mL per kilo as per sepsis protocol. The hospitalist services were contacted and accepted patient for inpatient admission to the ICU for ongoing treatment. Patient is seen while in the emergency room, his to be tachycardic in the 120s, blood pressure stable 130/60, room air saturations 100%. Patient reports that he was recently hospitalized from 09/08/17 and till 09/15/17 at [facility] for disseminated herpes zoster. He underwent one week during hospitalization of IV azithromycin, followed by one week of oral azithromycin. Patient is immunocompromised as he is currently undergoing chemotherapy for colon and renal cell cancer. He last had 11/15/17 under the care of Dr. Teixeira. Patient noted since that time he has had some oral lesions around his mouth that have become irritating. Patient is noted to have red irritation to his chest and bilateral forearms. He states that all of these lesions have been chronic and he attributes it to "dry skin". He does have some rash to the right lower extremity that appears to be old, patient states this is where his shingles previously were. Patient does have excoriation to his coccyx region as well as bilateral groin folds. No noted vesicles in these locations. Patient does report to be Full Code. Objective Vital signs: Temperature 97.8 F 11/29/17 07:22 Pulse Rate 98 11/29/17 13:05 Respiratory Rate 26 H 11/29/17 07:22 Blood Pressure 100/61 11/29/17 07:22 Pulse Oximetry 97 11/29/17 07:22 NAD, alert Rubbing arms repetitively, mild erythema persists on the arms, intertrigo under the pannus and in the groin creases Respirations nonlabored, breath sounds clear Irregular rhythm, S1-S2 +2 edema RLE with pitting, +1 edema LLE Rhythm: Atrial Fibrillation with Normal Ventricular Rate, Atrial Fibrillation with RVR Height/Weight/BMI: Height 1.83 m Weight 125.9 kg Body Mass Index 34.6 Hospital Course This is a general summary of the patient's hospital course. For more details refer to the complete medical record. Hospital course: 11/21/17 Admitted with septic shock, likely skin source with fungal infection in the groin and possible secondary bacterial cellulitis. Possible oral herpes. A. fib with RVR-fib chronic. Monitor closely in CCU. Give 30 mL's per kilogram of normal saline. Repeat lactate and basic metabolic profile. Give magnesium 3 g IV. Recheck magnesium. Potassium was replaced orally and will recheck. The patient was started on Levaquin, vancomycin and cefepime in the emergency room. We'll continue for now and recheck chest x-ray tomorrow. IV Diflucan was started for candidiasis of the groin. IV acyclovir will be started for possible disseminated shingles. Skin swab was taken to rule out shingles. Wound and skin consult Stool for C. difficile regarding diarrhea Discussed with infectious disease specialist by phone Accu-Cheks, sliding scale insulin, DC metformin for now. 11/22/17 Dr. Porras was consulted for probable Port-A-Cath infection. Plan for removal later today. Will obtain cultures of the Port-A-Cath. Continue vancomycin for MRSA positive blood culture. Discussed with Dr. Baez. We'll discontinue Levaquin and cefepime. Continue IV Diflucan and acyclovir for now. Continue IV fluids for now while patient is nothing by mouth. Can DC IV fluids when taking by mouth well and urine output has improved. Continue atenolol 25 mg by mouth twice a day for rate control for A. fib Replace magnesium IV. Replace potassium orally Replace calcium IV and orally. Recheck magnesium, potassium and calcium this afternoon. Monitor Accu-Cheks, give sliding scale insulin as needed. 11/23/17 Dr. Porras removed Port-A-Cath yesterday due to concern about PAC infection; culture of catheter tip pending. Vancomycin dose adjusted in response to elevated trough earlier today. Final sensitivities pending however patient is penicillin sensitive so continuation of vancomycin anticipated. Remains on IV Diflucan and acyclovir for now fungal dermatitis involving the pannus/feet and possible oral herpes zoster-swab pending. Oral intake improved, discontinue IV fluids. Blood pressure stable. Ongoing electrolyte replacement. 11/24/17 PAC removed 11/22/17 due to positive blood culture drawn from port and evidence of inflammation present on admission; confirmed MRSA. Continue vancomycin. Will discuss with further with Dr. Baez tomorrow. Oral intake improved, discontinue IV fluids. Blood pressure stable. Persistent tachycardia, atenolol dose increased to 75 mg total daily. Current chemotherapy comprised of Vectibix and Folfox (leucovorin, fluorouracil , and oxaliplatin)-magnesium wasting and rashes associated with Vectibix. Continue IV replacement of magnesium; Rocaltrol started for suspected vitamin D deficiency in conjunction with oral calcium. Check ionized calcium in a.m. 1,25 dihydroxy vitamin D being obtained in addition to previously known low 25- OH D. 11/25/17 Day #5 vancomycin. WBC 16.1 on admission, down to 2.6 today. He was scheduled to receive GCSF at Dr. Richardson's office and only had his 1st dose the day he was admitted to the hospital. Will proceed with Granix 480mcg daily and follow counts. Discussed with Dr. Richardson's office. Follow hgb - down to 7.3 today. Aquaphor to arms for dry skin. Lamisil to feet for tinea pedis. DFA for varicella-zoster negative per verbal report of lab. Accu-Cheks discontinued-consistently below 150. 11/26/17 Day #6 vancomycin. Persistent tachycardia, atenolol dose increased to 75 mg/d 2 days ago but with lower blood pressures will decrease back to 25 twice a day. Hemoglobin has been dropping progressively, now under 7 and will transfuse 1 unit leuko-poor irradiated PRBCs today. Continue G-CSF for neutropenia following recent chemotherapy. Current chemotherapy comprised of Vectibix and Folfox (leucovorin, fluorouracil , and oxaliplatin)-magnesium wasting and rashes associated with Vectibix. Remains on Diflucan and acyclovir IV due to extent of rashes present on admission. Varicella-zoster DFA negative-discontinue acyclovir--resume home prophylaxis dose by mouth, convert to oral Diflucan. Magnesium replacement IV again today; potassium improved-oral replacement ongoing; calcium level improving following initiation of Rocaltrol. Phosphorus has been normal for 4 apqj-Yvhola-Guhz discontinued. Continue bladder retraining. Anticipate DC Wesley in a.m. 11/27/17 Continue Vanco IV for treatment of MRSA bacteremia. Recent disseminated VZV- On po acyclovir. Continue scattered lesions- underlying source? He reports improvement. Lesions can also be S/E of chemotherapy. Will schedule Benadryl for itching- monitor for sedation. New unilateral LE edema-venous Doppler positive for occlusive DVT right thigh and popliteal veins. Anticoagulation initiated with therapeutic Lovenox. No Lasix given lower BP today. HR remains elevated- start tele. Continue lower dose BB. Add dig to help with HR control w/o further lowering BP. Magnesium is quite low- replace IV. 11/28/17 Continue Vanco IV for treatment of MRSA bacteremia. Discussed with Dr. Baez- plan 2 weeks vancomycin from date of PAC removal (12/06/17). Discussed vancomycin dosing with pharmacy, does converted to 2 g IV every 24 hours in anticipation of discharge home with outpatient antibiotics through infusion center. Add topical steroid for facial pruritus-hydrocortisone 1% ordered. Continue topical emollients and Benadryl for symptom control on the arms/neck/ chest-patient reports significant control of pruritus with topical Benadryl. Continue acyclovir prophylactic dose in conjunction with oral Diflucan. Platelet count improving but remains neutropenic; day 4 Granix. DVT identified yesterday and started on Lovenox; discussed with Dr. Richardson and will convert to Xarelto for outpatient therapy. Xarelto 15 mg by mouth twice a day 21 days (11/28-12/19)--> Xarelto 20 mg daily starting 12/20. Telemetry reviewed-atrial fibrillation with persistent tachycardia, monitors reports heart rate increases 240 with minimal activity. Continue digoxin but increase dose to 0.25 mg daily. Continue atenolol 50 mg daily-blood pressure does not permit higher dose at this time. Increase magnesium dose orally. Continue calcium and oral vitamin D replacement therapy. Hope to coordinate discharge tomorrow if IV antibiotics can be set up. 11/29/17 Doing well and anxious for discharge today. Patient reports no concerns at this time other than continued itching of the skin. Denies lightheadedness or fever. Blood sugars remain well controlled off metformin and blood pressure is stable off lisinopril. Medications reviewed extensively with patient and his . Wound care has provided a new antifungal barrier cream for use on the abdominal wall/under the pannus, and the groin creases. Received initial dose of vancomycin 2 g IV daily this morning at approximately 7 AM; scheduled to continue daily dosing at infusion center at [facility] starting tomorrow morning through 12/06. Midline catheter will remain in with catheter care provided at the infusion center. Continue Port-A-Cath can be implanted after antibiotic course is completed. Repeat vancomycin trough on Saturday 12/02. Received fifth dose Granix daily for neutropenia-white count beginning to improve based on today's WBC/differential. Required 1 unit packed red blood cells during the hospitalization with stable hemoglobin after transfusion on 11/26. Platelet count clearly recovering. Patient remains on Xarelto for DVT; digoxin in conjunction with lower dose atenolol for rate control atrial fibrillation. Multiple skin products. Continues to require magnesium replacement in conjunction with calcium replacement and vitamin D/Rocaltrol due to marked hypocalcemia. Stable for discharge, to follow up at cancer center for blood counts per routine. Asked to follow up with Dr. Mejia for reassessment of blood pressure, blood sugars, and electrolytes in one week. Time spent with patient: discharge greater than 30 minutes Resuscitation Status: Full Code Discharge Plan - Discharge Disposition Discharge Date: 11/29/17 Disposition: 01 Discharged Home, Self-Care *Condition: Stable Reason For Visit (Visit label in EMR): septic shock - Discharge Medications *Discharge Medications: New Aspirin Chewable [ASA] 81 mg PO DAILY #100 tab.chew Calcitriol [Rocaltrol] 0.25 mcg PO DAILY #30 cap Calcium 600 + D [Caltrate + D] 1 tab PO BID tab DiphenhydrAMINE [Benadryl] 25 mg PO Q4H PRN cap PRN Reason: Itching Diphenhydramine Cream [Benadryl Extra Strength Cream] 1 applicatio TOP TID PRN tube PRN Reason: Itching Hydrocortisone 0.5% Cream [Cortisone Cream] 1 applicatio TOP QID PRN tube PRN Reason: Itching Rivaroxaban [Xarelto] 20 mg PO WS #30 tab Rivaroxaban [Xarelto] 15 mg PO BIDWM #42 tab Terbinafine Cream [LamISIL AT] 1 applicatio TOP BID tube Aquaphor 1 applicatio TP TID tube Digoxin [Lanoxin] 250 mcg PO DAILY #30 tab Vancomycin [Vancocin] 2,000 mg IV 0830 vial Continue Atorvastatin [Lipitor] 40 mg PO HS Acetaminophen [Tylenol] 500 mg PO Q5H PRN PRN Reason: Pain Oxycodone/Acetaminophen 5/325 [Percocet 5/325] 1 tab PO TID PRN PRN Reason: Pain Lisinopril [Prinivil] 10 mg PO DAILY Magnesium Oxide [Magnesium] 400 mg PO BID Acyclovir 400 mg PO BID Atenolol [Tenormin] 50 mg PO DAILY Discontinued Aspirin 325 mg PO DAILY Metformin HCl 1,000 mg PO BID - Discharge Packet/Instructions *Diet: Low-salt, low-fat, diabetic *Activity: As tolerates; avoid large crowds due to low white count from chemotherapy *Pain Management/Treatment: Tylenol or Percocet (oxycodone) if medicine needed *Wound Care: Use antifungal cream provided by wound care on the rash in skin folds of your abdomen, right armpit, and in the groin creases; cover with coffee filters as a drying agent. Use Lamisil (terbinafine) cream on your feet and between your toes. Additional Instructions: 1. Monitor blood sugars regularly, if starts to run above [address] Landers about restarting Metformin. 2. Take Xarelto 15 mg twice daily for 3 weeks (you have had 1 day in the hospital already)--you will finish the twice daily dose on 12/19 in the evening; then start Xarelto 20 mg once daily--usually taken in the evening, start on 12/20. 3. Continue taking magnesium supplement daily, start taking calcium supplement daily with calcitriol--prescription vitamin D. 4. Decrease aspirin dose from 325 mg daily to 81 mg daily since you are on a blood thinner for the blood clot in her leg. 5. Continue using Benadryl tablets and Benadryl cream as needed for itching. 6. You can use hydrocortisone cream 1% on your face and eyelids if needed to help control itching. 7. Start digoxin once daily to help control your heart rate. 8. Use Aquaphor or zinc oxide (in the special antifungal cream wound care provided to you today) on the rash for comfort. 9. Report to the infusion center tomorrow at 8:30 AM for vancomycin dose, this will continue daily through 12/06/17. 10. Discontinue metformin for now *Expected Signs/Symptoms: Skin itching/flaking, some swelling in the right leg. *Notify Physician if: Fevers, bleeding, difficulty breathing *During Business Hours Contact: Dr. Mejia or Dr. Richardson *After Business Hours Contact: Call [facility] at [phone] and ask that the on-call physician be paged *Pending Lab/Results: Follow up w/Provider - Referrals/Follow Up *Referrals/Follow Up: Brandon Mejia MD [Primary Care Provider] - 1 Week Harjit Richardson MD [Physician] - (As per usual schedule) - Patient Handouts Patient Handouts: Sepsis (GEN) - Dismissal Complete Discharge Instructions are:: Complete Physician Narrative - Narrative Attestation Narrative: Date: 11/29/17 Time: 8027
[2017-12-20] MEDS ORDERED: RIVAROXABAN 20 MG TABLET PO SCH (17:30)
== END 2017-11-29 17:30 | disposition home or self-care (01) | DRG 314 ==
LOC: ED 13:16 → SUATTDRO 15:08 → EDHOLD 15:46 → CCU 17:15 → MED 11-24 15:35
PROVIDERS: ADMIT Internal Medicine; ATTEND Internal Medicine